=== PATIENT | male | born 1945 | race Caucasian/White ===

== ENCOUNTER 2016-09-07 13:11 | Emergency (ER) | payer MEDICARE, BC ==
--- NOTE | 2016-09-07 14:37 | ED ---
Ervin Mendoza Matthew, scribed for Jacklyn Fortune MD on 09/07/16 at 1425 . Progress - Progress Note Progress Note: A 70 y/o male presents to the ED with constipation. He recently had back surgery on August 15, 2016 for a fracture L1 disc. The patient has been taking numerous pain medications. His PCP did a rectal exam, but was unable to remove the blockage and a fleets at home was unsuccessful. Associated symptoms include mild diffuse abdominal pain. Physical Findings: Very mild bilateral lower quadrant abdominal tenderness labs kub ordered Course/Dx - Diagnoses Provider Diagnoses: Constipation The documentation as recorded by the rickibErvin gurrola Matthew accurately reflects the service I personally performed and the decisions made by , Jacklyn Fortune MD.
[2016-09-07 14:46] LABS: Urine Bilirubin Negative (Negative); Urine Glucose Negative (Negative); Urine Nitrite Negative (Negative)
--- NOTE | 2016-09-07 14:58 | RAD ---
HISTORY: Constipation COMPARISONS: None VIEWS: Frontal views of the abdomen. FINDINGS: BOWEL: There is a nonobstructive bowel gas pattern. There is a large amount of stool within the proximal and transverse colon, and rectum. CALCULI: There are no abnormal calculi. BONES AND SOFT TISSUES: The patient is status post spinal fusion OTHER FINDINGS: The lung bases are clear. There is no subphrenic gas. IMPRESSION: NONOBSTRUCTIVE BOWEL GAS PATTERN. LARGE AMOUNT OF STOOL IN THE COLON
[2016-09-07 16:04] VITALS: BP 131/57
[2016-09-07 16:40] LABS: Hematocrit 37 % (42-52); Hemoglobin 12.5 g/dl (14.0-18.0); Mean Corpuscular HGB Conc 33 g/dl (31-36); Mean Corpuscular Hemoglobin 30 pg (27-31); Mean Corpuscular Volume 89 fL (80-94); Mean Platelet Volume 8 um3 (7.4-10.4); Red Blood Count 4.18 10^6/ul (4.0-5.4); Red Cell Distribution Width 14 % (10.5-15); White Blood Count 6.5 10^3/ul (3.5-10.8)
[2016-09-07 16:56] LABS: ALT 18 U/L (7-52); AST 20 U/L (13-39); Albumin 3.7 g/dL (3.2-5.2); Alkaline Phosphatase 177 U/L (34-104); Anion Gap 9 mmol/L (2-11); BUN/Creatinine Ratio 28.6 (8-20); Blood Urea Nitrogen 20 mg/dL (6-24); C Reactive Protein 65.46 mg/L (< 5.00); CO2 Carbon Dioxide 27 mmol/L (22-32); Calcium 9.2 mg/dL (8.6-10.3); Chloride 95 mmol/L (101-111); EGFR African American 143.8 (>60); EGFR Non-African American 111.8 (>60); Globulin 2.8 g/dL (2-4); Glucose 120 mg/dL (70-100); Lipase < 10 U/L (11.0-82.0); Sodium 131 mmol/L (133-145); Total Protein 6.5 g/dL (6.4-8.9)
[2016-09-07] MEDS: NS 0.9% 1000 ML* 2,000 ML IV ONE ×2 (19:00→20:37)
--- NOTE | 2016-09-07 19:42 | RAD ---
INDICATION: Constipation, recent L2 surgery. COMPARISON: There are no prior studies available for comparison. TECHNIQUE: A CT scan of the abdomen and pelvis was performed without intravenous or oral contrast. Contiguous axial sections were obtained from the lung bases through the symphysis pubis. Images were reconstructed in the coronal and sagittal planes. FINDINGS: The lung bases are clear. No pleural effusion is present. The liver is mildly enlarged. No significant focal abnormality is seen on this noncontrast study. The gallbladder appears distended. The spleen is within normal limits in size. There is diffuse fatty infiltration present throughout the pancreas. The adrenal glands and kidneys are normal in size. No renal calculi or hydronephrosis is seen. The aorta is normal in caliber with mild calcific plaque present. No significant enlarged retroperitoneal lymph nodes are seen. The patient appears to be status post partial gastrectomy with removal of the antrum and a portion of the body of the stomach. The small bowel and colon appear nondistended. The appendix is not visualized. There is no evidence for diverticulitis or colitis. The rectum is distended with retained stool. There is a periumbilical hernia containing fat and a portion of the transverse colon. . No free intraperitoneal air or fluid is seen. There is a moderate compression fracture of the L1 vertebral body. There is stabilization of the fracture with a posterior spinal fusion extending from the T11 through the L3 levels with pedicle screws. IMPRESSION: 1. NO EVIDENCE FOR ACUTE INTRA-ABDOMINAL ABNORMALITY. 2. DISTENTION OF THE RECTUM WITH RETAINED STOOL CONSISTENT WITH THE PATIENT'S HISTORY OF CONSTIPATION. 3. PERIUMBILICAL HERNIA CONTAINING FAT AND NONDISTENDED TRANSVERSE COLON. 4. L1 COMPRESSION FRACTURE STATUS POST POSTERIOR SPINAL FUSION FROM T11 THROUGH L3.
--- NOTE | 2016-09-07 19:55 | RAD ---
INDICATION: Constipation and recent L2 surgery. COMPARISON: There are no prior studies available for comparison. TECHNIQUE: Contiguous axial sections were obtained beginning above the T12 vertebra and continuing through the L5-S1 disc space. Images were reconstructed in the sagittal and coronal planes. FINDINGS: The vertebra appear osteopenic. There is a burst fracture of the L1 vertebral body with loss of height of approximately 50%. There is retropulsion of fracture fragments into the anterior spinal canal approximately 5 mm. The fracture appears to involve the right L1 pedicle. There is a pedicle screw present on the left side. The patient is status post posterior spinal fusion from T11 through L3 with pedicle screws. The fracture is likely posttraumatic although a pathologic fracture cannot be excluded by this study. Evaluation of the spinal canal is limited due to metallic artifact from the surgical hardware. At the L1 level the spinal canal is mild to moderately narrowed secondary to retropulsion of fracture fragments from the burst fracture. At the L1-L2 level there is no evidence for spinal canal narrowing. Neural foramen appear patent on both sides. At the L2-L3 level there is a mild broad-based disc bulge and mild hypertrophic changes within the facet joints which causes mild spinal canal narrowing. Neural foramen appear patent on both sides. At the L3-L4 level there is a mild broad-based disc bulge and mild hypertrophic changes within the facet joints. No significant spinal canal or neural foraminal narrowing is seen. At the L4-L5 level there is a minimal broad-based disc bulge and mild hypertrophic changes within the facet joints. No significant spinal canal or neural foraminal narrowing is present. At the L5-S1 level there is a minimal broad-based disc bulge the spinal canal and neural foramen appear patent. IMPRESSION: BURST FRACTURE OF THE L1 VERTEBRAL BODY WITH EXTENSION INTO THE RIGHT PEDICLE STABILIZED WITH A POSTERIOR SPINAL FUSION. THERE IS RETROPULSION OF FRACTURE FRAGMENTS INTO THE ANTERIOR SPINAL CANAL CAUSING MILD TO MODERATE SPINAL CANAL NARROWING.
--- NOTE | 2016-09-07 21:10 | ED ---
Hina Mendoza Michael, scribed for Ibrahima Matos MD on 09/07/16 at 1742 . GI/ HPI - HPI Summary HPI Summary: 70 y/o male comes to the ED presenting with constipation that started 7 days ago. The pt previously had a back surgery on 08/15/16 to repair a L1 compression fracture that occurred on 08/05/16. Since the back surgery the pt has not had nml BM. His BM's have been small and black. The pt had a rectal exam performed by his PCP, but he was unable to remove the blockage. He also c/o three months of bilat paresthesia, diffuse abd pain, and has a wound on his left third toe. The pt denies bilat LE weakness and urination symptoms. - History of Current Complaint Chief Complaint: EDGeneral Time Seen by Provider: 09/07/16 17:37 Stated Complaint: constipation Hx Obtained From: Patient, Medical Records Onset/Duration: Started Days Ago - 7 days, Still Present Timing: Constant Severity: Moderate Current Severity: Moderate Pain Intensity: 6 Location of Pain: Diffuse Associated Signs and Symptoms: Positive: Constipation, Abdominal Pain, Other: - bilat LE paresthesia. wound on left 3rd toe.. Negative: Weakness - Allergy/Home Medications Allergies/Adverse Reactions: Allergies Allergy/AdvReac Type Severity Reaction Status Date / Time No Known Allergies Allergy Verified 10/27/15 15:50 PMH/Surg Hx/FS Hx/Imm Hx Previously Healthy: Yes - pt denies significant PMHx Infectious Disease History: No Infectious Disease History: Denies: Traveled Outside the [place] in Last 30 Days - Family History Known Family History: Positive: None Family History: pt denies a significant PMHx - Social History Occupation: Retired Lives: Alone Review of Systems Negative: Fever Positive: Abdominal Pain, Other - constipation Positive: Other - wound on left 3rd toe Positive: Paresthesia. Negative: Weakness All Other Systems Reviewed And Are Negative: Yes Physical Exam Triage Information Reviewed: Yes Vital Signs On Initial Exam: Initial Vitals Temp Pulse Resp BP Pulse Ox 99.2 F 68 18 124/58 99 09/07/16 13:27 09/07/16 13:27 09/07/16 13:27 09/07/16 13:27 09/07/16 13:27 Vital Signs Reviewed: Yes Appearance: Positive: Well-Appearing, No Pain Distress Skin: Positive: Warm, Skin Color Reflects Adequate Perfusion, Dry Head/Face: Positive: Normal Head/Face Inspection Eyes: Positive: EOMI, [place] ENT: Positive: Other - dry oral mucosa Neck: Positive: Supple, Nontender Respiratory/Lung Sounds: Positive: Clear to Auscultation, Breath Sounds Present Cardiovascular: Positive: RRR Abdomen Description: Positive: Nontender - diffuse tenderness, Soft Bowel Sounds: Positive: Hypoactive Male Genital Exam: Positive: other - RECTAL WITH GOOD RECTAL TONE, NO PERINEAL NUMBNESS. STOOL BLACK. STOOL INVAULT. Musculoskeletal: Positive: Normal, Strength/ROM Intact Neurological: Positive: Normal, Sensory/Motor Intact, Alert, Oriented to Person Place, Time Psychiatric: Positive: Affect/Mood Appropriate Diagnostics - Vital Signs Vital Signs Temp Pulse Resp BP Pulse Ox 09/07/16 16:03 98.7 F 75 16 131/57 100 09/07/16 14:46 97.4 F 70 16 115/53 100 09/07/16 13:27 99.2 F 68 18 124/58 99 - Laboratory Lab Results: Lab Results 09/07/16 09/07/16 09/07/16 Range/Units 14:20 16:16 16:16 WBC 6.5 (3.5-10.8) 10^3/ul RBC 4.18 (4.0-5.4) 10^6/ul Hgb 12.5 L (14.0-18.0) g/dl Hct 37 L (42-52) % MCV 89 (80-94) fL MCH 30 (27-31) pg MCHC 33 (31-36) g/dl RDW 14 (10.5-15) % Plt Count 229 (150-450) 10^3/ul MPV 8 (7.4-10.4) um3 Neut % (Auto) 73.5 (38-83) % Lymph % (Auto) 16.1 L (25-47) % [place] % (Auto) 8.4 (1-9) % Eos % (Auto) 1.3 (0-6) % Baso % (Auto) 0.7 (0-2) % Absolute Neuts (auto) 4.8 (1.5-7.7) 10^3/ul Absolute Lymphs (auto) 1.0 (1.0-4.8) 10^3/ul Absolute Monos (auto) 0.5 (0-0.8) 10^3/ul Absolute Eos (auto) 0.1 (0-0.6) 10^3/ul Absolute Basos (auto) 0 (0-0.2) 10^3/ul Absolute Nucleated RBC 0 10^3/ul Nucleated RBC % 0 Sodium 131 L (133-145) mmol/L Potassium 4.0 (3.5-5.0) mmol/L Chloride 95 L (101-111) mmol/L Carbon Dioxide 27 (22-32) mmol/L Anion Gap 9 (2-11) mmol/L BUN 20 (6-24) mg/dL Creatinine 0.70 (0.67-1.17) mg/dL Est GFR ( Amer) 143.8 (>60) Est GFR (Non-Af Amer) 111.8 (>60) BUN/Creatinine Ratio 28.6 H (8-20) Glucose 120 H (70-100) mg/dL Calcium 9.2 (8.6-10.3) mg/dL Total Bilirubin 0.50 (0.2-1.0) mg/dL AST 20 (13-39) U/L ALT 18 (7-52) U/L Alkaline Phosphatase 177 H (34-104) U/L C-Reactive Protein 65.46 H (< 5.00) mg/L Total Protein 6.5 (6.4-8.9) g/dL Albumin 3.7 (3.2-5.2) g/dL Globulin 2.8 (2-4) g/dL Albumin/Globulin Ratio 1.3 (1-3) Lipase < 10 L (11.0-82.0) U/L Urine Color [place] Urine Appearance Clear Urine pH 5.0 (5-9) Ur Specific [place] 1.036 H (1.010-1.030) Urine Protein Negative (Negative) Urine Ketones Trace H (Negative) Urine Blood Negative (Negative) Urine Nitrate Negative (Negative) Urine Bilirubin Negative (Negative) Urine Urobilinogen Negative (Negative) Ur Leukocyte Esterase Negative (Negative) Urine Glucose Negative (Negative) Result Diagrams: 09/07/16 16:16 09/07/16 16:16 Lab Statement: Any lab studies that have been ordered have been reviewed, and results considered in the medical decision making process. - Radiology ABD XR Xray Interpretation: Positive (See Comments) - NONOBSTRUCTIVE BOWEL GAS PATTERN. LARGE AMOUNT OF STOOL IN THE COLON Radiology Interpretation Completed By: Radiologist KATHLEEN Course/Dx - Course Assessment/Plan: RECTAL WITH GOOD TONE, NO NUMBNESS. LARGE AMOUNT OF STOOL AFTER SOAP SUDS ENEMA. DISCHARGE HOME STABLE. - Diagnoses Provider Diagnoses: Constipation Discharge - Discharge Plan Condition: Stable Disposition: HOME Patient Education Materials: Constipation (ED) Additional Instructions: FOLLOW UP WITH YOUR DOCTOR. RETURN TO THE EMERGENCY DEPARTMENT FOR ANY WORSENING OF YOUR CONDITION; PAIN, FEVER, WEAKNESS, NUMBNESS, YOU FEEL ILL OR QUESTIONS OR CONCERNS. The documentation as recorded by the Hina hernandez Michael accurately reflects the service I personally performed and the decisions made by me, Ibrahima Matos MD.
== END 2016-09-07 21:43 | disposition home or self-care (01) ==
LOC: ED 13:11
DX: K59.00 Constipation, unspecified (principal); R10.9 Unspecified abdominal pain; R20.9 Unspecified disturbances of skin sensation; S90.935A Unspecified superficial injury of left lesser toe(s), initial encounter
CPT/HCPCS: 36415; 72131; 74000; 74176; 80053; 81003; 82272; 83690; 85025; 86140; 96360; 99282

== ENCOUNTER 2016-09-10 16:25 | Emergency (ER) | payer MEDICARE, BC ==
[2016-09-10 18:04] VITALS: BP 140/80
[2016-09-10 19:44] LABS: Hematocrit 33 % (42-52); Hemoglobin 10.9 g/dl (14.0-18.0); Mean Corpuscular HGB Conc 33 g/dl (31-36); Mean Corpuscular Hemoglobin 30 pg (27-31); Mean Corpuscular Volume 90 fL (80-94); Mean Platelet Volume 8 um3 (7.4-10.4); Red Blood Count 3.69 10^6/ul (4.0-5.4); Red Cell Distribution Width 15 % (10.5-15); White Blood Count 4.9 10^3/ul (3.5-10.8)
[2016-09-10 20:01] LABS: Albumin 2.9 g/dL (3.2-5.2); BUN/Creatinine Ratio 26.5 (8-20); Calcium 8.2 mg/dL (8.6-10.3); EGFR Non-African American 168.8 (>60); Globulin 2.4 g/dL (2-4); Potassium 3.5 mmol/L (3.5-5.0); Total Bilirubin 0.4 mg/dL (0.2-1.0); Total Protein 5.3 g/dL (6.4-8.9)
--- NOTE | 2016-09-10 20:03 | RAD ---
INDICATION: Abdominal pain. COMPARISON: Comparison is made with a prior CT of the abdomen and pelvis from September 07, 2016. TECHNIQUE: Frontal supine films of the abdomen were obtained. FINDINGS: The small bowel and colon appear nondistended. There are several surgical clips which project in the right and left upper quadrants. The patient is status post posterior spinal fusion with pedicle screws extending from T11-L3. IMPRESSION: POSTSURGICAL CHANGES, NO EVIDENCE FOR OBSTRUCTION.
--- NOTE | 2016-09-10 21:05 | ED ---
Vianney Mendoza Erika, scribed for aJcklyn Fortune MD on 09/10/16 at 1845 . Abdominal Pain/Male - HPI Summary HPI Summary: Patient is a 70-year-old male presenting to the ED with a CC of diffuse abdominal pain starting at 15:00 today. He reports that he was resting today, when he woke up around 15:00 with what felt like gas pains in the bilateral lower abdomen. He took some Mylanta, which did not alleviate the symptoms. He then describes sudden-onset of what felt like "a big gas bubble that filled me up." He took more Mylanta at that time. Pt states that pain does not radiate into his chest, jaw, or arm. Pain has since resolved. Patient had spinal surgery in early August 2016, and has been taking pain medication. He states he has become constipated, so was seen here 3 days ago, where he had an Abd XR, CT A/P, and an enema - he felt improved after. PSHx ulcer surgery. Hx A Fib. Pt reports he lives alone, and does not smoke, drink, or use any drugs. - History of Current Complaint Chief Complaint: EDAbdPain Stated Complaint: ABD PAIN Time Seen by Provider: 09/10/16 18:40 Hx Obtained From: Patient, Family/Family Practice Nurse Practitioner - Onset/Duration: Gradual Onset, Lasting Hours, Resolved Timing: Intermittent Severity Initially: Moderate Pain Intensity: 3 Pain Scale Used: 0-10 Numeric Location: Diffuse Radiates: No Alleviating Factor(s): Other: - Mylanta - Allergies/Home Medications Allergies/Adverse Reactions: Allergies Allergy/AdvReac Type Severity Reaction Status Date / Time No Known Allergies Allergy Verified 10/27/15 15:50 PMH/Surg Hx/FS Hx/Imm Hx Cardiovascular History: Reports: Hx Atrial Fibrillation - Surgical History Surgery Procedure, Year, and Place: L2 SURGERY, ulcer Infectious Disease History: Denies: Traveled Outside the [place] in Last 30 Days - Family History Known Family History: Negative: Cardiac Disease, Hypertension, Diabetes - Social History Lives: Alone Alcohol Use: None Hx Substance Use: No Substance Use Type: Reports: None Hx Tobacco Use: No Smoking Status (MU): Never Smoked Tobacco Review of Systems Negative: Chest Pain Positive: Abdominal Pain Negative: Arthralgia, Myalgia All Other Systems Reviewed And Are Negative: Yes Physical Exam Triage Information Reviewed: Yes Vital Signs On Initial Exam: Initial Vitals Temp Pulse Resp BP Pulse Ox 97.5 F 82 10 140/80 97 09/10/16 17:54 09/10/16 17:54 09/10/16 17:54 09/10/16 17:54 09/10/16 17:54 Vital Signs Reviewed: Yes Appearance: Positive: Well-Appearing, No Pain Distress Skin: Positive: Warm, Skin Color Reflects Adequate Perfusion, Dry, Other - Wounds in the lumbar/thoracic area and clean, dry, and intact, with no erythema Eyes: Positive: EOMI, [place] Neck: Positive: Supple, Nontender Respiratory/Lung Sounds: Positive: Clear to Auscultation, Breath Sounds Present. Negative: Rales, Rhonchi, Wheezes Cardiovascular: Positive: RRR, Other - No gallops. Negative: Murmur, Rub Abdomen Description: Positive: Nontender, Soft, Other: - No rebound. Negative: Distended, Guarding Bowel Sounds: Positive: Present Musculoskeletal: Positive: Other - CASSANDRA, no edema Neurological: Positive: Sensory/Motor Intact, Alert, Oriented to Person Place, Time, Other - CN II-XII intact Psychiatric: Positive: Affect/Mood Appropriate Diagnostics - Vital Signs Vital Signs Temp Pulse Resp BP Pulse Ox 09/10/16 17:54 97.5 F 82 10 140/80 97 - Laboratory Lab Results: Lab Results 09/10/16 09/10/16 Range/Units 19:30 19:30 WBC 4.9 (3.5-10.8) 10^3/ul RBC 3.69 L (4.0-5.4) 10^6/ul Hgb 10.9 L (14.0-18.0) g/dl Hct 33 L (42-52) % MCV 90 (80-94) fL MCH 30 (27-31) pg MCHC 33 (31-36) g/dl RDW 15 (10.5-15) % Plt Count 221 (150-450) 10^3/ul MPV 8 (7.4-10.4) um3 Neut % (Auto) 70.1 (38-83) % Lymph % (Auto) 18.5 L (25-47) % [place] % (Auto) 8.2 (1-9) % Eos % (Auto) 2.2 (0-6) % Baso % (Auto) 1.0 (0-2) % Absolute Neuts (auto) 3.4 (1.5-7.7) 10^3/ul Absolute Lymphs (auto) 0.9 L (1.0-4.8) 10^3/ul Absolute Monos (auto) 0.4 (0-0.8) 10^3/ul Absolute Eos (auto) 0.1 (0-0.6) 10^3/ul Absolute Basos (auto) 0 (0-0.2) 10^3/ul Absolute Nucleated RBC 0 10^3/ul Nucleated RBC % 0 Sodium 140 (133-145) mmol/L Potassium 3.5 (3.5-5.0) mmol/L Chloride 107 (101-111) mmol/L Carbon Dioxide 25 (22-32) mmol/L Anion Gap 8 (2-11) mmol/L BUN 13 (6-24) mg/dL Creatinine 0.49 L (0.67-1.17) mg/dL Est GFR ( Amer) 217.0 (>60) Est GFR (Non-Af Amer) 168.8 (>60) BUN/Creatinine Ratio 26.5 H (8-20) Glucose 110 H (70-100) mg/dL Calcium 8.2 L (8.6-10.3) mg/dL Total Bilirubin 0.40 (0.2-1.0) mg/dL AST 49 H (13-39) U/L ALT 25 (7-52) U/L Alkaline Phosphatase 332 H (34-104) U/L Total Protein 5.3 L (6.4-8.9) g/dL Albumin 2.9 L (3.2-5.2) g/dL Globulin 2.4 (2-4) g/dL Albumin/Globulin Ratio 1.2 (1-3) Result Diagrams: 09/10/16 19:30 09/10/16 19:30 Lab Statement: Any lab studies that have been ordered have been reviewed, and results considered in the medical decision making process. - Radiology Abd XR Radiology Interpretation Completed By: Radiologist - IMPRESSION: POSTSURGICAL CHANGES, NO EVIDENCE FOR OBSTRUCTION. - EKG 18:55 Cardiac Rate: NL - 61 bpm EKG Rhythm: Sinus Rhythm EKG Interpretation: No ST elevation. No Q waves EKG Comparison: Other - No comparison available Abdominal Pain Fem Course/Dx - Course Course Of Treatment: pt without abdominal pain here - Diagnoses Provider Diagnoses: Abdominal pain Discharge - Discharge Plan Condition: Stable Disposition: HOME Patient Education Materials: Abdominal Pain (ED) Referrals: [facility] [place]Outside] Additional Instructions: Please follow up with your PCP. The documentation as recorded by the Vianney hernandez Erika accurately reflects the service I personally performed and the decisions made by me, Jacklyn Fortune MD.
== END 2016-09-10 21:50 | disposition home or self-care (01) ==
LOC: ED 16:25
DX: R10.9 Unspecified abdominal pain (principal)
CPT/HCPCS: 36415; 74000; 80053; 85025; 93005; 99282

== ENCOUNTER 2016-09-15 09:41 | Emergency (ER) | payer MEDICARE, BC ==
[2016-09-15] MEDS ORDERED: Ketorolac INJ* 30 MG/ML 1 ML VIAL IV ONE (12:15)
[2016-09-15 13:56] LABS: Hematocrit 32 % (42-52); Hemoglobin 10.6 g/dl (14.0-18.0); Mean Corpuscular HGB Conc 33 g/dl (31-36); Mean Corpuscular Hemoglobin 30 pg (27-31); Mean Corpuscular Volume 90 fL (80-94); Mean Platelet Volume 8 um3 (7.4-10.4); Red Blood Count 3.55 10^6/ul (4.0-5.4); Red Cell Distribution Width 15 % (10.5-15); White Blood Count 3.7 10^3/ul (3.5-10.8)
[2016-09-15 14:12] LABS: Troponin I 0.01 ng/mL (<0.04)
[2016-09-15 14:14] LABS: Albumin 2.6 g/dL (3.2-5.2); BUN/Creatinine Ratio 25.5 (8-20); Calcium 7.8 mg/dL (8.6-10.3); EGFR African American 227.7 (>60); EGFR Non-African American 177.1 (>60); Globulin 2.2 g/dL (2-4); Magnesium 1.6 mg/dL (1.9-2.7); Potassium 3.6 mmol/L (3.5-5.0); Total Bilirubin 0.3 mg/dL (0.2-1.0); Total Protein 4.8 g/dL (6.4-8.9)
[2016-09-15 14:53] LABS: TSH (Thyroid Stimulating Horm) 1.4 mcIU/mL (0.34-5.60)
[2016-09-15 15:06] VITALS: BP 107/50
--- NOTE | 2016-09-15 15:14 | ED ---
Ervin Mendoza Matthew, scribed for Oj Conner MD on 09/15/16 at 1215 . Palpitations / Dysrhythmia - HPI Summary HPI Summary: A 70 y/o male presents to the ED with AFib at 02:00 this morning, which lasted for approximately 4-5 hours. The patient took half of a sotalol upon awaking then went back to sleep. He then woke-up and took his normal medications. Soon after, his AFib resolved on its own. He denies lightheadedness, SOB, nausea, and diaphoresis during this episode of AFib. The patient's also c/o of multiple wounds to the left foot. - History of Current Complaint Chief Complaint: EDDysrhythmPalp Time Seen by Provider: 09/15/16 11:25 Hx Obtained From: Patient Onset/Duration: Sudden Onset, Lasting Hours, Resolved Timing: Constant Severity Initially: Moderate Severity Currently: None Character: Irregular Aggravating: Nothing Alleviating: Medication Associated Signs & Symptoms: Negative - Allergy/Home Medications Allergies/Adverse Reactions: Allergies Allergy/AdvReac Type Severity Reaction Status Date / Time No Known Allergies Allergy Verified 10/27/15 15:50 Home Medications: Home Medications Calcium [Oyster-Jamison 500] 500 mg PO DAILY 09/15/16 [History Confirmed 09/15/16] DOXYcycline CAP(*) [DOXYcycline 100MG CAP(*)] 100 mg PO BID 09/15/16 [History Confirmed 09/15/16] Magnesium Oxide TAB* [MagOx 400 TAB*] 400 mg PO DAILY 09/15/16 [History Confirmed 09/15/16] Multivitamins/Minerals TAB* [Theragran/minerals TAB*] 1 tab PO DAILY 09/15/16 [ History Confirmed 09/15/16] Omeprazole CAP* [Prilosec CAP* 20 MG] 20 mg PO DAILY 09/15/16 [History Confirmed 09/15/16] PMH/Surg Hx/FS Hx/Imm Hx Cardiovascular History: Reports: Hx Atrial Fibrillation - Surgical History Surgery Procedure, Year, and Place: L2 SURGERY, ulcer Infectious Disease History: No Infectious Disease History: Denies: Traveled Outside the [place] in Last 30 Days - Family History Known Family History: Negative: Cardiac Disease, Hypertension, Diabetes Family History: pt denies a significant PMHx - Social History Alcohol Use: None Hx Substance Use: No Substance Use Type: Reports: None Hx Tobacco Use: No Smoking Status (MU): Never Smoked Tobacco Review of Systems Constitutional: Negative Negative: Skin Diaphoresis Eyes: Negative ENT: Negative Cardiovascular: Other - AFib - since resolved Respiratory: Negative Negative: Shortness Of Breath Gastrointestinal: Negative Negative: Nausea Genitourinary: Negative Musculoskeletal: Negative Skin: Negative Neurological: Negative Psychological: Normal All Other Systems Reviewed And Are Negative: Yes Physical Exam Triage Information Reviewed: Yes Vital Signs On Initial Exam: Initial Vitals Temp Pulse Resp BP Pulse Ox 98.4 F 65 16 143/77 99 09/15/16 10:00 09/15/16 10:00 09/15/16 10:00 09/15/16 10:00 09/15/16 10:00 Vital Signs Reviewed: Yes Appearance: Positive: Well-Appearing, No Pain Distress Skin: Positive: Other - The patient's 2nd toe on the left foot is raw at the tip with open areas between the 2/3 and 3/4 toes. The 3ed toe looks necrotic on the lateral distal boarder. Head/Face: Positive: Normal Head/Face Inspection Eyes: Positive: Normal ENT: Positive: Normal ENT inspection Neck: Positive: Supple, Nontender Respiratory/Lung Sounds: Positive: Clear to Auscultation, Breath Sounds Present Cardiovascular: Positive: RRR Abdomen Description: Positive: Nontender, Soft Bowel Sounds: Positive: Present Musculoskeletal: Positive: Normal, Strength/ROM Intact Neurological: Positive: Normal, Sensory/Motor Intact, Alert, Oriented to Person Place, Time Psychiatric: Positive: Normal, Affect/Mood Appropriate Diagnostics - Vital Signs Vital Signs Temp Pulse Resp BP Pulse Ox 09/15/16 10:30 64 10 135/57 98 09/15/16 10:07 65 99 09/15/16 10:05 143/77 09/15/16 10:00 98.4 F 65 16 143/77 99 - Laboratory Lab Results: Lab Results 09/15/16 09/15/16 09/15/16 Range/Units 13:48 13:48 13:48 WBC 3.7 (3.5-10.8) 10^3/ul RBC 3.55 L (4.0-5.4) 10^6/ul Hgb 10.6 L (14.0-18.0) g/dl Hct 32 L (42-52) % MCV 90 (80-94) fL MCH 30 (27-31) pg MCHC 33 (31-36) g/dl RDW 15 (10.5-15) % Plt Count 201 (150-450) 10^3/ul MPV 8 (7.4-10.4) um3 Neut % (Auto) 65.1 (38-83) % Lymph % (Auto) 22.6 L (25-47) % [place] % (Auto) 8.3 (1-9) % Eos % (Auto) 2.6 (0-6) % Baso % (Auto) 1.4 (0-2) % Absolute Neuts (auto) 2.4 (1.5-7.7) 10^3/ul Absolute Lymphs (auto) 0.8 L (1.0-4.8) 10^3/ul Absolute Monos (auto) 0.3 (0-0.8) 10^3/ul Absolute Eos (auto) 0.1 (0-0.6) 10^3/ul Absolute Basos (auto) 0.1 (0-0.2) 10^3/ul Absolute Nucleated RBC 0 10^3/ul Nucleated RBC % 0.1 Sodium 138 (133-145) mmol/L Potassium 3.6 (3.5-5.0) mmol/L Chloride 105 (101-111) mmol/L Carbon Dioxide 27 (22-32) mmol/L Anion Gap 6 (2-11) mmol/L BUN 12 (6-24) mg/dL Creatinine 0.47 L (0.67-1.17) mg/dL Est GFR ( Amer) 227.7 (>60) Est GFR (Non-Af Amer) 177.1 (>60) BUN/Creatinine Ratio 25.5 H (8-20) Glucose 97 (70-100) mg/dL Lactic Acid 0.7 (0.5-2.0) mmol/L Calcium 7.8 L (8.6-10.3) mg/dL Magnesium 1.6 L (1.9-2.7) mg/dL Total Bilirubin 0.30 (0.2-1.0) mg/dL AST 14 (13-39) U/L ALT 8 (7-52) U/L Alkaline Phosphatase 152 H (34-104) U/L Troponin I 0.01 (<0.04) ng/mL Total Protein 4.8 L (6.4-8.9) g/dL Albumin 2.6 L (3.2-5.2) g/dL Globulin 2.2 (2-4) g/dL Albumin/Globulin Ratio 1.2 (1-3) TSH 1.40 (0.34-5.60) mcIU/mL Result Diagrams: 09/15/16 13:48 09/15/16 13:48 Lab Statement: Any lab studies that have been ordered have been reviewed, and results considered in the medical decision making process. - EKG 09:41 Cardiac Rate: NL - 69 bpm EKG Rhythm: Sinus Rhythm Course/Dx - Course Course Of Treatment: Mr. Walden presetned saying that he had a 4-5 hour episdoe of A-Fib that has now resolved.. He took an extra Sotolol. His W/U and monitoring here were normal and he will be D/C'd to F/U with his PMD. He has open sores on his left 2nd and 3rd toes and these may need further W/U. - Diagnoses Provider Diagnoses: Heart palpitations Discharge - Discharge Plan Condition: Stable Disposition: HOME Patient Education Materials: Palpitations (ED) Referrals: [facility] – [place] [facility] REFERRAL [Outside] Additional Instructions: Please follow-up with your primary care physician in 2 days. The documentation as recorded by the Ervin hernandez Matthew accurately reflects the service I personally performed and the decisions made by me, Oj Conner MD.
== END 2016-09-15 15:19 | disposition home or self-care (01) ==
LOC: ED 09:41
DX: R00.2 Palpitations (principal); I48.91 Unspecified atrial fibrillation; S91.302A Unspecified open wound, left foot, initial encounter; X58.XXXA Exposure to other specified factors, initial encounter; Y92.9 Unspecified place or not applicable
CPT/HCPCS: 36415; 80053; 83605; 83735; 84443; 84484; 85025; 93005; 96374; 99283; J1885

== ENCOUNTER 2016-10-04 07:13 | Emergency (ER) | payer MEDICARE, BC ==
[2016-10-04] MEDS ORDERED: Diltiazem DRIP* 100 MG/100 ML ADDV.BAG IVPB ONE (07:37)
[2016-10-04] MEDS ORDERED: Diltiazem IV* 5 MG/ML 5 ML VIAL (for loading dose/IV Push) (25 MG) IV PUSH ONE (07:37)
[2016-10-04] MEDS ORDERED: NS 0.9% 1000 ML* 1,000 ML IV ONE (07:37)
[2016-10-04 07:50] LABS: Hematocrit 37 % (42-52); Hemoglobin 12.2 g/dl (14.0-18.0); Mean Corpuscular HGB Conc 33 g/dl (31-36); Mean Corpuscular Hemoglobin 29 pg (27-31); Mean Corpuscular Volume 88 fL (80-94); Mean Platelet Volume 8 um3 (7.4-10.4); Red Blood Count 4.22 10^6/ul (4.0-5.4); Red Cell Distribution Width 15 % (10.5-15); White Blood Count 8.6 10^3/ul (3.5-10.8)
--- NOTE | 2016-10-04 08:02 | RAD ---
INDICATION: Pneumonia. CHF. COMPARISON: None TECHNIQUE: An AP portable view obtained at 0745 hours is submitted. FINDINGS: Bones/Soft Tissues: There are no acute bony findings. Cardiomediastinal: The cardiomediastinal silhouette is normal. Lungs: Mild right base infiltrate or atelectasis. Pleura: There are no significant pleural effusions. Other: None IMPRESSION: MILD RIGHT BASILAR INFILTRATE OR ATELECTASIS
[2016-10-04 08:04] LABS: Troponin I 0.01 ng/mL (<0.04)
[2016-10-04 08:29] LABS: TSH (Thyroid Stimulating Horm) 1.08 mcIU/mL (0.34-5.60)
[2016-10-04 08:38] LABS: Albumin 3.6 g/dL (3.2-5.2); BUN/Creatinine Ratio 14.8 (8-20); EGFR African American 168.6 (>60); EGFR Non-African American 131.1 (>60); Globulin 3.1 g/dL (2-4); Magnesium 1.7 mg/dL (1.9-2.7); Potassium 3.7 mmol/L (3.5-5.0); Total Bilirubin 0.4 mg/dL (0.2-1.0); Total Protein 6.7 g/dL (6.4-8.9)
[2016-10-04 08:42] LABS: Urine Bilirubin Negative (Negative); Urine Glucose Negative (Negative); Urine Nitrite Negative (Negative)
[2016-10-04 09:04] VITALS: BP 146/49
--- NOTE | 2016-10-04 09:37 | ED ---
Justen Mendoza SooYoung, scribed for Guillermo Mayes MD on 10/04/16 at 0723 . Palpitations / Dysrhythmia - HPI Summary HPI Summary: A 70 y/o M presents to ED with c/o afib onset middle of night, woke him from sleep. Pert PMHx: Afib, has been admitted for it. Denies CP, SOB, dizziness. Pt unable to describe sensation.His doctor recommends on such occasions that he take 1/2 a Sotalol and 2 Tylenol and try to go back to sleep, which is what pt did. Seemed to mildly help, but did not resolve entirely. He notes having had several operations over the past few months, including inguinal stent for blocked artery in L foot two days ago. Pt started Plavix three days ago. He is schedule to see his roof bolter helper in [place] in two days. - History of Current Complaint Time Seen by Provider: 10/04/16 07:17 Hx Obtained From: Patient Onset/Duration: Sudden Onset, Lasting Hours, Still Present Timing: Constant Severity Initially: Moderate Severity Currently: Mild Alleviating: Medication Associated Signs & Symptoms: Negative - Allergy/Home Medications Allergies/Adverse Reactions: Allergies Allergy/AdvReac Type Severity Reaction Status Date / Time No Known Allergies Allergy Verified 10/02/16 09:01 PMH/Surg Hx/FS Hx/Imm Hx Previously Healthy: No Endocrine/Hematology History: Denies: Hx Diabetes Cardiovascular History: Reports: Hx Atrial Fibrillation - Surgical History Surgery Procedure, Year, and Place: L1 SURGERY, INTESTINAL SURGERY, R Wrist - Family History Known Family History: Positive: None Negative: Cardiac Disease, Hypertension, Diabetes Family History: pt denies a significant PMHx - Social History Occupation: Retired Lives: Alone Alcohol Use: None Hx Substance Use: No Substance Use Type: Reports: None Hx Tobacco Use: No Smoking Status (MU): Never Smoked Tobacco Review of Systems Positive: Palpitations - afib. Negative: Chest Pain Negative: Shortness Of Breath Neurological: Other - neg: dizziness All Other Systems Reviewed And Are Negative: Yes Physical Exam - Summary Physical Exam Summary: The patient is well-nourished in no acute distress and in no acute pain. The skin is warm and dry. PALE. HEENT: The head is normocephalic and atraumatic. The pupils are equal and reactive. The conjunctivae are clear and without drainage. Nares are patent and without drainage, NO RHINORRHEA. MILDLY DRY ORAL mucous membranes and the throat is without erythema and exudate. The external ears are intact. The ear canals are patent and without drainage. The tympanic membranes are intact. Neck is supple with full range of motion and non-tender. There are no carotid bruits. There is no neck vein distension. Respiratory: Chest is non-tender. Lungs are clear to auscultation and breath sounds are symmetrical and equal. Cardiovascular: TACHYCARDIC, IRREGULAR. There is no murmur or rub auscultated. There is no peripheral edema and FEMORAL PULSES ARE GOOD, DORSAL PEDIS PULSES GOOD IN BOTH FEET. Abdomen: The abdomen is soft and non-tender. There are normal bowel sounds heard in all four quadrants and there is no organomegaly palpated. Musculoskeletal: There is no back pain noted. Extremities are non-tender with full range of motion. There is good capillary refill. There is no peripheral edema or calf tenderness elicited. Neurological: Patient is alert and oriented to person, place and time. The patient has symmetrical motor strength in all four extremities. Cranial nerves are grossly intact. Deep tendon reflexes are symmetrical and equal in all four extremities. Psychiatric: The patient has an appropriate affect and does not exhibit any anxiety or depression. Triage Information Reviewed: Yes Vital Signs On Initial Exam: Initial Vitals Temp Pulse Resp BP Pulse Ox 97.8 F 112 16 152/88 100 10/04/16 07:16 10/04/16 07:16 10/04/16 07:16 10/04/16 07:16 10/04/16 07:16 Vital Signs Reviewed: Yes Diagnostics - Vital Signs Vital Signs Temp Pulse Resp BP Pulse Ox 10/04/16 09:25 97.9 F 63 20 146/49 10/04/16 09:00 62 20 146/49 98 10/04/16 08:30 127/52 10/04/16 08:25 122/50 10/04/16 08:20 73 16 133/49 98 10/04/16 08:15 87 21 131/63 98 10/04/16 08:10 128/76 10/04/16 08:05 88 11 135/63 98 10/04/16 08:00 93 17 118/57 99 10/04/16 07:55 89 12 123/55 100 10/04/16 07:33 118 24 99 10/04/16 07:32 136/75 10/04/16 07:16 97.8 F 112 16 152/88 100 - Laboratory Lab Results: Lab Results 10/04/16 10/04/16 10/04/16 Range/Units 07:26 07:26 07:26 WBC 8.6 (3.5-10.8) 10^3/ul RBC 4.22 (4.0-5.4) 10^6/ul Hgb 12.2 L (14.0-18.0) g/dl Hct 37 L (42-52) % MCV 88 (80-94) fL MCH 29 (27-31) pg MCHC 33 (31-36) g/dl RDW 15 (10.5-15) % Plt Count 278 (150-450) 10^3/ul MPV 8 (7.4-10.4) um3 Neut % (Auto) 69.8 (38-83) % Lymph % (Auto) 21.1 L (25-47) % [place] % (Auto) 6.0 (1-9) % Eos % (Auto) 1.7 (0-6) % Baso % (Auto) 1.4 (0-2) % Absolute Neuts (auto) 6.0 (1.5-7.7) 10^3/ul Absolute Lymphs (auto) 1.8 (1.0-4.8) 10^3/ul Absolute Monos (auto) 0.5 (0-0.8) 10^3/ul Absolute Eos (auto) 0.1 (0-0.6) 10^3/ul Absolute Basos (auto) 0.1 (0-0.2) 10^3/ul Absolute Nucleated RBC 0 10^3/ul Nucleated RBC % 0 INR (Anticoag Therapy) (0.89-1.11) APTT (26.0-36.3) seconds Sodium 138 (133-145) mmol/L Potassium 3.7 (3.5-5.0) mmol/L Chloride 101 (101-111) mmol/L Carbon Dioxide 27 (22-32) mmol/L Anion Gap 10 (2-11) mmol/L BUN 9 (6-24) mg/dL Creatinine 0.61 L (0.67-1.17) mg/dL Est GFR ( Amer) 168.6 (>60) Est GFR (Non-Af Amer) 131.1 (>60) BUN/Creatinine Ratio 14.8 (8-20) Glucose 147 H (70-100) mg/dL Lactic Acid 1.6 (0.5-2.0) mmol/L Calcium 9.0 (8.6-10.3) mg/dL Magnesium 1.7 L (1.9-2.7) mg/dL Total Bilirubin 0.40 (0.2-1.0) mg/dL AST 13 (13-39) U/L ALT 10 (7-52) U/L Alkaline Phosphatase 141 H (34-104) U/L Troponin I 0.01 (<0.04) ng/mL B-Natriuretic Peptide ( - 100) pg/mL Total Protein 6.7 (6.4-8.9) g/dL Albumin 3.6 (3.2-5.2) g/dL Globulin 3.1 (2-4) g/dL Albumin/Globulin Ratio 1.2 (1-3) TSH 1.08 (0.34-5.60) mcIU/mL Urine Color Urine Appearance Urine pH (5-9) Ur Specific [place] (1.010-1.030) Urine Protein (Negative) Urine Ketones (Negative) Urine Blood (Negative) Urine Nitrate (Negative) Urine Bilirubin (Negative) Urine Urobilinogen (Negative) Ur Leukocyte Esterase (Negative) Urine Glucose (Negative) 10/04/16 10/04/16 10/04/16 Range/Units 07:26 07:26 08:30 WBC (3.5-10.8) 10^3/ul RBC (4.0-5.4) 10^6/ul Hgb (14.0-18.0) g/dl Hct (42-52) % MCV (80-94) fL MCH (27-31) pg MCHC (31-36) g/dl RDW (10.5-15) % Plt Count (150-450) 10^3/ul MPV (7.4-10.4) um3 Neut % (Auto) (38-83) % Lymph % (Auto) (25-47) % [place] % (Auto) (1-9) % Eos % (Auto) (0-6) % Baso % (Auto) (0-2) % Absolute Neuts (auto) (1.5-7.7) 10^3/ul Absolute Lymphs (auto) (1.0-4.8) 10^3/ul Absolute Monos (auto) (0-0.8) 10^3/ul Absolute Eos (auto) (0-0.6) 10^3/ul Absolute Basos (auto) (0-0.2) 10^3/ul Absolute Nucleated RBC 10^3/ul Nucleated RBC % INR (Anticoag Therapy) 0.91 (0.89-1.11) APTT 33.4 (26.0-36.3) seconds Sodium (133-145) mmol/L Potassium (3.5-5.0) mmol/L Chloride (101-111) mmol/L Carbon Dioxide (22-32) mmol/L Anion Gap (2-11) mmol/L BUN (6-24) mg/dL Creatinine (0.67-1.17) mg/dL Est GFR ( Amer) (>60) Est GFR (Non-Af Amer) (>60) BUN/Creatinine Ratio (8-20) Glucose (70-100) mg/dL Lactic Acid (0.5-2.0) mmol/L Calcium (8.6-10.3) mg/dL Magnesium (1.9-2.7) mg/dL Total Bilirubin (0.2-1.0) mg/dL AST (13-39) U/L ALT (7-52) U/L Alkaline Phosphatase (34-104) U/L Troponin I (<0.04) ng/mL B-Natriuretic Peptide 200 H ( - 100) pg/mL Total Protein (6.4-8.9) g/dL Albumin (3.2-5.2) g/dL Globulin (2-4) g/dL Albumin/Globulin Ratio (1-3) TSH (0.34-5.60) mcIU/mL Urine Color Straw Urine Appearance Clear Urine pH 5.0 (5-9) Ur Specific [place] 1.006 L (1.010-1.030) Urine Protein Negative (Negative) Urine Ketones Negative (Negative) Urine Blood Negative (Negative) Urine Nitrate Negative (Negative) Urine Bilirubin Negative (Negative) Urine Urobilinogen Negative (Negative) Ur Leukocyte Esterase Negative (Negative) Urine Glucose Negative (Negative) Result Diagrams: 10/04/16 07:26 10/04/16 07:26 Lab Statement: Any lab studies that have been ordered have been reviewed, and results considered in the medical decision making process. - Radiology CXR Xray Interpretation: Positive (See Comments) - INPRESSION: Mild R basilar infiltrate or a telectasis. Radiology Interpretation Completed By: Radiologist - EKG 1 EKG Rhythm: Atrial Fibrillation - RVR ST Segment: Non-Specific 2 Cardiac Rate: NL EKG Rhythm: Sinus Rhythm EKG Interpretation: LAD, old daniele RI Re-Evaluation - Re-Evaluation 1 Re-Evaluation Time: 09:11 Change: Improved Comment: Discussing lab and CXR results with pt. Pt states feeling better. HR is in 60s, still afib. Ordered repeat EKG. Discussed increasing Sotalol with pt until he sees roof bolter helper in two days. Pt voiced understanding. Course/Dx - Course Course Of Treatment: MDM: A 70 y/o M with PMHx: afeb presents with c/o of Afib onset 0300. Denies CP, SOB, dizziness. Recent surgery (inguinal stent) two days ago. Pt is not on blood thinners. EKG shows Afib with RVR and nonspecific ST changes. CXR shows mild right basilar infiltrate or a telectasis. Negative troponin. UA is negative with specific gravity of 1.006. Repeat EKG shows NSR, LAD, old daniele RI. Patient will be D/C home and increase his Sotalol to 120 mg q2d. F/u with cardiology in two days as sched. Pt is agreeable with this plan , voiced understanding. - Diagnoses Differential Diagnosis/HQI/PQRI: Positive: Hypokalemia, Other - atrial fibrillation, Provider Diagnoses: atrial fibrillation with RVR resolved Discharge - Discharge Plan Condition: Stable Disposition: HOME Patient Education Materials: Sotalol (By mouth), Atrial Fibrillation (ED) Referrals: Carolin Mendez ASSISTANT MEDIA PLANNER [Primary Care Provider] - Additional Instructions: As we discussed: Increase your Sotalol to 120 mg, take 2x a day. See your roof bolter helper on Wednesday as scheduled, bring your EKGs and discuss medication dosage The documentation as recorded by the Justen hernandez SooYoung accurately reflects the service I personally performed and the decisions made by me, Guillermo Mayes MD.
== END 2016-10-04 09:25 | disposition home or self-care (01) ==
LOC: ED 07:13
DX: I48.91 Unspecified atrial fibrillation (principal); I25.2 Old myocardial infarction
CPT/HCPCS: 36415; 71010; 80053; 81003; 83605; 83735; 83880; 84443; 84484; 85025; 85610; 85730; 93005; 96360; 96374; 99283

== ENCOUNTER 2016-11-20 05:41 | Emergency (ER) | payer MEDICARE, BC ==
[2016-11-20 06:19] LABS: Hematocrit 45 % (42-52); Hemoglobin 14.7 g/dl (14.0-18.0); Mean Corpuscular HGB Conc 33 g/dl (31-36); Mean Corpuscular Hemoglobin 29 pg (27-31); Mean Corpuscular Volume 88 fL (80-94); Mean Platelet Volume 8 um3 (7.4-10.4); Red Blood Count 5.08 10^6/ul (4.0-5.4); Red Cell Distribution Width 17 % (10.5-15); White Blood Count 6.2 10^3/ul (3.5-10.8)
[2016-11-20 06:31] LABS: Albumin 4.1 g/dL (3.2-5.2); BUN/Creatinine Ratio 19.3 (8-20); Calcium 9.4 mg/dL (8.6-10.3); EGFR African American 181.7 (>60); EGFR Non-African American 141.3 (>60); Globulin 2.6 g/dL (2-4); Magnesium 1.7 mg/dL (1.9-2.7); Potassium 4.3 mmol/L (3.5-5.0); Total Bilirubin 0.7 mg/dL (0.2-1.0); Total Protein 6.7 g/dL (6.4-8.9)
--- NOTE | 2016-11-20 06:50 | ED ---
jenny Mendoza Timothy, scribed for Deshawn Obrien MD on 11/20/16 at 0559 . HPI Cardiac - HPI Summary HPI Summary: Daryn Walden is a 71 yo male presenting to [facility] with "pounding and punching" in his gut, which he states are the same Sx he had when he was in Afib. He states he now has an empty feeling in his stomach. He states he went into Afib yesterday at 1600. He is on warfarin and sotalol, as well as aspirin. His MHx includes CHF, Afib, HLD, aortic valve "slushy". - History of Current Complaint Stated Complaint: POSS AFIB Time Seen by Provider: 11/20/16 05:59 Hx Obtained From: Patient Onset/Duration: Started Hours Ago, Still Present Time of Onset: 16:00 - 11/09/16 Timing: Constant Initial Severity: Moderate Current Severity: Moderate Pain Intensity: 0 Pain Scale Used: 0-10 Numeric Character: Pounding - "punching" Associated Signs and Symptoms: Positive: Palpitations - "pounding" - Allergy/Home Medications Allergies/Adverse Reactions: Allergies Allergy/AdvReac Type Severity Reaction Status Date / Time No Known Allergies Allergy Verified 10/02/16 09:01 PMH/Surg Hx/FS Hx/Imm Hx Endocrine/Hematology History: Denies: Hx Diabetes Cardiovascular History: Reports: Hx Atrial Fibrillation, Hx Congestive Heart Failure - Surgical History Surgery Procedure, Year, and Place: L1 SURGERY, INTESTINAL SURGERY, R Wrist Infectious Disease History: No Infectious Disease History: Denies: Traveled Outside the [place] in Last 30 Days - Family History Known Family History: Positive: None Negative: Cardiac Disease, Hypertension, Diabetes Family History: pt denies a significant PMHx - Social History Alcohol Use: None Hx Substance Use: No Substance Use Type: Reports: None Hx Tobacco Use: No Smoking Status (MU): Never Smoked Tobacco Review of Systems Constitutional: Negative Eyes: Negative ENT: Negative Cardiovascular: Negative Respiratory: Negative Gastrointestinal: Other - pounding/punching with empty feeling in gut Genitourinary: Negative Musculoskeletal: Negative Skin: Negative Neurological: Negative Psychological: Normal All Other Systems Reviewed And Are Negative: Yes Physical Exam Triage Information Reviewed: Yes Vital Signs On Initial Exam: Initial Vitals Temp Pulse Resp BP Pulse Ox 98.1 F 69 18 154/70 100 11/20/16 05:47 11/20/16 05:47 11/20/16 05:47 11/20/16 05:47 11/20/16 05:47 Vital Signs Reviewed: Yes Appearance: Positive: Well-Appearing, No Pain Distress Skin: Positive: Warm Head/Face: Positive: Normal Head/Face Inspection Eyes: Positive: [place] ENT: Positive: Hearing grossly normal Neck: Positive: Supple Respiratory/Lung Sounds: Positive: Clear to Auscultation, Breath Sounds Present Cardiovascular: Positive: IRR, Tachycardia Abdomen Description: Positive: Nontender, Soft Bowel Sounds: Positive: Present Musculoskeletal: Positive: Strength/ROM Intact Neurological: Positive: Sensory/Motor Intact, Normal Gait Diagnostics - Vital Signs Vital Signs Temp Pulse Resp BP Pulse Ox 11/20/16 05:47 98.1 F 69 18 154/70 100 - Laboratory Lab Results: Lab Results 11/20/16 11/20/16 11/20/16 Range/Units 05:55 05:55 05:55 WBC 6.2 (3.5-10.8) 10^3/ul RBC 5.08 (4.0-5.4) 10^6/ul Hgb 14.7 (14.0-18.0) g/dl Hct 45 (42-52) % MCV 88 (80-94) fL MCH 29 (27-31) pg MCHC 33 (31-36) g/dl RDW 17 H (10.5-15) % Plt Count 178 (150-450) 10^3/ul MPV 8 (7.4-10.4) um3 Neut % (Auto) 60.3 (38-83) % Lymph % (Auto) 30.2 (25-47) % [place] % (Auto) 7.3 (1-9) % Eos % (Auto) 0.8 (0-6) % Baso % (Auto) 1.4 (0-2) % Absolute Neuts (auto) 3.8 (1.5-7.7) 10^3/ul Absolute Lymphs (auto) 1.9 (1.0-4.8) 10^3/ul Absolute Monos (auto) 0.5 (0-0.8) 10^3/ul Absolute Eos (auto) 0 (0-0.6) 10^3/ul Absolute Basos (auto) 0.1 (0-0.2) 10^3/ul Absolute Nucleated RBC 0.01 10^3/ul Nucleated RBC % 0.1 Sodium 136 (133-145) mmol/L Potassium 4.3 (3.5-5.0) mmol/L Chloride 100 L (101-111) mmol/L Carbon Dioxide 26 (22-32) mmol/L Anion Gap 10 (2-11) mmol/L BUN 11 (6-24) mg/dL Creatinine 0.57 L (0.67-1.17) mg/dL Est GFR ( Amer) 181.7 (>60) Est GFR (Non-Af Amer) 141.3 (>60) BUN/Creatinine Ratio 19.3 (8-20) Glucose 121 H (70-100) mg/dL Lactic Acid 1.3 (0.5-2.0) mmol/L Calcium 9.4 (8.6-10.3) mg/dL Magnesium 1.7 L (1.9-2.7) mg/dL Total Bilirubin 0.70 (0.2-1.0) mg/dL AST 24 (13-39) U/L ALT 28 (7-52) U/L Alkaline Phosphatase 97 (34-104) U/L Troponin I 0.00 (<0.04) ng/mL Total Protein 6.7 (6.4-8.9) g/dL Albumin 4.1 (3.2-5.2) g/dL Globulin 2.6 (2-4) g/dL Albumin/Globulin Ratio 1.6 (1-3) TSH Pending Result Diagrams: 11/20/16 05:55 11/20/16 05:55 Lab Statement: Any lab studies that have been ordered have been reviewed, and results considered in the medical decision making process. - Radiology CXR Xray Interpretation: No Acute Changes - No acute cardiopulmonary disease Radiology Interpretation Completed By: ED Physician - EKG 0549 Cardiac Rate: NL - 67 BPM EKG Interpretation: Afib @ 67 BPM 0608 Cardiac Rate: NL - 63 BPM EKG Interpretation: NSR @ 63 BPM, normal EKG. Re-Evaluation - Re-Evaluation First Eval Re-Evaluation Time: 06:00 - pt converted spontaneously to nsr Change: Improved Disposition - Course Assessment/Plan: Daryn Walden is a 71 yo male presenting to [facility] with pounding in his gut, similar to Sx he had when he was in Afib. His first EKG revealed AFib. His second EKG was WNL. His CXR suggested no acute cardiopulmonary disease. After clinical examination and review of his EKG's and lab work, he will be signed out to Dr. Harley pending further evaluation and work up. - Differential Dx - Cardiopulmonary Differential Diagnoses - Cardiopulmonary: Atrial Fibrillation - Diagnoses Provider Diagnoses: Paroxysmal a-fib Discharge - Discharge Plan Condition: Improved Disposition: HOME Discharge Disposition Comment: signed out to Dr. Harley pending further evaluation Patient Education Materials: A-fib (Atrial Fibrillation) (ED) Referrals: Anurag SLAUGHTER,Jordan Nuñez [Medical Doctor] - 4 Days Carolin Mendez NP [Primary Care Provider] - 4 Days Additional Instructions: Please follow-up with your primary care physician and Dr. Mccarthy next week. The documentation as recorded by the jenny hernandez Timothy accurately reflects the service I personally performed and the decisions made by me, Deshawn Obrien MD.
[2016-11-20 07:08] LABS: TSH (Thyroid Stimulating Horm) 2.24 mcIU/mL (0.34-5.60)
--- NOTE | 2016-11-20 07:48 | RAD ---
HISTORY: Palpitation COMPARISONS: October 04, 2016 VIEWS: 2: Frontal dual-energy and lateral views of the chest. FINDINGS: CARDIOMEDIASTINAL SILHOUETTE: The cardiomediastinal silhouette is normal. MIGUE: The migue are normal. PLEURA: The costophrenic angles are sharp. No pleural abnormalities are noted. LUNG PARENCHYMA: There is hyperinflation with flattening of the diaphragm and expansion of the AP diameter of the chest. ABDOMEN: The upper abdomen is clear. There is no subphrenic gas. BONES AND SOFT TISSUES: The patient is status post spinal fusion. OTHER: None. IMPRESSION: HYPERINFLATION, CONSISTENT WITH COPD. NO ACTIVE CARDIOPULMONARY DISEASE.
[2016-11-20] MEDS ORDERED: Warfarin TAB(*) 5 MG PO ONE (08:44)
[2016-11-20] MEDS ORDERED: Magnesium Oxide TAB* 400 MG PO ONE (08:46)
[2016-11-20 09:38] VITALS: BP 110/52
--- NOTE | 2016-11-20 11:04 | ED ---
Ervin Mendoza Matthew, scribed for Irwin Harley MD on 11/20/16 at 0845 . Progress - Progress Note Progress Note: The patient is a sign out from Dr. Obrien. He is a 71 y/o male who presents to the ED for palpitations and SOB since 16:00 yesterday afternoon. Currently, the patient states that he is feeling better. VITAL SIGNS: Reviewed. GENERAL: Patient is a well developed and nourished elderly male who is lying comfortable in the stretcher. Patient is not in any acute respiratory distress. HEAD AND FACE: No signs of trauma. No ecchymosis, hematomas or skull depressions. No sinus tenderness. EYES: PERRLA, EOMI x 2, No injected conjunctiva, no nystagmus. EARS: Hearing grossly intact. Ear canals and tympanic membranes are within normal limits. MOUTH: Oropharynx within normal limits. NECK: Supple, trachea is midline, no adenopathy, no JVD, no carotid bruit, no c- spine tenderness, neck with full ROM. CHEST: Symmetric, no tenderness at palpation LUNGS: Clear to auscultation bilaterally. No wheezing or crackles. CVS: Irregular rate and rhythm, S1 and S2 present, no murmurs or gallops appreciated. ABDOMEN: Soft, non-tender. No signs of distention. No rebound no guarding, and no masses palpated. Bowel sounds are normal. EXTREMITIES: FROM in all major joints, no edema, no cyanosis or clubbing. NEURO: Alert and oriented x 3. No acute neurological deficits. Speech is normal and follows commands. SKIN: Dry and warm - Results/Orders Results/Orders: CXR IMPRESSION: HYPERINFLATION, CONSISTENT WITH COPD. NO ACTIVE CARDIOPULMONARY DISEASE. Re-Evaluation - Re-Evaluation First Eval Re-Evaluation Time: 06:00 - pt converted spontaneously to nsr Change: Improved Course/Dx - Course Course Of Treatment: Blood work WNL, INR is 1.53 taking Coumadin therefore the patient was given an additional dose of Coumadin. Chloride 100, creatinine of 0.57, glucose 121, magnesium 1.7.The patient was given magnesium PO. Initially shows AFib rate controlled. Second EKG shows sinus rhythm without ST elevations. The patient is on sotalol for rate control, Plavix and Coumadin. The patient at this time is asymptomatic and doesnt have any complaints. I discussed the case with Dr. Jordan Land a java j[employer] technical lead in [place] and he recommends no further intervention. The patient will be discharged home and Dr. Mccarthy will arrange for an office visit next week. At this point, the patient is A&Ox3 and hemodynamically stable. I did not repeat a second troponin, because he has no chest pain and never complained of chest pain. I discussed all the findings and test results with the patient. Patient was instructed to return to the emergency room immediately if any of the symptoms return or worsens. Plan of care was discussed with the patient and understands and agrees. All questions were answered at patient satisfaction. There were no further complaints or concerns. Lung exam before discharge: CTA B/L. Good air exchange. No wheezing or crackles heard. CVS: S1 and S2 present. No murmurs appreciated. Patient is alert and oriented x 3. Patient is hemodynamically stable. Patient will be discharged home with follow up PCP in the next 2-3 days - Diagnoses Provider Diagnoses: Paroxysmal a-fib - Provider Notifications Discussed Care Of Patient With: Dr. Mccarthy (Cardologist) at 08:32 -- Notified of patient's history and recommends no further intervention and to have the patient follow-up at his office next week. The documentation as recorded by the Ervin hernandez Matthew accurately reflects the service I personally performed and the decisions made by me, Irwin Harley MD.
== END 2016-11-20 09:38 | disposition home or self-care (01) ==
LOC: ED 05:41
DX: I48.0 Paroxysmal atrial fibrillation (principal)
CPT/HCPCS: 36415; 71020; 80053; 83605; 83735; 84443; 84484; 85025; 85610; 93005; 99284

== ENCOUNTER 2016-12-02 12:52 | Emergency (ER) | payer MEDICARE, BC ==
[2016-12-02 14:59] VITALS: BP 134/70
--- NOTE | 2016-12-02 15:06 | UC ---
Throat Pain/Nasal Zaheer HPI - HPI Summary HPI Summary: notice last night when he rolled over in bed that he was getting a spinning sensation, today the spinning sensation continues with head movement - History of Current Complaint Chief Complaint: UCGeneralIllness Stated Complaint: SINUS/EAR COMPLAINT Time Seen by Provider: 12/02/16 14:54 Hx Obtained From: Patient Onset/Duration: Sudden Onset, Lasting Days - 1, Still Present Severity: Mild Pain Intensity: 0 Pain Scale Used: 0-10 Numeric Cough: None Associated Signs & Symptoms: Positive: Negative - Allergies/Home Medications Allergies/Adverse Reactions: Allergies Allergy/AdvReac Type Severity Reaction Status Date / Time No Known Allergies Allergy Verified 10/02/16 09:01 Home Medications: Home Medications Pantoprazole TAB (NF) [Protonix TAB (NF)] 20 mg PO 12/02/16 [History] Warfarin TAB(*) [Coumadin TAB(*)] 5 mg PO DAILY 12/02/16 [History Confirmed ] PMH/Surg Hx/FS Hx/Imm Hx Previously Healthy: No Endocrine History Of: Denies: Diabetes Cardiovascular History Of: Reports: Cardiac Disorders - A.fib., Congestive Heart Failure, Atrial Fibrillation GI/ History Of: Reports: Ulcer - L foot, duodenal ulcer - Surgical History Surgical History: Yes Surgery Procedure, Year, and Place: L1 SURGERY 2017, INTESTINAL SURGERY, R Wrist - Family History Known Family History: Positive: None Negative: Cardiac Disease, Hypertension, Diabetes Family History: pt denies a significant PMHx - Social History Occupation: Disabled Lives: With Family Alcohol Use: None Substance Use Type: None Smoking Status (MU): Never Smoked Tobacco - Immunization History Most Recent Influenza Vaccination: 2016 Most Recent Pneumonia Vaccination: Pt states 8-9 years ago. Review of Systems Constitutional: Negative Skin: Negative Eyes: Negative ENT: Negative Respiratory: Negative Cardiovascular: Negative Gastrointestinal: Negative Genitourinary: Negative Motor: Negative Neurovascular: Negative Musculoskeletal: Negative Neurological: Negative Psychological: Negative All Other Systems Reviewed And Are Negative: Yes Physical Exam Triage Information Reviewed: Yes Appearance: Ill-Appearing - older than stated age, Pain Distress, Thin Vital Signs: Initial Vital Signs Temp 98.7 F 12/02/16 14:46 Pulse 60 12/02/16 14:46 Resp 18 12/02/16 14:46 BP 134/70 12/02/16 14:46 Pulse Ox 98 12/02/16 14:46 Vital Signs Reviewed: Yes Eye Exam: Normal Eyes: Positive: Conjunctiva Clear, Other: - perrla, eomi equal and intact, chronic irregular left pupil s/p eye surgery ENT Exam: Normal ENT: Positive: Normal ENT inspection, Hearing grossly normal, Pharynx normal, Nasal congestion, TMs normal. Negative: Nasal drainage, Tonsillar swelling, Tonsillar exudate, Trismus, Muffled/hoarse voice Dental Exam: Other - no teeth Neck exam: Normal Neck: Positive: Supple, Nontender, No Lymphadenopathy Respiratory Exam: Normal Respiratory: Positive: Chest non-tender, Lungs clear, Normal breath sounds, No respiratory distress, No accessory muscle use Cardiovascular Exam: Normal Cardiovascular: Positive: RRR, No Murmur, Pulses Normal, Brisk Capillary Refill Musculoskeletal Exam: Normal Musculoskeletal: Positive: Strength Intact, ROM Intact, No Edema Neurological Exam: Normal Neurological: Positive: Alert, Muscle Tone Normal Psychological Exam: Normal Psychological: Positive: Normal Response To Family, Age Appropriate Behavior Skin Exam: Normal Throat Pain/Nasal Course/Dx - Course Assessment/Plan: flonase, increase fluids, antivert folow with pcp 3 days - Differential Dx/Diagnosis Differential Diagnosis/HQI/PQRI: Pharyngitis, Sinusitis, URI, Other - BPV, Allergic Rhinnitis Provider Diagnoses: BPV, Allergic Rhinitis Discharge - Discharge Plan Condition: Stable Disposition: HOME Prescriptions: Fluticasone NASAL SPRAY 50MCG* [Flonase NASAL SPRAY 50MCG*] 2 spray BOTH NARES DAILY #1 btl Meclizine TAB* [Antivert 12.5 TAB*] 1 - 2 tab PO TID PRN #30 tab PRN Reason: Vertigo Patient Education Materials: Meclizine (By mouth), Fluticasone (Into the nose) , Benign Paroxysmal Positional Vertigo (ED) Referrals: Carolin Mendez WEED CUTTER [Primary Care Provider] - 3 Days
[2016-12-02] MEDS ORDERED: Meclizine TAB* 12.5 MG PO ONE (15:15)
== END 2016-12-02 15:35 | disposition home or self-care (01) ==
LOC: UCEAST 12:52
DX: H81.10 Benign paroxysmal vertigo, unspecified ear (principal); J30.9 Allergic rhinitis, unspecified; I48.91 Unspecified atrial fibrillation; Z79.01 Long term (current) use of anticoagulants; I50.9 Heart failure, unspecified
CPT/HCPCS: 99212; A9270-GY; G0463

== ENCOUNTER → 2017-01-06 13:54 | Emergency (ER) | payer MEDICARE, BC ==
[~2017-01-06 13:54] MED LIST: Morphine INJ* 4 MG/ML 1 ML SYRINGE IV ONE; Morphine INJ* 4 MG/ML 1 ML SYRINGE ONE; NS 0.9% 1000 ML* 1,000 ML IV SCH; Ondansetron INJ* 2 MG/ML VIAL IV ONE; Ondansetron INJ* 2 MG/ML VIAL ONE
[2017-01-06 18:15] LABS: Hematocrit 36 % (42-52); Mean Corpuscular HGB Conc 33 g/dl (31-36); Mean Corpuscular Hemoglobin 29 pg (27-31); Mean Corpuscular Volume 88 fL (80-94); Mean Platelet Volume 8 um3 (7.4-10.4); Red Blood Count 4.12 10^6/ul (4.0-5.4); Red Cell Distribution Width 16 % (10.5-15); White Blood Count 6.3 10^3/ul (3.5-10.8)
[2017-01-06 18:36] LABS: ALT 14 U/L (7-52); Albumin 3.8 g/dL (3.2-5.2); Alkaline Phosphatase 121 U/L (34-104); Blood Urea Nitrogen 13 mg/dL (6-24); C Reactive Protein 51.09 mg/L (< 5.00); CO2 Carbon Dioxide 31 mmol/L (22-32); Calcium 9.4 mg/dL (8.6-10.3); Chloride 96 mmol/L (101-111); EGFR African American 164.9 (>60); EGFR Non-African American 128.3 (>60); Glucose 99 mg/dL (70-100); Sodium 135 mmol/L (133-145); Total Protein 6.8 g/dL (6.4-8.9)
--- NOTE | 2017-01-06 18:47 | RAD ---
INDICATION: Left foot pain COMPARISON: None TECHNIQUE: AP, lateral, and oblique views were obtained. FINDINGS: The bony structures are very osteopenic. There are no acute bony findings. The articular relationships are maintained. There are vascular calcifications. IMPRESSION: NO ACUTE BONY CHANGE.
--- NOTE | 2017-01-06 20:07 | ED ---
jenny Mendoza Timothy, scribed for Deshawn Obrien MD on 01/06/17 at 1954 . Lower Extremity - HPI Summary HPI Summary: Daryn Walden is a 71 yo male presenting to [facility] with wound on the right foot which per triage is malodorous. Pt is a Pt of the wound clinic, is complaining of 6/10 pain, and is on oxycodone. Pt states pain increases with movement of the foot. Pt states there was odor in the foot as of yesterday, and was referred to [facility] by the pain clinic today. Pt has had recent surgery by Dr. Brown to revascularize the left foot. Pt also claims intermittent shooting pain at left toes. He has scheduled a consult 01/13/[address] Borrego to determine which left toes will be removed. His MHx includes Afib, HLD, CHF, "slushy" aortic valve, left foot ulcer, duodenal ulcer surgery , shingles. - History of Current Complaint Chief Complaint: EDExtremityLower Stated Complaint: WOUND CHECK POSSIBLE INFECTION Time Seen by Provider: 01/06/17 19:50 Hx Obtained From: Patient Mechanism Of Injury: Unknown Onset/Duration: Days Severity Initially: Moderate Severity Currently: Moderate Pain Intensity: 6 Pain Scale Used: 0-10 Numeric Timing: Constant Location: Is Discrete @ - RLE Associated Signs And Symptoms: Positive: Other - malodorous Aggravating Factor(s): Standing, Ambulation, Movement, Weight Bearing - Allergies/Home Medications Allergies/Adverse Reactions: Allergies Allergy/AdvReac Type Severity Reaction Status Date / Time No Known Allergies Allergy Verified 10/02/16 09:01 Home Medications: Home Medications Acetaminophen [Acetaminophen Extra Stren] 500 mg PO Q6HR PRN 01/06/17 [History Confirmed 01/06/17] Aspirin EC Low Dose* [Ecotrin EC Low Dose 81 MG*] 81 mg PO QAM 01/06/17 [ History Confirmed 01/06/17] Sotalol TAB* [Betapace 80 MG TAB*] 120 mg PO BID 01/06/17 [History Confirmed ] oxyCODONE TAB* [Roxycodone TAB 5 mg*] 5 mg PO Q8H PRN 01/06/17 [History Confirmed 01/06/17] PMH/Surg Hx/FS Hx/Imm Hx Endocrine/Hematology History: Denies: Hx Diabetes Cardiovascular History: Reports: Hx Atrial Fibrillation, Hx Congestive Heart Failure Denies: Other Cardiovascular Problems/Disorders GI History: Reports: Hx Ulcer - L foot, duodenal ulcer - Surgical History Surgery Procedure, Year, and Place: L1 SURGERY 2017, INTESTINAL SURGERY, R Wrist Infectious Disease History: No Infectious Disease History: Reports: Hx Shingles Denies: Hx of Known/Suspected MRSA, Traveled Outside the [place] in Last 30 Days - Family History Known Family History: Positive: None Negative: Cardiac Disease, Hypertension, Diabetes Family History: pt denies a significant PMHx - Social History Alcohol Use: None Hx Substance Use: No Substance Use Type: Reports: None Hx Tobacco Use: No Smoking Status (MU): Never Smoked Tobacco Review of Systems Constitutional: Negative Eyes: Negative ENT: Negative Cardiovascular: Negative Respiratory: Negative Gastrointestinal: Negative Genitourinary: Negative Musculoskeletal: Negative Positive: Other - malodorous wound right foot Neurological: Negative Psychological: Normal All Other Systems Reviewed And Are Negative: Yes Physical Exam Triage Information Reviewed: Yes Vital Signs On Initial Exam: Initial Vitals Temp Pulse Resp BP Pulse Ox 98.3 F 59 18 113/69 99 01/06/17 14:00 01/06/17 14:00 01/06/17 14:00 01/06/17 14:00 01/06/17 14:00 Vital Signs Reviewed: Yes Appearance: Positive: Well-Appearing, No Pain Distress Skin: Positive: Warm, Other - area of ulceration with distal necrotic area, non draining, non malodorous Head/Face: Positive: Normal Head/Face Inspection ENT: Positive: Hearing grossly normal Neck: Positive: Supple Respiratory/Lung Sounds: Positive: Breath Sounds Present Cardiovascular: Positive: RRR Abdomen Description: Positive: Nontender, Soft Musculoskeletal: Positive: Other - ulceration distal lt foot toes with necrotic black tips Psychiatric: Positive: Affect/Mood Appropriate - Олег Coma Scale Coma Scale Total: 15 Diagnostics - Vital Signs Vital Signs Temp Pulse Resp BP Pulse Ox 01/06/17 18:27 16 01/06/17 17:20 97.9 F 64 15 137/69 100 01/06/17 15:20 60 18 113/50 100 01/06/17 14:00 98.3 F 59 18 113/69 99 - Laboratory Lab Results: Lab Results 01/06/17 01/06/17 01/06/17 Range/Units 18:00 18:00 18:00 WBC 6.3 (3.5-10.8) 10^3/ul RBC 4.12 (4.0-5.4) 10^6/ul Hgb 12.0 L (14.0-18.0) g/dl Hct 36 L (42-52) % MCV 88 (80-94) fL MCH 29 (27-31) pg MCHC 33 (31-36) g/dl RDW 16 H (10.5-15) % Plt Count 280 (150-450) 10^3/ul MPV 8 (7.4-10.4) um3 Neut % (Auto) 62.6 (38-83) % Lymph % (Auto) 27.9 (25-47) % Ashley % (Auto) 7.5 (1-9) % Eos % (Auto) 0.8 (0-6) % Baso % (Auto) 1.2 (0-2) % Absolute Neuts (auto) 4.0 (1.5-7.7) 10^3/ul Absolute Lymphs (auto) 1.8 (1.0-4.8) 10^3/ul Absolute Monos (auto) 0.5 (0-0.8) 10^3/ul Absolute Eos (auto) 0 (0-0.6) 10^3/ul Absolute Basos (auto) 0.1 (0-0.2) 10^3/ul Absolute Nucleated RBC 0 10^3/ul Nucleated RBC % 0.1 INR (Anticoag Therapy) 1.96 H (0.89-1.11) APTT 40.5 H (26.0-36.3) seconds Sodium 135 (133-145) mmol/L Potassium TNP Chloride 96 L (101-111) mmol/L Carbon Dioxide 31 (22-32) mmol/L Anion Gap TNP BUN 13 (6-24) mg/dL Creatinine 0.62 L (0.67-1.17) mg/dL Est GFR ( Amer) 164.9 (>60) Est GFR (Non-Af Amer) 128.3 (>60) BUN/Creatinine Ratio 21.0 H (8-20) Glucose 99 (70-100) mg/dL Lactic Acid (0.5-2.0) mmol/L Calcium 9.4 (8.6-10.3) mg/dL Total Bilirubin 0.40 (0.2-1.0) mg/dL AST TNP ALT 14 (7-52) U/L Alkaline Phosphatase 121 H (34-104) U/L C-Reactive Protein 51.09 H (< 5.00) mg/L Total Protein 6.8 (6.4-8.9) g/dL Albumin 3.8 (3.2-5.2) g/dL Globulin 3.0 (2-4) g/dL Albumin/Globulin Ratio 1.3 (1-3) / Range/Units 18:00 WBC (3.5-10.8) 10^3/ul RBC (4.0-5.4) 10^6/ul Hgb (14.0-18.0) g/dl Hct (42-52) % MCV (80-94) fL MCH (27-31) pg MCHC (31-36) g/dl RDW (10.5-15) % Plt Count (150-450) 10^3/ul MPV (7.4-10.4) um3 Neut % (Auto) (38-83) % Lymph % (Auto) (25-47) % Ashley % (Auto) (1-9) % Eos % (Auto) (0-6) % Baso % (Auto) (0-2) % Absolute Neuts (auto) (1.5-7.7) 10^3/ul Absolute Lymphs (auto) (1.0-4.8) 10^3/ul Absolute Monos (auto) (0-0.8) 10^3/ul Absolute Eos (auto) (0-0.6) 10^3/ul Absolute Basos (auto) (0-0.2) 10^3/ul Absolute Nucleated RBC 10^3/ul Nucleated RBC % INR (Anticoag Therapy) (0.89-1.11) APTT (26.0-36.3) seconds Sodium (133-145) mmol/L Potassium Chloride (101-111) mmol/L Carbon Dioxide (22-32) mmol/L Anion Gap BUN (6-24) mg/dL Creatinine (0.67-1.17) mg/dL Est GFR ( Amer) (>60) Est GFR (Non-Af Amer) (>60) BUN/Creatinine Ratio (8-20) Glucose (70-100) mg/dL Lactic Acid 0.9 (0.5-2.0) mmol/L Calcium (8.6-10.3) mg/dL Total Bilirubin (0.2-1.0) mg/dL AST ALT (7-52) U/L Alkaline Phosphatase (34-104) U/L C-Reactive Protein (< 5.00) mg/L Total Protein (6.4-8.9) g/dL Albumin (3.2-5.2) g/dL Globulin (2-4) g/dL Albumin/Globulin Ratio (1-3) Result Diagrams: 01/06/17 18:00 01/06/17 18:00 Lab Statement: Any lab studies that have been ordered have been reviewed, and results considered in the medical decision making process. - Radiology L foot Xray Interpretation: No Acute Changes - IMPRESSION: NO ACUTE BONY CHANGE. Radiology Interpretation Completed By: Radiologist Re-Evaluation - Re-Evaluation First Eval Re-Evaluation Time: 20:02 Change: Unchanged Comment: Discussed lab and imaging studies with Pt, he is agreeable to be discharged home. Will follow with md tomorrow Lower Extremity Course/Dx - Course Assessment/Plan: Daryn Walden is a 71 yo male presenting to [facility] with a malodorous wound on his right foot as of yesterday, referred to [facility] by the wound clinic today. In the ED course he received zofran for nausea control, morphine for pain management, and IV fluids. His L foot XR suggests no acute bony change. After clinical examination and review of his lab and imaging studies he will be discharged home with left foot ulcer with appropriate instructions. - Diagnoses Provider Diagnoses: Foot ulcer, left Discharge - Discharge Plan Condition: Stable Disposition: HOME Patient Education Materials: Diabetic Foot Ulcers (ED) Referrals: Rick Ngo MD [Primary Care Provider] - 2 Days [facility] [Outside] - 2 Days Additional Instructions: Please follow up with your primary care physician and the wound clinic regarding your visit to the emergency department today. Return to the emergency department with any new or recurring symptoms. The documentation as recorded by the scribe, van Tio,Marco A accurately reflects the service I personally performed and the decisions made by me, Deshawn Obrien MD.
[2017-01-06 20:25] VITALS: BP 126/47
== END | disposition home or self-care (01) ==
LOC: ED 13:54
DX: L97.529 Non-pressure chronic ulcer of other part of left foot with unspecified severity (principal); Z79.82 Long term (current) use of aspirin; I48.91 Unspecified atrial fibrillation; I50.9 Heart failure, unspecified; E78.5 Hyperlipidemia, unspecified
CPT/HCPCS: 36415; 80053; 83605; 85025; 85610; 85730; 86140; 87040; 96374; 96375; 99283; J2270; J2405

== ENCOUNTER → 2017-01-29 13:30 | Day surgery (SDC) | payer MEDICARE, BC ==
--- NOTE | 2017-01-20 16:23 | HP ---
CC: Dr. Jordan Land MD, at [facility] * PREOPERATIVE HISTORY AND PHYSICAL: DATE OF ADMISSION: 01/19/17 This patient is scheduled for same-day surgery admission by Dr. Pineda on Wednesday , 01/29/17. ATTENDING SURGEON: Mariah Pineda MD (dictated by Vania Russell NP). CHIEF COMPLAINT: Osteomyelitis, second and third toes, left foot. HISTORY OF PRESENT ILLNESS: The patient is a 71-year-old male well known to Dr. Pineda from the [facility] where he has been treated for chronic ulcers of both feet. Currently, he has multiple nonhealing ulcers of the left foot with an MRI revealing osteomyelitis in the second and third toes. The patient has rest pain, left foot, and is also experiencing increasing pain in the right foot. He has undergone multiple interventional radiologic revascularizations by Dr. Piña with the last one on 12/31/16. Dr. Pineda has recommended amputation of the second and third toes of the left foot and has described rationale for the procedure, the typical same-day surgery, the relevant risks and benefits, and he will be followed postoperatively in the wound clinic. The patient has had a chance to ask questions and stated that he understands the information and is satisfied with the answers given to his questions. He will sign surgical consent on the day of surgery. PAST MEDICAL HISTORY: Significant for atherosclerosis of both lower extremities with chronic ulcers of both feet; paroxysmal atrial fibrillation; pernicious anemia; GERD. PAST SURGICAL HISTORY: Multiple procedures by Dr. Piña for revascularization of the left lower extremity with the most recent being 12/31/16; back surgery for fracture of L1 by Dr. Lim 08/13/16 and the patient states that he has two rods and six screws; the patient sustained the fracture when he fell; right wrist surgery 2010 and abdominal surgery for peptic ulcer 1990. MEDICATIONS: 1. Cyanocobalamin 1000 mcg/mL, 1 mL intramuscular every 4 weeks. 2. Aspirin 81 mg p.o. daily and the patient will continue this in the preoperative period. 3. Docusate 100 mg 2 capsules at bedtime. 4. Gabapentin 200 mg b.i.d. 7:30 a.m. and 7:30 p.m. 5. Famotidine 20 mg p.o. b.i.d. 6. Oxycodone 5 mg p.o. every 8 hours p.r.n. 7. Plavix 75 mg daily and he will take the last dose preoperatively on and Dr. Piña would like to have the patient resume the Plavix as soon as possible postoperatively. 8. Magnesium oxide 400 mg daily. 9. Multivitamin daily. 10. Sotalol 120 mg p.o. b.i.d. 11. Iron 325 mg p.o. b.i.d. 12. Atorvastatin 20 mg p.o. daily at bedtime. 13. Protonix 20 mg p.o. daily. 14. Coumadin 5 mg p.o. daily or take as directed by results of INR; the patient will take the last dose preoperatively on 01/23/17. 15. Bactrim DS 800/160 mg p.o. b.i.d. and the patient will continue this up until the time of surgery. 16. Tylenol 325 mg 2 tablets every 4 hours p.r.n. pain. 17. Flonase nasal spray one spray each nostril b.i.d. p.r.n. 18. Calcium plus vitamin D3 p.o. daily. 18. MiraLAX 17 g daily. ALLERGIES: No known drug allergies. FAMILY HISTORY: Mother at age 86 with type 2 diabetes and heart disease. No known anesthesia reactions, bleeding tendencies or clotting disorders. SOCIAL HISTORY: He is , but his accompanied him to the visit today and is supportive and assisting him with current care. He has never been a smoker. He denies the use of alcohol or other substances. REVIEW OF SYSTEMS: He is followed for primary care by Dr. Ngo; Dr. Land from [facility] is his product specialist; he is followed by Dr. Piña from interventional radiology and is followed at the [facility]. Constitutional: No recent change in his weight. No recent viral illnesses. HEENT: Denies any complaints. Cardiovascular: He has history of paroxysmal atrial fibrillation and is currently on Coumadin; he denies any current chest pain, pressure, or palpitations. He denies any history of deep vein thrombosis or pulmonary embolism. Respiratory: Denies any shortness of breath, denies any chronic cough, denies any previous anesthesia complications. Gastrointestinal: Denies any nausea, vomiting, or diarrhea. He takes stool softeners and laxatives for prevention of constipation while he is on opioids. Genitourinary: Denies any dysuria. He denies any current bleeding tendencies, but does bruise easily while he is on Coumadin, Plavix, and baby aspirin. He states that he received a blood transfusion at the time of his peptic ulcer surgery. LABORATORY DATA: Recent labs values reveal hemoglobin 12.5, and platelets 269, 000. INR 2.93 on 01/11/17. Electrolytes within normal limits on 01/11/17. He has been in the emergency room in November 2016 and an EKG was done at that time that was consistent with atrial fibrillation. He denies any history of myocardial infarction. PHYSICAL EXAMINATION GENERAL SURVEY: The patient is a 71-year-old male in no acute distress; he is frail appearing. VITAL SIGNS: Height 69 inches, weight 120 pounds. Body mass index 17.7. Blood pressure 120/58, pulse 72 and regular, respiratory rate 16, temperature 98.5 tympanic. SKIN: Warm, dry, intact other than open ulcers on both feet; he just had his dressings changed this morning at the wound clinic, so the dressings were not taken down in our office. HEENT: Benign. He wears bilateral hearing aids. NECK: Supple. No cervical lymphadenopathy. BACK: Well healed surgical scar. Nontender. No CVA tenderness. LUNGS: Breath sounds bilaterally clear and equal. HEART: Regular rate and rhythm. No murmurs or rubs appreciated. ABDOMEN: Active bowel sounds. Soft and nondistended. Nontender throughout. GENITALIA: Deferred. RECTAL: Deferred. EXTREMITIES: Moves all four extremities. Feet are dressed per the wound clinic today. NEUROLOGIC: Alert and oriented x3. The patient transfers with one assist from wheelchair to exam table, but gait is not steady. IMPRESSION: 1. Osteomyelitis, left second and third toes. 2. Atherosclerosis of the left lower extremity. 3. Paroxysmal atrial fibrillation. PLAN: Same-day surgery admission to Dr. Pineda's service on 01/29/17, for amputation of second and third toes left foot; the patient will take his last dose of Plavix and Coumadin on 01/23/17 in preparation for surgery and he will continue his baby aspirin in the perioperative period. VANIA RUSSELL, COUPON AND BOND COLLECTION CLERK [id number]/[facility] #: [id number] [facility]ITAL[facility]i
[~2017-01-29 13:30] MED LIST changes: +Buffered Lidocaine 0.9% SYRIN* 5 ML/SYR SYRINGE INTRADERM ONE; +Famotidine IV* 10 MG/ML 2 ML (20 mg) IV ONE; +Famotidine IV* 10 MG/ML 2 ML (20 mg) ONE; +KETAMINE HCL* 50 MG/ML 10 ML VIAL ONE; +Lidocaine 2% EPI 1:200000 MPF* 20 ML VIAL ONE; +Lidocaine 2% PF * 5 ML VIAL ONE; +Metoprolol Tartrate IV* 1 MG/ML 5 ML VIAL ONE; +Midazolam* 1 MG/ML 5 ML VIAL (5 MG) ONE; +Morphine INJ* 2 MG/ML 1 ML SYRINGE IV PRN; -Morphine INJ* 4 MG/ML 1 ML SYRINGE IV ONE; -Morphine INJ* 4 MG/ML 1 ML SYRINGE ONE; -NS 0.9% 1000 ML* 1,000 ML IV SCH; -Ondansetron INJ* 2 MG/ML VIAL IV ONE; -Ondansetron INJ* 2 MG/ML VIAL ONE; +PROCHLORPERAZINE INJ 5 MG/ML 2 ML VIAL IV PRN; +Propofol* 10 MG/ML 20 ML BTL IV PUSH ONE; +ROPIVACAINE 5 MG/ML 30 ML BTL (0.5%) ONE; +ceFAZolin 2 GM PREMIX(*) 2 GM/50 ML BAG IVPB ONE; +fentaNYL* 50 MCG/ML 2 ML VIAL (100 MCG VIAL) IV PRN; +fentaNYL* 50 MCG/ML 2 ML VIAL (100 MCG VIAL) ONE; +oxyCODONE/Acetamin 5/325 MG* TAB ONE
--- NOTE | 2017-01-29 16:16 | SURGPN ---
Brief Operative Note - Surgery Procedures: 01/29/17 Op Note Pre-op dx: osteomyelitis of left 2nd and 3rd toes Post-op dx: same Procedure: left 2nd and 3rd toe amputation Surgeon: Edwin Asst: none Anesth: regional EBL: 20 cc Complications: none SCD to right leg Pt. tolerated procedure well and was transferred to in a stable condition.
[2017-01-29] MEDS: oxyCODONE/Acetamin 5/325 MG* TAB PO PRN ×2 (16:38→16:39)
[2017-01-29 16:43] VITALS: BP 156/69
--- NOTE | 2017-01-30 13:51 | OP ---
CC: Dr. Rick Ngo; Caleb Piña MD * DATE OF OPERATION: 01/29/17 - [facility] DATE OF : 47 SURGEON: Mariah Pineda MD DIRECTOR TELEVISION NEWS: There was no teacher's assistant for this case. ANESTHESIOLOGIST: Deshawn Luna MD PRE-OP DIAGNOSIS: Osteomyelitis of the left second and third toes. POST-OP DIAGNOSIS: Osteomyelitis of the left second and third toes. OPERATIVE PROCEDURE: Amputation of the left second and third toes. INDICATIONS: Mr. Walden is a 71-year-old male with peripheral vascular disease and infected toes of the left leg, such that the second and third toes in addition to open wounds have osteomyelitis. This has prompted plan for surgical intervention for amputation. DESCRIPTION OF PROCEDURE: He was prepared for the surgery and was brought to the operating room. He was given IV sedation and regional anesthesia, and the left foot was prepped and draped in the usual sterile fashion. After ascertaining that anesthesia was adequate, a racquet handle incision was made around the two affected toes and subcutaneous tissues was divided with electrocautery down to the level of the shaft of the metatarsal head. This was then cleared using electrocautery, both for the second and the third metatarsal head and then the bone cutter was used to amputate just proximal to the metatarsal head. Electrocautery was used to release the last attachments of the toes to the bone and the specimen was handed off. A piece of the distal metatarsal head was sent for culture and the rongeur was used to take some cuttings from the proximal metatarsal bone of the second and third toes, all of these were sent for a culture. Hemostasis was assured with electrocautery and then closure was accomplished. This was done with 2-0 Polysorb in the subcutaneous layer and the skin was closed with interrupted mattress and simple stitches. Xeroform and then a dry sterile dressing was applied. All sponge and instrument counts were correct. The patient tolerated the procedure well and was transferred to Recovery in the stable condition. [id number]/[facility] #: [id number] [facility]
== END | disposition home or self-care (01) ==
LOC: OR 13:30
PROVIDERS: ATTEND Surgery
DX: M86.8X7 Other osteomyelitis, ankle and foot (principal); L97.529 Non-pressure chronic ulcer of other part of left foot with unspecified severity; I99.8 Other disorder of circulatory system; I48.0 Paroxysmal atrial fibrillation; I70.202 Unspecified atherosclerosis of native arteries of extremities, left leg; D51.0 Vitamin B12 deficiency anemia due to intrinsic factor deficiency; K21.9 Gastro-esophageal reflux disease without esophagitis; Z79.82 Long term (current) use of aspirin; Z79.01 Long term (current) use of anticoagulants; Z87.891 Personal history of nicotine dependence; I25.10 Atherosclerotic heart disease of native coronary artery without angina pectoris; J44.9 Chronic obstructive pulmonary disease, unspecified
CPT/HCPCS: 36415; 85610; 87070; 87073; 87077; 87186; 87205; 87640; 87641; 88305; 88311; A9270-GY; J0690; J2250; J2704; J2795; J3010

== ENCOUNTER 2017-03-11 10:31 | Observation (INO) | payer MEDICARE, BC ==
[2017-03-11] MEDS ORDERED: LORazepam TAB(*) 1 MG ONE (11:41)
[2017-03-11] MEDS ORDERED: Iohexol 350 (CONTRAST) 200 ML MDV IV ONE (12:35)
[2017-03-11] MEDS ORDERED: Heparin 2 UNITS/ML IVPREMIX* 2,000 ML IV ONE (12:35)
[2017-03-11] MEDS ORDERED: Lidocaine 1% INJ* 10 MG/ML 30 ML SDV ONE (12:35)
[2017-03-11] MEDS ORDERED: Flumazenil* 0.1 MG/ML 5 ML MDV ONE (13:09)
[2017-03-11] MEDS ORDERED: Midazolam* 1 MG/ML 5 ML VIAL (5 MG) ONE (13:09)
[2017-03-11] MEDS ORDERED: Naloxone* 0.4 MG/ML 1 ML VIAL ONE (13:09)
[2017-03-11] MEDS ORDERED: fentaNYL* 50 MCG/ML 2 ML VIAL (100 MCG VIAL) ONE ×3 (13:09→16:21)
[2017-03-11] MEDS ORDERED: nitroGLYCERIN DRIP* 250 ML ONE (13:10)
[2017-03-11] MEDS ORDERED: Heparin(*) 1000 UNIT/ML 10 ML VIAL CATH LAB IV ONE (14:05)
[2017-03-11] MEDS ORDERED: Ondansetron INJ* 2 MG/ML VIAL ONE (17:17)
[2017-03-11] MEDS: NS 0.9% 1000 ML* 1,000 ML IV SCH (18:00)
[2017-03-11] MEDS ORDERED: Ondansetron INJ* 2 MG/ML VIAL IV PRN (18:47)
[2017-03-11] MEDS ORDERED: Acetaminophen TAB* 325 MG PO PRN (18:47)
[2017-03-11] MEDS ORDERED: oxyCODONE TAB* 5 MG TAB PO PRN (18:50)
[2017-03-11] MEDS ORDERED: PROCHLORPERAZINE INJ 5 MG/ML 2 ML VIAL IV ONE (19:00)
[2017-03-11 19:33] LABS: Hematocrit 30 % (42-52); Hemoglobin 9.8 g/dl (14.0-18.0)
--- NOTE | 2017-03-11 20:40 | PN ---
Progress Note - Progress Note Date of Service: 03/11/17 SOAP: Subjective: Patient seen & examined at the bedside. Sleepy, but arousable. Pain at right groin and back. Denies right leg or foot pain. Nausea resolved. Objective: Selected Entries 03/11/17 03/11/17 19:30 19:36 Temperature 97.1 F Temperature Temporal Artery Source Scan Pulse Rate 70 Respiratory 13 Rate Blood Pressure 94/50 (mmHg) Blood Pressure 64 Mean O2 Sat by Pulse 100 Oximetry Patient on Room No Air Mild distress- mostly restless and does not want to lay on his back. AAO x 3 Right groin with foam tape pressure dressing Soft groin, but tender to palpation 1+ pulse at right popliteal artery Faint, but palpable right DPA pulse Right foot is warm to touch Sensation intact to light touch Right foot motor function grossly intact Assessment: 71 YOM s/p right common femoral arteriotomy, RLE arteriogram with revascularization and balloon angioplasty of the right peroneal, ZACH, DPA and superior portion of the right "pedal loop". Plan: 1. Percutaneous closure device was unsuccessful, therefore strict bedrest with right leg straight until 2300 hours. 2. Groin, pulse and vitals checks as ordered. 3. Hold Coumadin and Plavix tonight. Resume 03/12/17.
[2017-03-11] MEDS: Sotalol TAB* 80 MG PO SCH (20:50)
[2017-03-11] MEDS: Gabapentin CAP(*) 100 MG PO SCH (20:52)
[2017-03-11] MEDS: Sulfamethox/Trimethoprim DS 800/160* TAB PO SCH (20:52)
[2017-03-11] MEDS: Famotidine TAB* 20 MG PO SCH (20:52)
[2017-03-11] MEDS: Ferrous Sulfate TAB* 325 MG PO SCH (20:52)
[2017-03-11] MEDS ORDERED: Atorvastatin* 20 MG TAB PO SCH (21:00)
[2017-03-11] MEDS ORDERED: Calcium Carbonate CHEW TAB* 500 MG (TUMS) PO PRN (21:55)
--- NOTE | 2017-03-12 02:01 | HP ---
ATTENDING PHYSICIAN ADDENDUM NOW INCLUDED ON THIS REPORT CC: Dr. Ngo; Dr. Piña * HISTORY AND PHYSICAL: DATE OF ADMISSION: 03/11/17 PRIMARY CARE PROVIDER: Dr. Ngo. ATTENDING PHYSICIAN WHILE IN THE HOSPITAL: Anabell Harris MD * (report dictated by Ross Sierra NP) CHIEF COMPLAINT: Right foot pain. HISTORY OF PRESENT ILLNESS: I refer you to Dr. Piña's preop H and P for further details. In short, Mr. Walden is a 71-year-old male patient with extensive peripheral vascular disease coming into our interventional radiology services today for an angioplasty of the right lower extremity. He underwent the procedure under the care of Dr. Piña today, and I was asked by the hospitalist service to admit overnight to monitor for bleeding as there was an unsuccessful attempt to the closure device used. I refer you to Dr. Piña's op report for details, but essentially the patient was evaluated in the postoperative setting on the short stay unit. He says he is feeling well. He has no pain. He denies having any chest or any shortness of breath, denies feeling lightheaded or dizzy. Says he is not having any abdominal or back pain. He only complains of feeling nauseous. He says he is almost ready to eat. He denies having any vomiting and he says that he does not have any palpitations as well. He does carry a history of AFib, peripheral vascular disease, osteomyelitis and GERD. Because of his medical complexity, we were asked to evaluate for admission. PAST MEDICAL HISTORY: Significant for: 1. GERD. 2. AFib. 3. Peripheral vascular disease. 4. Osteomyelitis. PAST SURGICAL HISTORY: 1. He has had a left lower extremity angioplasty x2 with Dr. Piña. 2. He has had a right lower extremity angioplasty done today. 3. He has had a second, third, left toe amputation. 4. He has had lumbar spine surgery. 5. He has had an abdominal surgery for peptic ulcer. HOME MEDICATIONS: Include: 1. Oxycodone 5 mg every 8 hours as needed. 2. Coumadin 5 mg daily. 3. Protonix 20 mg p.o. daily. 4. Sotalol 120 mg p.o. b.i.d. 5. Senokot 1 tablet p.o. daily. 6. Multivitamin 1 tablet daily. 7. Mag ox daily. 8. Gabapentin 200 mg p.o. b.i.d. 9. Flonase 50 mcg nasally b.i.d. as needed. 10. Ferrous sulphate 325 mg p.o. b.i.d. 11. Plavix 75 mg p.o. daily. 12. Calcium carbonate 1 tablet p.o. q. a.m. 13. Lipitor 20 mg p.o. at bedtime. 14. Aspirin 81 mg daily. 15. Tylenol 650 mg every 4 hours as needed. 16. B12 injection 1000 mcg IM monthly. 17. MiraLAX 17 g p.o. daily. 18. Colace 200 mg p.o. q. p.m. 19. There is a question if he is on Bactrim. We were trying to clarify this with the patient. ALLERGIES TO MEDICATIONS: Include no known drug allergies. FAMILY HISTORY: His mother had a history of CVA. Father's history, it was attempted, but is unknown by the patient. SOCIAL HISTORY: He does not smoke. He does not drink. His surrogate decision maker is his daughter. REVIEW OF SYSTEMS: There is no documented fever. He denied having any significant weight change. He denies any having double vision. There was no ear discharge. He denies having any rhinorrhea. No sore throat. No thyroid enlargement. He denies having any chest pain. There was no orthopnea. No nocturnal dyspnea. There was again no abdominal pain. There was nausea, but no vomiting here. No dysuria. No frequency. No loss of consciousness. No pruritus. No skin ulceration. Review of 14 systems was completed, all others negative. PHYSICAL EXAMINATION GENERAL: At this time, Mr. Walden is a 71-year-old male patient. He is sitting in the postoperative bed. He does not appear to be in any acute distress. He is awake and he is alert. He is oriented x3. VITAL SIGNS: Blood pressure 93/57, pulse 74, respirations 18, O2 sat 100%, temperature 97.9. HEENT: Head is atraumatic. Eyes: Sclerae are anicteric and not pale. Throat : Oral mucosa appears to be moist. No oropharyngeal erythema. NECK: Supple. LUNGS: Clear to auscultation bilaterally. No wheezes, rales or rhonchi. HEART: Sounds S1 and S2. He appears to have a regular rate and rhythm. No murmurs, rubs or gallops. ABDOMEN: Soft, flat, nontender. Bowel sounds are present. EXTREMITIES: Pulses were 2+. He is not moving the lower extremities generally due to the postop instructions. He has 5/5 strength in upper extremities dorsally and plantar flexor 5/5 strength. NEUROLOGIC: He is awake. He is alert. He is oriented x3. Tongue is midline. Skin Peeling Machine Operator were equal. He had no gross focal obvious deficits. SKIN: His skin was grossly intact. LABORATORY DATA/DIAGNOSTIC STUDIES: Revealed a WBC of 5.1, RBC of 3.58, hemoglobin 10.8, hematocrit 32, platelet count of 155. The coags revealed an INR of 2.96. Sodium was 129, potassium 4.7, chloride 94, BUN 16, creatinine of 0.55. AST 18, ALT 12. Old medical records reviewed. ASSESSMENT AND PLAN: Mr. Walden is an 71-year-old male patient coming into our interventional services today for right lower extremity angioplasty. We were asked to evaluate for admission. He will be admitted under observation status for: 1. Status post right lower extremity angioplasty. I will defer the management of this to Dr. Piña. 2. History of gastroesophageal reflux disease, continue PPI therapy. 3. Atrial fibrillation, we will continue his sotalol. I am holding his warfarin tonight. We will repeat his INR in the morning. 4. History of peripheral vascular disease. I did touch base with Dr. Piña. At this time, we will go ahead and hold his Plavix and his statins and aspirin for now. We can always give this tomorrow morning prior to discharge. We were holding it for tonight because his ACT was elevated during the case. In addition to this because of no closure device, we would like to hold it for tonight and we will continue with statin. 5. His osteomyelitis, he is still on Bactrim. We will continue this. 6. DVT prophylaxis. His INR was 2.96 and he is on Coumadin so I am going to hold off on any anticoagulation at this point. I will order SCDs for the time being. 7. Activities. At this point is going to per post angioplasty protocol. 8. Fluids, electrolytes, nutrition. He can have a heart healthy diet. TIME SPENT: Time spent on the admission was 60 minutes, greater than half the time was spent [id number] with the patient obtaining my history and physical, the other time was spent going over the plan of care with the patient and implementing my plan of care I did discuss the plan of care with my attending, Dr. Harris, she is in agreement. ROSS SIERRA NP ADDENDUM: Mr. Walden is a 71-year-old male with history of severe peripheral vascular disease, who is status post angioplasty on the right leg today by Dr. Piña. He is on Coumadin and Plavix at home. Unfortunately, Dr. Piña was not able to be safely placed a closure device and recommended for the patient to stay for overnight observation and neurovascular check on the extremity involved. For further details of the patient's presentation and plan, please see history and physical dictated by Donell Sierra on 03/10/17 with which I agree. ANABELL HARRIS MD [id number]/CPS #: [id number]/CPS #: [id number] DARNELL
--- NOTE | 2017-03-12 02:01 | HP ---
HISTORY AND PHYSICAL: * DATE OF ADMISSION: ADDENDUM: Mr. Walden is a 71-year-old male with history of severe peripheral vascular disease, who is status post angioplasty on the right leg today by Dr. Piña. He is on Coumadin and Plavix at home. Unfortunately, Dr. Piña was not able to be safely placed a closure device and recommended for the patient to stay for overnight observation and neurovascular check on the extremity involved. For further details of the patient's presentation and plan, please see history and physical dictated by Donell Sierra on 03/10/17 with which I agree. [id number]/[facility] #: [id number] MTDD
[2017-03-12 05:44] LABS: Hematocrit 25 % (42-52); Hemoglobin 8.3 g/dl (14.0-18.0); Mean Corpuscular HGB Conc 33 g/dl (31-36); Mean Corpuscular Hemoglobin 31 pg (27-31); Mean Corpuscular Volume 94 fL (80-94); Mean Platelet Volume 8 um3 (7.4-10.4); Red Blood Count 2.71 10^6/ul (4.0-5.4); Red Cell Distribution Width 15 % (10.5-15); White Blood Count 11.9 10^3/ul (3.5-10.8)
[2017-03-12 05:57] LABS: BUN/Creatinine Ratio 25.3 (8-20); EGFR African American 117.8 (>60); EGFR Non-African American 91.6 (>60); Potassium 4.5 mmol/L (3.5-5.0)
[2017-03-12] MEDS: Ferrous Sulfate TAB* 325 MG PO SCH (07:46)
[2017-03-12] MEDS: Famotidine TAB* 20 MG PO SCH (07:46)
[2017-03-12] MEDS: Sotalol TAB* 80 MG PO SCH (07:46)
[2017-03-12] MEDS: Gabapentin CAP(*) 100 MG PO SCH (07:49)
[2017-03-12] MEDS: NS 0.9% 1000 ML* 1,000 ML IV SCH (07:50)
--- NOTE | 2017-03-12 08:29 | PN ---
Progress Note - Progress Note Date of Service: 03/12/17 SOAP: Subjective: No right foot pain, but persistent left foot pain. No nausea or emesis since last night. Wants to go home. Objective: [] Selected Entries 03/12/17 03/12/17 07:17 07:49 Temperature 98.2 F Temperature Oral Source Pulse Rate 74 Respiratory 16 Rate Blood Pressure 98/43 (mmHg) Blood Pressure 56 Mean O2 Sat by Pulse 100 Oximetry Patient on Room Yes Air NAD, AAO x 3 Abdomen soft, nontender Right groin with ecchymosis, but soft and minimally tender "Pressure dressing" from previous day taken down: no active bleeding. 2+ pulses right SUPERVISOR PILE DRIVING, 1+ pop, 1+ DPA, cannot palpate PARTITION NOTCHER Foot is warm to touch Sensation intact Motor function grossly intact Assessment: 71 YOM POD #1 s/p RLE arteriogram, revascularization and balloon angioplasty of the right peroneal artery, ZACH, DPA and superior portion of the "pedal loop". Plan: 1. Please restart Aspirin and Plavix as before. 2. INR 4.0 today: Will hold over weekend and recheck Wednesday to titrate back down to goal INR of 2.5-3.0 3. Referral submitted to Dr. Merida regarding potential bypass options at left leg. 4. Continue high quality wound care with Dr. Pineda.
[2017-03-12] MEDS ORDERED: Aspirin Low Dose CHEW TAB* 81 MG PO SCH (09:00)
[2017-03-12] MEDS ORDERED: Docusate CAP* 100 MG PO SCH (09:00)
[2017-03-12] MEDS ORDERED: Senna/Docusate (NF) TAB PO SCH (09:00)
[2017-03-12] MEDS ORDERED: Senna TAB PO SCH (09:00)
[2017-03-12] MEDS ORDERED: Multivitamins/Minerals TAB PO SCH (09:00)
[2017-03-12] MEDS ORDERED: Clopidogrel TAB* 75 MG PO SCH ×2 (09:00)
[2017-03-12] MEDS ORDERED: Pantoprazole TAB (NF) 20 MG TAB PO SCH (09:00)
[2017-03-12] MEDS ORDERED: Polyethylene Glycol 3350* 17 GM PACKET PO SCH (09:00)
[2017-03-12] MEDS ORDERED: Magnesium Oxide TAB* 400 MG PO SCH (09:00)
[2017-03-12] MEDS ORDERED: Aspirin EC Low Dose* 81 MG TAB.EC PO SCH (09:00)
[2017-03-12] MEDS: Sulfamethox/Trimethoprim DS 800/160* TAB PO SCH (10:13)
[2017-03-12 11:30] VITALS: BP 88/33
--- NOTE | 2017-03-12 21:05 | DS ---
CC: Dr. Ngo; Dr. Pineda; Dr. Russell DISCHARGE SUMMARY: DATE OF ADMISSION: 03/11/17 DATE OF DISCHARGE: 03/12/17 HISTORY: This 71-year-old man came in for elective right angioplasty. Dr. Piña performed the pro cedure as an outpatient. The arterial culture was not successful and the patient was admitted for s trict bed rest with his leg straight till 11:[address] Piña checked him again the next morning, he felt that he was safe to go home. He will restart his aspirin and Plavix. His INR was quite elevated and micha overnight. According to the , the patient has intermittent c ourses of sulfamethoxazole and trimethoprim. I do not think there was any advance adjustment of his warfarin dose. I told her not to give him any warfarin until his INR was checked on Wednesday, , by the visiting nurse who comes and does the fingerstick INR. I also gave instructions in the f uture if he is put on trimethoprim and sulfamethoxazole, to take only half this warfarin dose instea d of a whole dose. The whole dose would normally be 5 mg and that while he is taking trimethoprim a nd sulfamethoxazole, to have his INR checked twice a week. If trimethoprim and sulfamethoxazole is considered an essential medication for him, then switching h im from warfarin to a newer anticoagulant which would not interact with antibiotics is a considerati on. DISCHARGE MEDICATIONS: 1. Atorvastatin 20 mg h.s. 2. Magnesium oxide 400 mg daily. 3. Multivitamin with minerals daily. 4. Calcium carbonate with vitamin D 1 tablet daily. 5. Gabapentin 200 mg b.i.d. 6. Famotidine 20 mg b.i.d. 7. Docusate 200 mg h.s. 8. Oxycodone 5 mg t.i.d. 9. Aspirin 81 mg daily. 10. Ferrous sulfate 325 mg b.i.d. 11. Sotalol 120 mg b.i.d. 12. Fluticasone nasal spray 50 mcg b.i.d. p.r.n. 13. Polyethylene glycol 17 g daily. 14. Sennoside and docusate 1 daily. 15. Clopidogrel 75 mg daily. 16. Vitamin B12 1000 mcg IM monthly. 17. Acetaminophen 650 mg every 4 hours p.r.n. 18. Sulfamethoxazole and trimethoprim 1 tablet twice daily. [id number]/[facility] #: [id number]
--- NOTE | 2017-03-12 21:05 | DS ---
DISCHARGE SUMMARY:* ADDENDUM: MEDICATIONS: Pantoprazole 20 mg daily. [id number]/[facility] #: [id number] MTDD
--- NOTE | 2017-03-15 13:43 | RAD ---
CPT II Codes: 6045F Procedure(s) performed: 1. Diagnostic right lower extremity arteriogram. 2. Revascularization of occluded right peroneal artery, right anterior tibial artery, right dorsalis pedis artery and the superior portion of the right "pedal loop". 3. Balloon angioplasty of the above listed arteries. Date of service: March 11, 2017 Indication for procedure: Ischemic right foot pain and poorly healing right toe wounds in a patient with known peripheral vasculopathy. Comparison: KORY dated October 29, 2016 Contrast: 90 mL Omnipaque 300 Fluoroscopy Time: 35.5 minutes Vessels Accessed: Percutaneous access was obtained with ultrasound guidance in the right common femoral artery in the antegrade direction (i.e. towards the right foot). Catheter arteriography was performed with the tip of the catheter in the right common femoral artery, right superficial femoral artery, right popliteal artery, right peroneal artery and right anterior tibial artery. Anesthesia: Conscious sedation with IV Fentanyl and Versed as well as local 1% lidocaine injected locally at the arteriotomy site. Conscious sedation time: Timeout: 1330 hours Case end: 1705 hours Total conscious sedation time: 3 hours and 35 minutes Additional medications: * 650 mcg IA nitroglycerin injected intermittently throughout the course of the procedure to alleviate arterial spasm. * IV heparin 5000 Units to achieve a goal ACT of 250-300. * The patient received 1 mg of p.o. Ativan prior to the onset of the procedure. PROCEDURE NOTE AND INTRAPROCEDURAL IMAGING FINDINGS: Immediately prior to the procedure the patient signed consent after thoroughly discussing all risks, benefits and alternative therapies. The patient was positioned on the fluoroscopy table in the supine position and the bilateral groins and right ankle were shaved, prepped and the patient was draped in standard sterile fashion. Using fluoroscopic imaging the location of the right common femoral head was marked externally with a skin marker on the patient's groin. Utilizing sonographic guidance and palpation, the right common femoral artery was cannulated overlying the femoral head with an 18-gauge needle. An ultrasound image was saved. A 0.035" wire was slowly and smoothly advanced into the common femoral artery under fluoroscopic imaging. No buckling of the wire was visualized to indicate dissection. With the wire securing percutaneous arterial access, the needle was removed and a 5-Bhutanese SideArm access sheath was advanced under fluoroscopic control into the common femoral artery antegrade into the proximal superficial femoral artery securing access. To further characterize and exactly locate the extent of atherosclerotic disease involving the right lower extremity diagnostic catheter arteriography was necessary. Catheter arteriography with the tip of the sheath in the proximal right superficial femoral artery demonstrates the superior portion of the right superficial femoral artery to be adequately patent. Over the wire a 5-Bhutanese curved tip catheter was advanced to the mid-level right superficial femoral artery and a second arteriogram showed the remainder of the right SFA and popliteal arteries to be adequately patent. The 5-Bhutanese tip catheter was advanced further to the distal most portion of the popliteal artery and contrast arteriography showed the tibioperoneal trunk to be adequately patent. The anterior tibial artery exhibits long segment narrowing at the origin and increasingly more frequent high-grade stenoses at the mid-level and distal portion. The peroneal artery exhibits multiple stenoses at its proximal most portion before becoming completely occluded at the mid-level right leg. The posterior tibial artery either becomes highly stenotic or is totally occluded with a collateral at the vicinity of the BEAM DEPARTMENT SUPERVISOR. Arteriography from the distal right popliteal artery was performed of the right lower leg and foot which again further showed multiple high-grade stenoses in the right anterior tibial artery leading up to a focal occlusion of the right anterior tibial artery measuring approximately 2 cm in length. Distal to this the dorsalis pedis artery is diminutive overall exhibiting multiple stenoses leading into a very narrow "pedal loop". There is very little filling of the plantar arteries. The peroneal artery is extremely diminutive and essentially occludes approximately 4 cm above the ankle joint. The artery that appeared to be the posterior tibial artery is revealed to more likely be a hypertrophied "vasa vasorum" of the BEAM DEPARTMENT SUPERVISOR. Essentially no in-line flow is documented into either plantar artery and the arteries supplying the right heel and beyond the right midfoot are extremely diminutive and "cobweb-like". Over the wire the short 5-Bhutanese SideArm access sheath was exchanged for a 6-Bhutanese, 55 cm length SideArm access sheath which was advanced to the distal popliteal artery under fluoroscopic control. Utilizing a microwire and catheter combination the right peroneal artery was accessed as far as the ankle joint. The distal most portion of the wire was likely in a collateral. With the wire securing access across the stenotic peroneal artery a 2.0-1.5mm x 210 mm Nanocross balloon was advanced into the peroneal artery and balloon angioplasty was performed. During each inflation the balloon remained inflated for a minimum of 2 minutes in anticipation of vasospasm. Care was taken to only balloon to where the peroneal artery terminated a proximally 4 cm above the ankle as do not disrupt collaterals supplying the foot. An arteriogram was performed through the microcatheter with the tip in the peroneal artery indicating improved patency. Next the right anterior tibial artery was selected with the microcatheter and wire combination and utilizing this combination the wire was advanced as far as the pedal loop. Balloon angioplasty was performed along the length of the right anterior tibial artery utilizing the 2.0-1.5mm x 210 mm Nanocross balloon. The balloon was advanced further into the dorsalis pedis artery crossing the previously identified 2 cm occlusion of the distal right ZACH and balloon angioplasty was performed again. The balloon was replaced with a 2.5-2.0 x 210 mm Nanocross balloon and balloon angioplasty was performed from the dorsalis pedis artery along the length of the anterior tibial artery. During each inflation the balloon remained inflated for no less than 3 minutes. This balloon was removed and replaced with a 4.0-3.5mm x 210mm Nanocross balloon which was utilized to balloon angioplasty only as far as the ZACH-DPA junction. Again, inflation was held for 3 minutes or more during each inflation to control angioplasty. The more proximal angioplasty of the right ZACH spanned the ostium extending into the distal most portion of the popliteal artery. Subsequent arteriogram showed improved brisk patent flow from the popliteal artery as far as the pedal loop. A small dissection was noted at the midline proximal metatarsal portion of the pedal loop. At this point the procedure the dissection at the plantar surface of the foot was identified and located utilizing an external marker and multiple projections and direct manual pressure was applied to the site of dissection for the remainder of the procedure totaling at least 30 minutes. Over the wire the access sheath was exchanged for a new 7-Bhutanese, 11 cm length access sheath intended specifically for percutaneous arterial closure. Through the side arm of the access sheath arteriography of the right common femoral artery demonstrated an appropriate puncture of the common femoral artery above the bifurcation and below the inferior epigastric artery. After an appropriate resterilization of the arteriotomy and exchange for new sterile gloves, a Minx closure device was attempted but percutaneous access with the sheath was lost. Because it was determined a closure device could not be safely deployed, the balloon was deflated and the entire system removed. Direct manual pressure was held at the right common femoral arteriotomy for approximately 1 hour and 10 minutes. After this lengthy period of direct manual pressure, there were no signs of active bleeding at the percutaneous arterial access site and the site was dressed with a with a sterile gauze "pressure dressing". The patient tolerated the procedure well and was transferred to angiography holding bay for standard post procedural observation. SUMMARY OF PROCEDURE, IMAGING FINDINGS AND INTERVENTIONS PERFORMED: 1. Diagnostic studies performed: * Arterial access was obtained at the right common femoral artery in the antegrade direction (i.e. towards the foot) with ultrasound guidance. A sonographic image was recorded. * Diagnostic catheter angiography (necessary to perform the appropriate interventions) was performed with the catheter tip in the right superficial femoral artery, right popliteal artery, right peroneal artery and right anterior tibial artery. * Catheter arteriography was performed of the entire right lower extremity arterial vasculature from the distal right external iliac artery to the extremely diminutive digital branches of the right foot. * At the conclusion of the procedure arteriography was performed through the side arm of the access sheath to image the distal right external iliac artery, right common femoral artery and proximal superficial femoral artery and femoral profundus. 2. Interpretation of diagnostic studies performed: * Adequate patency from the right external iliac artery extending to the distal popliteal artery and tibioperoneal trunk. * Long segment narrowing at the proximal right anterior tibial artery followed by increasingly more frequent high-grade stenoses at the mid-level and distal ZACH including an approximately 2 cm occlusion of the distal right anterior tibial artery. The right dorsalis pedis artery fills by collateralized flow and is diminutive also exhibiting multiple stenoses. Only the superior half of the "pedal loop" filled with contrast and there was essentially no collateral flow documented into the right plantar arteries. * Multiple stenoses in the right peroneal artery leading up to complete occlusion at approximately the mid-level right lower leg. * What was thought to be an extremely diminutive right posterior tibial artery appeared on subsequent arteriograms to be a hypertrophied vasa vasorum, not amenable to balloon angioplasty. * Arteriography performed for the purpose of deploying a percutaneous arterial closure device demonstrates adequately patent right external iliac artery, common femoral artery and proximal superficial femoral artery and femoral profundus. 3. Surgical interventions performed: * Revascularization and balloon angioplasty of the right peroneal artery utilizing a 2.0-1.5 mm x 210 mm Nanocross balloon. * Revascularization and balloon angioplasty of the right anterior tibial artery, dorsalis pedis artery and pedal loop utilizing a 2.0-1.5 mm x 210 mm Nanocross balloon. * The right distal most popliteal artery, anterior tibial artery and proximal most portion of the right dorsalis pedis artery were balloon angioplastied with a 4.0-3.5mm x 210mm Nanocross balloon. * Closure of the right common femoral artery was unsuccessful with a Minx closure device and direct manual pressure was held for approximately 1 hour and 10 minutes. 4. Interpretation of interventions performed: * Final arteriography demonstrated adequate in-line arterial flow from the popliteal artery through the right peroneal artery, right anterior tibial artery into the dorsalis pedis artery and the superior portion of the pedal loop. * A small arterial dissection was identified at the plantar surface of the right foot. Direct manual pressure was held for approximately 30 minutes on the plantar surface of the foot. Subsequent arteriogram did not show any extravasation or enlargement.. Plan: 1. Aspirin 81 mg p.o. daily for life. 2. Plavix 75 mg p.o. daily x 6 months. 3. Clinical and imaging follow-up according to standard Interventional Radiology protocol.
== END 2017-03-12 13:15 | disposition home or self-care (01) ==
LOC: CHICATH 10:31 → SSU 18:45
PROVIDERS: ADMIT Internal Medicine; ATTEND Radiology Diagnostic Radiology
DX: I70.261 Atherosclerosis of native arteries of extremities with gangrene, right leg (principal); Z79.01 Long term (current) use of anticoagulants; Z79.82 Long term (current) use of aspirin; I48.91 Unspecified atrial fibrillation; K21.9 Gastro-esophageal reflux disease without esophagitis
CPT/HCPCS: 36415; 76937; 80048; 85014; 85018; 85025; 85610; 87641; 99156; 99157; A9270-GY; C1725; C1760; C1887; C1894; G0278; G0378; J0780; J1644; J2001; J2250; J2310; J2405; J3010

== ENCOUNTER 2017-05-04 07:08 | Inpatient (IN) | payer MEDICARE, BC ==
[2017-05-04] MEDS ORDERED: Bisacodyl SUPP* 10 MG SUPP PR PRN (13:14)
[2017-05-04] MEDS ORDERED: Acetaminophen TAB* 325 MG PO PRN (13:14)
[2017-05-04] MEDS ORDERED: ALPRAZolam TAB* 0.25 MG PO PRN (13:33)
[2017-05-04] MEDS: Gabapentin CAP(*) 100 MG PO SCH ×2 (16:05→19:55)
[2017-05-04] MEDS: Warfarin TAB(*) 5 MG PO SCH (17:49)
[2017-05-04] MEDS: Atorvastatin* 20 MG TAB PO SCH (17:50)
[2017-05-04] MEDS: Diltiazem TAB* 30 MG PO SCH (17:50)
[2017-05-04] MEDS: Metoprolol Tartrate TAB* 50 mg PO SCH (19:53)
[2017-05-04] MEDS: oxyCODONE TAB* 5 MG TAB PO PRN (19:54)
[2017-05-04] MEDS: Magnesium Oxide TAB* 400 MG PO SCH (19:55)
[2017-05-04] MEDS: Famotidine TAB* 20 MG PO SCH (19:55)
[2017-05-04] MEDS: Docusate CAP* 100 MG PO SCH (20:05)
[2017-05-04] MEDS: Senna TAB PO SCH (20:05)
--- NOTE | 2017-05-04 20:56 | HP ---
ADMISSION HISTORY AND PHYSICAL: DATE OF ADMISSION: 05/04/17 REASON FOR ADMISSION: Left below the knee amputation. HISTORY OF PRESENT ILLNESS: Daryn Walden is a 71-year-old man. He has a medical history significant for peripheral vascular disease. He also has a history of over the winter having fallen and broken his back. He had lot of difficulty over the winter with pain in his low back. He has had peripheral vascular disease of both lower extremities. He has been treated in the wound clinic and followed by Dr. Pineda as well as Dr. Borrego in the wound clinic. The patient apparently had procedures, which were unsuccessful in restoring circulation to his left leg. He had an angiogram that demonstrated no bypass options. He was sent to see Dr. Merida. He was admitted to [facility], 04/15/17. He was taken to the operating room for a left below the knee amputation. He tolerated the procedure well and was brought to the PACU in stable condition. Unfortunately, his postoperative course was complicated. He required reintubation and vasopressor support for hypotension and respiratory distress. He had a GI bleed on 04/19/17. He had melenic stools and supratherapeutic INR. He had an upper endoscopy and was found to have 3 gastric ulcerations. He was extubated on 04/20/17, but then required reintubation for fluid overload and was finally extubated, 04/24/17. He went into atrial fibrillation with rapid ventricular response. He was put on a diltiazem drip. His sotalol was discontinued and he was put on metoprolol as well as diltiazem. He was restarted on Coumadin for stroke prevention. The patient was seen by the medicine service because of fluid overload and required aggressive diuresis with eventual good results. He was seen by Physical Therapy , Occupational Therapy, and Speech Therapy. He was found to have needs in all 3 disciplines. He was put on a mechanical ground diet with thin liquids. He is now being admitted for inpatient rehab so that he might return to independent living. PAST MEDICAL HISTORY: Significant for atrial fibrillation; gastroesophageal reflux disease; peripheral vascular disease; he also has a history of a broken back over the winter of 2016; as mentioned he has had ulcers on his left leg, which have been followed in the wound clinic. CURRENT MEDICATIONS: Include: 1. Lipitor. 2. Xanax . 3. Lexapro. 4. Cardizem. 5. Pepcid. 6. Flonase. 7. Neurontin. 8. Lopressor. 9. Oxycodone. 10. Protonix. 11. Coumadin. ALLERGIES: He has no known drug allergies. SOCIAL HISTORY: He is a nonsmoker, nondrinker. Lives at the independent apartments at [place]. He is living with his significant other. REVIEW OF SYSTEMS: The patient reports no current shortness of breath or chest pain. PHYSICAL EXAMINATION VITAL SIGNS: The patient's temperature is 99.5, blood pressure is 117/58, pulse 101, respirations 18. HEENT: His extraocular movements are intact. Tongue is midline. NECK: Supple. LUNGS: Sound clear to auscultation bilaterally. HEART: Sounds are regular. S1 and S2 audible. ABDOMEN: Soft and nontender. EXTREMITIES: His left stump appeared to be clean and dry. NEUROLOGIC: The patient is awake, alert, and oriented. Muscle strength was about 4+/5 throughout. FUNCTIONAL EXAM: He transfers with min assistance. ASSESSMENT: Left below the knee amputation with a complicated postoperative course. PLAN: Our plan is to integrate him into comprehensive and therapeutic rehab program with the following goals: 1. Physical Therapy will see the patient. They are going to work on functional transfer training, pre-prosthetic training, and ambulation training with a walker. 2. Occupational Therapy will see the patient and work on his activities of daily living including pre-prosthetic training. 3. Speech Therapy will see the patient and work on any swallowing difficulties. 4. Coumadin for atrial fibrillation and DVT prophylaxis. 5. Continue his Coumadin for AFib as well as his beta marcelo. 6. Adequate analgesia. 7. His bowels will be regulated. 8. For GI prophylaxis, we will continue both Pepcid and Protonix. 9. Xanax for anxiety as needed. 10. hosted services analyst will be closely involved to make sure that any services and equipment the patient requires are in place prior to discharge. 11. Advance directives: He is a full code. His daughter is his surrogate decision maker. ESTIMATED LENGTH OF STAY: 14 days. [id number]/[facility] #: [id number] DARNELL
[2017-05-05] MEDS: Diltiazem TAB* 30 MG PO SCH ×4 (00:21→17:27)
[2017-05-05] MEDS: Metoprolol Tartrate TAB* 50 mg PO SCH ×2 (08:43→19:46)
[2017-05-05] MEDS: Citalopram TAB* 20 MG PO SCH (08:43)
[2017-05-05] MEDS: Gabapentin CAP(*) 100 MG PO SCH ×3 (08:44→19:50)
[2017-05-05] MEDS: Magnesium Oxide TAB* 400 MG PO SCH ×2 (08:44→19:49)
[2017-05-05] MEDS: Famotidine TAB* 20 MG PO SCH ×2 (08:45→19:50)
[2017-05-05] MEDS: Fluticasone NASAL SPRAY 50MCG* 16 gm SPRAY BTL BOTH NARES SCH (08:46)
[2017-05-05] MEDS ORDERED: Influenza VAC *QUAD* 2017-18* 0.5 ML SYRINGE IM ONE (09:00)
[2017-05-05] MEDS: Docusate CAP* 100 MG PO SCH ×2 (09:04→19:50)
[2017-05-05] MEDS: oxyCODONE TAB* 5 MG TAB PO PRN ×2 (09:12→19:50)
[2017-05-05 09:41] LABS: Hematocrit 35 % (42-52); Hemoglobin 11.4 g/dl (14.0-18.0); Mean Corpuscular HGB Conc 32 g/dl (31-36); Mean Corpuscular Hemoglobin 28 pg (27-31); Mean Corpuscular Volume 87 fL (80-94); Mean Platelet Volume 8 um3 (7.4-10.4); Red Blood Count 4.04 10^6/ul (4.0-5.4); Red Cell Distribution Width 17 % (10.5-15); White Blood Count 3.2 10^3/ul (3.5-10.8)
[2017-05-05 09:45] LABS: Add Diff/Slide Review? Slide Review Added; Comments Flag Yes
[2017-05-05 09:54] LABS: Calcium 8.6 mg/dL (8.6-10.3); EGFR African American 227.1 (>60); EGFR Non-African American 176.6 (>60); Potassium 3.5 mmol/L (3.5-5.0); Total Bilirubin 0.6 mg/dL (0.2-1.0)
[2017-05-05] MEDS: Pantoprazole TAB (NF) 20 MG TAB PO SCH (13:49)
[2017-05-05] MEDS: Warfarin TAB(*) 5 MG PO SCH (17:26)
[2017-05-05] MEDS: Atorvastatin* 20 MG TAB PO SCH (17:27)
[2017-05-05] MEDS: Senna TAB PO SCH (19:50)
[2017-05-06] MEDS: Diltiazem TAB* 30 MG PO SCH ×4 (00:29→17:30)
[2017-05-06] MEDS: Famotidine TAB* 20 MG PO SCH ×2 (08:54→19:57)
[2017-05-06] MEDS: Citalopram TAB* 20 MG PO SCH (08:54)
[2017-05-06] MEDS: Gabapentin CAP(*) 100 MG PO SCH ×3 (08:54→19:56)
[2017-05-06] MEDS: Metoprolol Tartrate TAB* 50 mg PO SCH ×2 (08:55→19:54)
[2017-05-06] MEDS: Fluticasone NASAL SPRAY 50MCG* 16 gm SPRAY BTL BOTH NARES SCH (08:55)
[2017-05-06] MEDS: Magnesium Oxide TAB* 400 MG PO SCH ×2 (08:55→19:55)
[2017-05-06] MEDS: Docusate CAP* 100 MG PO SCH ×2 (09:11→19:56)
[2017-05-06] MEDS: oxyCODONE TAB* 5 MG TAB PO PRN ×2 (09:40→19:56)
[2017-05-06] MEDS: Pantoprazole TAB (NF) 20 MG TAB PO SCH (10:45)
[2017-05-06] MEDS: Atorvastatin* 20 MG TAB PO SCH (17:30)
[2017-05-06] MEDS: Warfarin TAB(*) 3 MG PO SCH (17:30)
[2017-05-06] MEDS: Senna TAB PO SCH (19:55)
[2017-05-07] MEDS: Diltiazem TAB* 30 MG PO SCH ×4 (00:45→17:44)
[2017-05-07] MEDS: Omeprazole CAP* 20 MG PO SCH (06:14)
[2017-05-07] MEDS: Metoprolol Tartrate TAB* 50 mg PO SCH ×2 (08:31→20:24)
[2017-05-07] MEDS: Famotidine TAB* 20 MG PO SCH ×2 (08:32→20:21)
[2017-05-07] MEDS: Docusate CAP* 100 MG PO SCH ×2 (08:32→20:22)
[2017-05-07] MEDS: Gabapentin CAP(*) 100 MG PO SCH ×3 (08:32→20:19)
[2017-05-07] MEDS: Magnesium Oxide TAB* 400 MG PO SCH ×2 (08:33→20:21)
[2017-05-07] MEDS: oxyCODONE TAB* 5 MG TAB PO PRN ×3 (08:33→20:18)
[2017-05-07] MEDS: Fluticasone NASAL SPRAY 50MCG* 16 gm SPRAY BTL BOTH NARES SCH (08:35)
[2017-05-07] MEDS: Citalopram TAB* 20 MG PO SCH (08:38)
--- NOTE | 2017-05-07 14:14 | PMRUTEAM ---
PMRU: Goals Current Status: Nursing: Current Status Skin Deviations [left stump] Incision Skin Deviations [Midline Abrasion,Bruise Coccyx] Skin Deviations [Left Abrasion Posterior Knee] Skin Deviations [Right Heel] Other Skin Deviation Description [ Sutures CDI left stump] Skin Deviation Description [ #3 cream applied Midline Coccyx] Skin Deviation Description [ xeroform, telfa and kerlex applied Left Posterior Knee] Skin Deviation Description [ redness noted, #3 cream applied, spenko boot in Right Heel] place when in bed Bladder Current Status continent, wears adult brief Bowel Current Status continent, lat BM 05/07/17, taking bowel meds Nutrition Current Status adequate Medication Current Status supervision, reducation Physical Therapy: Current Status Bed Mobility Assistance Supervision Transfer Moblility Assistance Mod Assist,2 or More Person Assist Transfer/Bed Mobility None,Rolling Walker,Kalia Lift Recommended Devices Ambulation Assistance Independent Ambulation Assistive Devices Rolling Walker Wheelchair Distance (ft) 150 Occupational Therapy: Current Status Upper Body Dressing Min Assist Lower Body Dressing Mod Assist Bathing Mod Assist Toileting Min Assist,Mod Assist Toilet Transfer Mod Assist,2 Person Assist Eating Independent Social Work: Current Status Discharge Plan return home with home care svs and family support Potential for Family Training pt's ex- is involved and supportive Anticipated Discharge Home Destination Discharge With home care svs and family support Speech: Current Status Assessment Patient demonstrated an increase in accuracy for sequencing tasks this date, as he accurately sequenced 4 pictures of a functional task with 100 % accuracy. He had slight difficulty with functional time/money-management tasks. The patient will continue to benefit from skilled speech-language pathology services to address cognitive-linguistic deficits and to be sure the patient is exhibiting optimal swallowing function safety. Goals: Physical Therapy: Initial Goals Bed Mobility Assistance Independent Transfer Mobility Assistance Independent Transfer/Bed Mobility Rolling Walker Recommended Devices Ambulation Independent Ambulation Recommended Devices Rolling Walker Ambulation Distance 50 Wheelchair Propulsion Ability Independent Wheelchair Distance (ft) 150 Stairs Assistance Independent Number of Stairs 1 Physical Therapy: Updated Goals Transfer/Bed Mobility Rolling Walker,Kalia Lift Recommended Devices Occupational Therapy: Initial Goals Goals to be Completed in (Days 14 ) Upper Body Bathing Routine Supervision/Set Up Lower Body Bathing Routine Supervision/Set Up Upper Body Dressing Routine Supervision/Set Up Lower Body Dressing Routine Supervision/Set Up Toilet Hygeine and Clothing Modified Independent with Management Routine Toilet Transfer Routine Modified Independent with Step-In Shower Transfer Supervision/Set Up Routine Functional Transfers for ADL Modified Independent with Grooming Routine Supervision/Set Up Feeding Routine Independent Nursing: Goals Bladder Goal continent Bowel Goal continent, regular bowel movements Nutrition Goal 100% of all meals Medication Goal independent Speech: Goals Speech Goal 1 Dysphagia Goal 1 Comments LTG: The patient will demonstrate safe po of thin liquid and soft solids with no overt s/s of aspiraiton/penetration per PR[employer]ANGELIST observation/ RN report. ST. The patient will demonstrate safe po of soft solids and thin liquids with no overt s/s of aspiration/penetration over 10 trials each. Status: Patient respectively declined PO trials this date, as he had just finished lunch tray. Patient continued to demonstrate habital throat clear throughout session. Data from 05/05/17: Patient seen with lunch tray this date. He was amenable to eating pureed vegetables and drinking his thin liquids - milk and hot tea. No throat clearing, coughing, or change in vocal quality observed throughout the session related to oral intake. Patient refused his soft solid pasta shell stating, "not hungry". The patient was noted to clear his throat thoughout the session at random times. This seemed habitual and was non-productive. The patient was educated on good vocal hygiene; encouraged to not throat clear in a harsh manner. The patient reported that he tends to get, "post nasal drip and it can make me clear my throat." "I 've had post nasal drip for a long time." Will monitor; ongoing. Speech Goal 2 Cognitive-linguistic Speech Goal 2 Comments LTG: The patient will improve functional cognitive -linguistic skills for improved safety, function and independence for daily living tasks with use of strategies as needed. STGs: 1. The patient will complete immediate memory forward and backward for 3-5 digits at 80% accuracy. 2. The patient will complete various functional short term memory tasks with use of strategies at 80% accuracy. 3. The patient will complete functional sequencing tasks for 3-4 items at 80% accuracy. Status: Patient sequenced 4 pictures of functional steps with 100% accuracy. 4. The patient will state/demonstrate viable solutions to functional daily problem scenarios at 80% accuracy. Status: - Patient identified functional scenario pictures as "safe" or "unsafe" and identified problem with 90% accuracy; however he had difficulty stating solutions. - Telling time: 83% - Writing hands on clock: 92% - Counting money/coins: 90% 5. The patient will write functional sentences at 80% accuracy with min cues. Social Work: Goals Discharge Plan return home with home care svs and family support Potential for Family Training pt's ex- is involved and supportive Anticipated Discharge Home Destination Discharge With home care svs and family support Care Plan: Care Plan ADL's - Improve/Maintain Start: 05/05/17 15:52 Freq: DAILY Status: Active Target: Activity Type Activity Date Activity User E-Sign Co-Sign Detail Recorded Client Recorded Date Recorded By Document 05/06/17 14:43 [id number] [id number] 05/06/17 14:43 [id number] 05/06/17 14:43 PMRU Outcome: ADL's/ADL Transfers Orders/Interventions Occupational Therapy Evaluation & Treatment Communication Tool in Patient Room Device Yes Patient to receive OT 5x/wk for 60-120 Therex min/day Self Care Management Group Therapy UE/LE ADL's with Assist Yes: setupA ADL Transfers with Assist Yes: Sagar except supervision for shower transfer Toileting: Transfers,Clothing Management Yes: Sagar ,Hygeine w/Assist Light Kitchen/Laundry w/Assist No Progression Toward Outcome/Goals Progressing Outcome/Goals Met Pt participated well with v/c' s for attention to task. Communication-Improve/Maintain Start: 05/04/17 15:31 Freq: DAILY Status: Active Target: Activity Type Activity Date Activity User E-Sign Co-Sign Detail Recorded Client Recorded Date Recorded By Document 05/06/17 14:28 [id number] 05/06/17 14:29 [id number] 05/06/17 14:28 PMRU Outcome: Communication/Cognitive Status Other Outcomes/Goals The patient will complete various functional cognitive- lingusitic tasks at 90% accuracy Progression Toward Outcomes/Goals Progressing Outcome/Goals Met Comment - Sequencing 4 pictures of functional task : 100% - Patient identified functional scenario pictures as " safe" or " unsafe" and identified problem with 90 % accuracy; however he had difficulty stating solutions. - Telling time: 83% - Writing hands on clock: 92% - Counting money/coins: 90 % Coping/Psych-Improve/Maintain Start: 05/04/17 14:05 Freq: DAILY Status: Active Target: Activity Type Activity Date Activity User E-Sign Co-Sign Detail Recorded Client Recorded Date Recorded By Document 05/07/17 11:41 [id number] 05/07/17 11:42 [id number] 05/07/17 11:41 PMRU Outcome: Coping/Psychosocial Coping Outcome/Goals Verbalization of Acceptance of Rehab Admit Verbalization of Sense of Control Over Health Status Utilization of Appropriate Problem Solving Techniques Willingness to Participate in Treatment Plan and Basic Needs Psychosocial Outcome/Goals Cooperate/ Participate in Plan Progression Toward Outcome/Goals - Progressing Coping Progression Toward Outcome/Goals - Progressing Psychosocial DVT Prophylaxis- Improve/Maintain Start: 05/04/17 14:05 Freq: DAILY Status: Active Target: Activity Type Activity Date Activity User E-Sign Co-Sign Detail Recorded Client Recorded Date Recorded By Document 05/07/17 11:41 [facility] [place]/07/17 11:42 05/07/17 11:41 PMRU Outcome: DVT Prophylaxis Outcome/Goals Remains Free of DVT Complies with DVT Prophylaxis /Treatment Progression Toward Outcome/Goals Progressing Discharge Planning - Improve/Maintain Start: 05/04/17 14:05 Freq: DAILY Status: Active Target: Activity Type Activity Date Activity User E-Sign Co-Sign Detail Recorded Client Recorded Date Recorded By Document 05/07/17 11:41 [id number] [facility] [place] 05/07/17 11:42 [id number] 05/07/17 11:41 PMRU Outcome: Discharge Planning Identify Patient Needs yes Update Patient Family No Outcome/Goals Demonstrates Understanding of Discharge Plan Progression Toward Outcome/Goals Progressing Education-Improve/Maintain Start: 05/04/17 14:05 Freq: DAILY Status: Active Target: Activity Type Activity Date Activity User E-Sign Co-Sign Detail Recorded Client Recorded Date Recorded By Document 05/07/17 11:41 [id number] [facility] [place] 05/07/17 11:42 [id number] 05/07/17 11:41 PMRU Outcome: Education Outcome/Goals Encourage Questions Progression Toward Outcome/Goals Progressing /GI-Improve/Maintain Start: 05/04/17 14:05 Freq: DAILY Status: Active Target: Activity Type Activity Date Activity User E-Sign Co-Sign Detail Recorded Client Recorded Date Recorded By Document 05/07/17 11:41 [id number] [id number] 05/07/17 11:42 [id number] 05/07/17 11:41 PMRU Outcome: Genitourinary/ Gastrointestinal Genitourinary- Outcome/Goals Remain Free of Hospital- Acquired UTI Gastrointestinal-Outcome/Goals Prevent Constipation Laxatives as Ordered Progression Toward Outcome/Goals - Progressing Progression Toward Outcome/Goals - GI Progressing Outcome/Goals Met Comment pt used bed chong Medication Administration Start: 05/04/17 14:05 Freq: DAILY Status: Active Target: Activity Type Activity Date Activity User E-Sign Co-Sign Detail Recorded Client Recorded Date Recorded By Document 05/07/17 11:41 [id number] 05/07/17 11:42 [id number] 05/07/17 11:41 PMRU Outcome: Medication Administration Assess Patient Knowledge/Teach Med Yes Education for all Meds Outcome/Goals Family/ Caregiver Administer Medications at Home Progression Towards Outcome/Goals Progressing Is Patient Going Home on Lovenox? No Mobility- Improve/Maintain Start: 05/06/17 16:48 Freq: DAILY Status: Active Target: Activity Type Activity Date Activity User E-Sign Co-Sign Detail Recorded Client Recorded Date Recorded By Document 05/06/17 16:52 [id number] 05/06/17 16:52 [id number] 05/06/17 16:52 PMRU Outcome: Mobility Physical Therapy Evaluation and Yes Treatment Activity OOB with Assistance Yes NWB Yes: LLE BKA Device Yes Assistance Yes Patient to be seen 5x/wk for 60-120 min/ Therex day for: Mobility Training Gait Training W/C Mobility Balance Outcome/Goals Maintain/ Achieve Baseline Mobility Status Improve Mobility Status Demonstrates Proper Use of Assistive Devices Free from Complications of Immobility Progression Toward Outcome/Goals Progressing Bed Mobility Yes: independent Transfers Yes: independent with rolling walker Gait x ft Yes: independnet with rolling walker 50' W/C Mobility x ft Yes: independent 150 Up/Down Stairs Yes: independent up/ down 1 step with 2 rails. Neurological- Improve/Maintain Start: 05/04/17 14:05 Freq: DAILY Status: Active Target: Activity Type Activity Date Activity User E-Sign Co-Sign Detail Recorded Client Recorded Date Recorded By Document 05/07/17 11:41 [id number] 05/07/17 11:42 [id number] 05/07/17 11:41 PMRU Outcome: Neurological Weakness/Aphasia Weakness Weakness/Aphasia Comment generalized weakness Outcome/Goals Maintain/ Improve Strength/ROM Progression Toward Outcome/Goals Progressing Nutrition/Swallowing- Improve/Maintain Start: 05/04/17 15:31 Freq: DAILY Status: Active Target: Activity Type Activity Date Activity User E-Sign Co-Sign Detail Recorded Client Recorded Date Recorded By Document 05/07/17 11:41 [id number] 05/07/17 11:42 [id number] 05/07/17 11:41 PMRU Outcome: Nutrition/Swallowing Outcome/Goals Demonstrates Adequate Hydration/ Prevents Dehydration Other Outcome/Goals The patient will demonstrate safe po of thin liquid and soft solids with no overt s /s of aspiration/ penetration Progression Toward Outcome/Goals Progressing Outcome/Goals Met Comment Evaluation completed. Recommend thin liquid and soft solids Pain/Comfort- Improve/Maintain Start: 05/04/17 14:05 Freq: DAILY Status: Active Target: Activity Type Activity Date Activity User E-Sign Co-Sign Detail Recorded Client Recorded Date Recorded By Document 05/07/17 11:41 [facility] 05/07/17 11:42 [id number] 05/07/17 11:41 PMRU Outcome: Pain/Comfort Outcome/Goals Demonstrates Knowledge and Use of Available Comfort Measures Achieves Acceptable Comfort/Pain Level as Determined by Patient/Condit Maintain Comfort Level Allowing Patient to Fully Participate in Rehab Progression Toward Outcome/Goals Progressing Outcome/Goals Met Comment Oxycodone given for pain control Respiratory - Improve/Maintain Start: 05/04/17 14:05 Freq: DAILY Status: Active Target: Activity Type Activity Date Activity User E-Sign Co-Sign Detail Recorded Client Recorded Date Recorded By Document 05/07/17 11:41 [id number] [facility] [place] 05/07/17 11:42 [id number] 05/07/17 11:41 PMRU Outcome: Respiratory Does Patient Have a Trach No Outcome/Goals Prevent Pneumonia/ Atelectasis Progression Toward Outcome/Goals Progressing Safety- Improve/Maintain Start: 05/04/17 14:05 Freq: DAILY Status: Active Target: Activity Type Activity Date Activity User E-Sign Co-Sign Detail Recorded Client Recorded Date Recorded By Document 05/07/17 11:41 [id number] [email or web address] 05/07/17 11:42 [id number] 05/07/17 11:41 PMRU Outcome: Safety Outcome/Goals Prevent Falls/ Injury Progression Toward Outcome/Goals Progressing Outcome/Goals Met Comment PA in place Skin- Improve/Maintain Start: 05/04/17 14:05 Freq: DAILY Status: Active Target: Activity Type Activity Date Activity User E-Sign Co-Sign Detail Recorded Client Recorded Date Recorded By Document 05/07/17 11:41 [id number] 05/07/17 11:42 [id number] 05/07/17 11:41 PMRU Outcome: Skin Skin Risk Level Medium Skin Orders Dressing Change Teach Patient Turn/Position q2hr While in Bed Outcome/Goals Surgical Incisions Healing Progression Toward Outcome/Goals Progressing Medicine Note: Length of Stay: 3 weeks Anticipated Discharge Destination: Home Tentative Discharge Date: 05/28/17 Discharged to: home
[2017-05-07] MEDS: Atorvastatin* 20 MG TAB PO SCH (17:04)
[2017-05-07] MEDS: Warfarin TAB(*) 3 MG PO SCH (17:04)
[2017-05-07] MEDS: Senna TAB PO SCH (20:26)
[2017-05-08] MEDS: Diltiazem TAB* 30 MG PO SCH ×4 (02:57→18:15)
[2017-05-08] MEDS: Omeprazole CAP* 20 MG PO SCH (06:50)
[2017-05-08] MEDS: Metoprolol Tartrate TAB* 50 mg PO SCH ×2 (08:56→21:27)
[2017-05-08] MEDS: Famotidine TAB* 20 MG PO SCH ×2 (08:56→21:20)
[2017-05-08] MEDS: Citalopram TAB* 20 MG PO SCH (08:57)
[2017-05-08] MEDS: Docusate CAP* 100 MG PO SCH ×2 (08:57→21:21)
[2017-05-08] MEDS: Magnesium Oxide TAB* 400 MG PO SCH ×2 (08:57→21:21)
[2017-05-08] MEDS: Gabapentin CAP(*) 100 MG PO SCH ×3 (08:57→21:19)
[2017-05-08] MEDS: Fluticasone NASAL SPRAY 50MCG* 16 gm SPRAY BTL BOTH NARES SCH (08:59)
[2017-05-08] MEDS: oxyCODONE TAB* 5 MG TAB PO PRN ×2 (10:06→18:15)
[2017-05-08] MEDS: Warfarin TAB(*) 3 MG PO SCH (16:37)
[2017-05-08] MEDS: Atorvastatin* 20 MG TAB PO SCH (16:37)
[2017-05-08] MEDS: Senna TAB PO SCH (21:20)
[2017-05-09] MEDS: oxyCODONE TAB* 5 MG TAB PO PRN ×3 (00:14→20:37)
[2017-05-09] MEDS: Diltiazem TAB* 30 MG PO SCH ×4 (00:14→17:27)
[2017-05-09] MEDS: Omeprazole CAP* 20 MG PO SCH (06:35)
[2017-05-09] MEDS: Fluticasone NASAL SPRAY 50MCG* 16 gm SPRAY BTL BOTH NARES SCH (08:41)
[2017-05-09] MEDS: Magnesium Oxide TAB* 400 MG PO SCH ×2 (08:42→20:37)
[2017-05-09] MEDS: Docusate CAP* 100 MG PO SCH ×2 (08:42→20:38)
[2017-05-09] MEDS: Citalopram TAB* 20 MG PO SCH (08:42)
[2017-05-09] MEDS: Famotidine TAB* 20 MG PO SCH ×2 (08:42→21:03)
[2017-05-09] MEDS: Gabapentin CAP(*) 100 MG PO SCH ×3 (08:43→20:37)
[2017-05-09] MEDS: Metoprolol Tartrate TAB* 50 mg PO SCH ×2 (08:44→20:43)
[2017-05-09] MEDS: Warfarin TAB(*) 3 MG PO SCH (16:36)
[2017-05-09] MEDS: Atorvastatin* 20 MG TAB PO SCH (16:36)
[2017-05-09] MEDS: Senna TAB PO SCH (20:38)
[2017-05-10] MEDS: Diltiazem TAB* 30 MG PO SCH ×4 (00:37→17:30)
[2017-05-10] MEDS: Omeprazole CAP* 20 MG PO SCH (05:55)
[2017-05-10] MEDS: Metoprolol Tartrate TAB* 50 mg PO SCH ×2 (07:54→21:33)
[2017-05-10] MEDS: Gabapentin CAP(*) 100 MG PO SCH ×3 (07:54→21:32)
[2017-05-10] MEDS: Fluticasone NASAL SPRAY 50MCG* 16 gm SPRAY BTL BOTH NARES SCH (07:55)
[2017-05-10] MEDS: Famotidine TAB* 20 MG PO SCH ×2 (07:55→21:31)
[2017-05-10] MEDS: Docusate CAP* 100 MG PO SCH ×2 (07:55→21:32)
[2017-05-10] MEDS: Citalopram TAB* 20 MG PO SCH (07:55)
[2017-05-10] MEDS: Magnesium Oxide TAB* 400 MG PO SCH ×2 (07:55→21:31)
[2017-05-10] MEDS ORDERED: Cyanocobalamin INJ * 1,000 MCG/ML VIAL 1 ML VIAL IM SCH (09:00)
[2017-05-10] MEDS: oxyCODONE TAB* 5 MG TAB PO PRN ×3 (10:30→21:44)
[2017-05-10] MEDS: Warfarin TAB(*) 3 MG PO SCH (17:29)
[2017-05-10] MEDS: Atorvastatin* 20 MG TAB PO SCH (17:29)
[2017-05-10] MEDS: Senna TAB PO SCH (21:34)
[2017-05-11] MEDS: Diltiazem TAB* 30 MG PO SCH ×4 (00:59→17:34)
[2017-05-11] MEDS: Omeprazole CAP* 20 MG PO SCH (06:12)
[2017-05-11] MEDS: Famotidine TAB* 20 MG PO SCH ×2 (08:01→21:42)
[2017-05-11] MEDS: Gabapentin CAP(*) 100 MG PO SCH ×3 (08:01→21:43)
[2017-05-11] MEDS: Fluticasone NASAL SPRAY 50MCG* 16 gm SPRAY BTL BOTH NARES SCH (08:01)
[2017-05-11] MEDS: Magnesium Oxide TAB* 400 MG PO SCH ×2 (08:01→21:42)
[2017-05-11] MEDS: Citalopram TAB* 20 MG PO SCH (08:01)
[2017-05-11] MEDS: Docusate CAP* 100 MG PO SCH ×2 (08:02→21:43)
[2017-05-11] MEDS: Metoprolol Tartrate TAB* 50 mg PO SCH ×2 (08:02→21:43)
[2017-05-11] MEDS: oxyCODONE TAB* 5 MG TAB PO PRN ×3 (09:26→21:42)
--- NOTE | 2017-05-11 12:46 | PMRUTEAM ---
PMRU: Goals Current Status: Nursing: Current Status Skin Deviations [left stump] Incision Skin Deviations [Midline Abrasion Coccyx] Skin Deviations [Left Abrasion Posterior Knee] Skin Deviations [Right Heel] Other Skin Deviation Description [ xeroform, telfa, and kerlex applied left stump] Skin Deviation Description [ redness, skin protectant applied Midline Coccyx] Skin Deviation Description [ xeroform, telfa, and kerlex applied Left Posterior Knee] Skin Deviation Description [ redness noted, skin protectant applied, shoe not Right Heel] worn except during PT Bladder Current Status continent, wears adult brief Bowel Current Status continent, lat BM 05/07/17, taking bowel meds Nutrition Current Status adequate Medication Current Status supervision, reducation Physical Therapy: Current Status Bed Mobility Assistance Supervision Transfer Moblility Assistance Mod Assist,2 or More Person Assist Transfer/Bed Mobility None,Slide Board Recommended Devices Transfer Mobility Comment max A fm w/c to bed and min A off bed Ambulation Assistance Unable Ambulation Assistive Devices Rolling Walker Manual Wheelchair Control/ Bilateral UE's Technique Wheelchair Propulsion Ability Standby Assistance Wheelchair Distance (ft) 150' Objective Comments patient W/C traiing initiated this date. patient has good mobility skills but needs further training on W/C operation. Occupational Therapy: Current Status Upper Body Dressing Supervision Lower Body Dressing Min Assist Bathing Min Assist Toileting Min Assist Toilet Transfer Mod Assist Shower Transfer Mod Assist Eating Independent Social Work: Current Status Discharge Plan return home with home care svs and family support Potential for Family Training pt's family is involved and supportive Anticipated Discharge Home Destination Discharge With home care svs and family support Nutrition: Current Status Monitoring PO adequate: eating 75-100% of meals. Last BM 05/09 . Skin intact; low risk for breakdown per Yoni 16. No changes to recommend at this time. Speech: Current Status Assessment Patient with slow, steady progress. He will continue to benefit from skilled speech-language pathology services to address cognitive-linguistic deficits in order to achieve optimal function, safety, and independence. No further formal need for swallowing dysfunction therapy is anticipated; however, [facility] will be available to intervene if warranted. Goals: Physical Therapy: Initial Goals Bed Mobility Assistance Independent Transfer Mobility Assistance Independent Transfer/Bed Mobility Rolling Walker Recommended Devices Ambulation Independent Ambulation Recommended Devices Rolling Walker Ambulation Distance 50 Wheelchair Propulsion Ability Independent Wheelchair Distance (ft) 150 Stairs Assistance Independent Number of Stairs 1 Physical Therapy: Updated Goals Bed Mobility Assistance Independent Transfer Mobility Assistance Independent Transfer/Bed Mobility Rolling Walker,Kalia Lift Recommended Devices Ambulation Assistance Independent Ambulation Distance (ft) 50 Wheelchair Propulsion Ability Independent Wheelchair Distance (ft) 150 Stairs Assistance Independent Number of Stairs 1 Occupational Therapy: Initial Goals Goals to be Completed in (Days 14 ) Upper Body Bathing Routine Supervision/Set Up Lower Body Bathing Routine Supervision/Set Up Upper Body Dressing Routine Supervision/Set Up Lower Body Dressing Routine Supervision/Set Up Toilet Hygeine and Clothing Modified Independent with Management Routine Toilet Transfer Routine Modified Independent with Step-In Shower Transfer Supervision/Set Up Routine Functional Transfers for ADL Modified Independent with Grooming Routine Supervision/Set Up Feeding Routine Independent Nursing: Goals Bladder Goal continent Bowel Goal continent, regular bowel movements Nutrition Goal 100% of all meals Medication Goal independent Nutrition: Goals Intervention Goals 1. adequate po intake to support healing of left BKA and promote gradual wt repletion 2. pt will tolerate least-restrictive diet texture without difficulty chewing 3. regulation of bowel pattern without constipation (or diarrhea) Speech: Goals Speech Goal 1 Dysphagia Goal 1 Comments LTG: The patient will demonstrate safe po of thin liquid and soft solids with no overt s/s of aspiraiton/penetration per [facility] observation/ RN report. ST. The patient will demonstrate safe po of soft solids and thin liquids with no overt s/s of aspiration/penetration over 10 trials each. Status; as of 05/07: The patient was seen while eating from his lunch tray. No oropharyngeal difficulties observed with soft and pureed solids; no oropharyngeal difficulties observed with thin liquids via sip by cup. Patient continues with habitual throat clear, which appears unrelated to swallowing function. At this point, formal swallowing dysfunction treatment is no longer warranted; however, will continue to monitor for any clinical s/s of penetration and/or aspiration during sessions and/ or reported by the patient and PMRU staff. Speech Goal 2 Cognitive-linguistic Speech Goal 2 Comments LTG: The patient will improve functional cognitive -linguistic skills for improved safety, function and independence for daily living tasks with use of strategies as needed. STGs: 1. The patient will complete immediate memory forward and backward for 3-5 digits at 80% accuracy. Status as of 05/10/17: The patient recalled 4 digits forward immediately after verbal presentation at 70% accuracy, improving to 90% accuracy with repetition of digits. The patient recalled 3 digits presented in reversed order immediately after verbal presentation at 30% accuracy, improving to 60% accuracy given repetition. Ongoing. 2. The patient will complete various functional short term memory tasks with use of strategies at 80% accuracy. Status: The patient was unable to recall memory strategies discussed previous date. The patient was reeducated on short term memory strategies and mutiple implementations of each strategy reviewed with written handout. The patient recalled 3 items with cues from [facility] [employer] for use of memory strategies primarily association and visualization with 1 minute delay without distractions at 80% accuracy. The patient recalled 2/3 items on 1/5 trials. The patient exhibits fluent expressive language; however, he is confused to place and time on occasion, however was oriented this date during [facility] session and demonstrates a slowed auditory processing and reduced attention, which can be best seen when he attempts to complete functional written daily activities. Ongoing. 3. The patient will complete functional sequencing tasks for 3-4 items at 80% accuracy. Status: Not addressed this date. 4. The patient will state/demonstrate viable solutions to functional daily problem scenarios at 80% accuracy. Status: The patient stated viable solutions to functional daily problem scenarios at 75% accuracy. 5.The patient will write functional sentences at 80% accuracy with min cues. 6. The patient will complete functional money and time management tasks at 90% accuracy with min cues. Status: The patient completed functiona basic money management tasks at 20% accuracy improving to 100% accuracy with moderate cues and repetitions. Patient with difficulty maintaining attention to task, multi-tasking, and keeping focus with auditory and transitional distractions (ie: writing math computations / answers on a scrap piece of paper, transitioning answer / information to worksheet). Social Work: Goals Discharge Plan return home with home care svs and family support Potential for Family Training pt's family is involved and supportive Anticipated Discharge Home Destination Discharge With home care svs and family support Care Plan: Care Plan ADL's - Improve/Maintain Start: 05/05/17 15:52 Freq: DAILY Status: Active Target: Activity Type Activity Date Activity User E-Sign Co-Sign Detail Recorded Client Recorded Date Recorded By Document 05/11/17 09:32 [id number] 05/11/17 09:32 [id number] 05/11/17 09:32 PMRU Outcome: ADL's/ADL Transfers Orders/Interventions Occupational Therapy Evaluation & Treatment Communication Tool in Patient Room Device Yes Patient to receive OT 5x/wk for 60-120 Therex min/day Self Care Management Group Therapy UE/LE ADL's with Assist Yes: setupA ADL Transfers with Assist Yes: Sagar except supervision for shower transfer Toileting: Transfers,Clothing Management Yes: Sagar ,Hygeine w/Assist Light Kitchen/Laundry w/Assist No Progression Toward Outcome/Goals Progressing Outcome/Goals Met Pt. requires increased cues during ADL routine to thorougly cleanse himself . Pt. continues to demosntrate LOB during transfers and LOB in standing . Communication-Improve/Maintain Start: 05/04/17 15:31 Freq: DAILY Status: Active Target: Activity Type Activity Date Activity User E-Sign Co-Sign Detail Recorded Client Recorded Date Recorded By Document 05/11/17 12:10 [id number] 05/11/17 12:11 [id number] 05/11/17 12:10 PMRU Outcome: Communication/Cognitive Status Outcome/Goals Makes Needs Known Effectively Other Outcomes/Goals The patient will complete various functional cognitive- lingusitic tasks at 90% accuracy. Safely tolerate the least restrictive diet consistencies without clinical s/s of penetration and/or aspiration. Progression Toward Outcomes/Goals Progressing Outcome/Goals Met Comment Functional cognitive- linguistic: Basic money management 20% accuracy; no cues, improved to 100% accuarcy; moderate cues and repetition. Problem solving 75% accuracy. Recall 3 pictured items at 80% accuracy per 1 minute delay without distractions with cues for use of memory strategies. Patient with difficulty maintaining attention to task, multi- tasking, and keeping focus with auditory and transitional distractions ( ie: writing math computations / answers on a scrap piece of paper, transitioning answer / information to worksheet). Ongoing. Swallowing Function Status; as of : The patient was seen while eating from his lunch tray. No oropharyngeal difficulties observed with soft and pureed solids; no oropharyngeal difficulties observed with thin liquids via sip by cup. Patient continues with habitual throat clear, which appears unrelated to swallowing function. At this point, formal swallowing dysfunction treatment is no longer warranted; however, therapists will continue to be available to intervene if warranted. Coping/Psych-Improve/Maintain Start: 05/04/17 14:05 Freq: DAILY Status: Active Target: Activity Type Activity Date Activity User E-Sign Co-Sign Detail Recorded Client Recorded Date Recorded By Document 05/11/17 10:40 [id number] 05/11/17 10:41 [id number] 05/11/17 10:40 PMRU Outcome: Coping/Psychosocial Coping Outcome/Goals Verbalization of Acceptance of Rehab Admit Willingness to Participate in Treatment Plan and Basic Needs Utilization of Available Support Systems Psychosocial Outcome/Goals Maintain/ Improve Emotional Health Demonstrates Knowledge of Healthy Coping Mechanisms Available Cooperate/ Participate in Plan Progression Toward Outcome/Goals - Progressing Coping Progression Toward Outcome/Goals - Progressing Psychosocial DVT Prophylaxis- Improve/Maintain Start: 05/04/17 14:05 Freq: DAILY Status: Active Target: Activity Type Activity Date Activity User E-Sign Co-Sign Detail Recorded Client Recorded Date Recorded By Document 05/11/17 10:40 [id number] 05/11/17 10:41 [id number] 05/11/17 10:40 PMRU Outcome: DVT Prophylaxis Outcome/Goals Remains Free of DVT Free of complications from current DVT Complies with DVT Prophylaxis /Treatment TEDS Stockings on Every AM, Off at HS Progression Toward Outcome/Goals Progressing Discharge Planning - Improve/Maintain Start: 05/04/17 14:05 Freq: DAILY Status: Active Target: Activity Type Activity Date Activity User E-Sign Co-Sign Detail Recorded Client Recorded Date Recorded By Document 05/11/17 10:40 [id number] 05/11/17 10:41 [id number] 05/11/17 10:40 PMRU Outcome: Discharge Planning Identify Patient Needs yes Update Patient Family No Outcome/Goals Demonstrates Understanding of Discharge Plan Progression Toward Outcome/Goals Progressing Education-Improve/Maintain Start: 05/04/17 14:05 Freq: DAILY Status: Active Target: Activity Type Activity Date Activity User E-Sign Co-Sign Detail Recorded Client Recorded Date Recorded By Document 05/11/17 10:40 [id number] 05/11/17 10:41 [id number] 05/11/17 10:40 PMRU Outcome: Education Outcome/Goals Demonstrate/ Verbalize Understanding of Written Discharge Instructions Demonstrates Skills Encourage Questions Progression Toward Outcome/Goals Progressing /GI-Improve/Maintain Start: 05/04/17 14:05 Freq: DAILY Status: Active Target: Activity Type Activity Date Activity User E-Sign Co-Sign Detail Recorded Client Recorded Date Recorded By Document 05/11/17 10:40 [id number] 05/11/17 10:41 [id number] 05/11/17 10:40 PMRU Outcome: Genitourinary/ Gastrointestinal Genitourinary- Outcome/Goals Maintain/ Achieve Urinary Continence Maintain/ Achieve Adequate Urinary Output Gastrointestinal-Outcome/Goals Maintain/ Achieve Bowel Regularity in Accordance with Pt's Baseline Prevent Constipation Laxatives as Ordered Progression Toward Outcome/Goals - Progressing Progression Toward Outcome/Goals - GI Progressing Outcome/Goals Met Comment pt using urinal Medication Administration Start: 05/04/17 14:05 Freq: DAILY Status: Active Target: Activity Type Activity Date Activity User E-Sign Co-Sign Detail Recorded Client Recorded Date Recorded By Document 05/11/17 10:40 [id number] 05/11/17 10:41 [id number] 05/11/17 10:40 PMRU Outcome: Medication Administration Assess Patient Knowledge/Teach Med Yes Education for all Meds Outcome/Goals Patient Independent with Medication Administration at Home Family/ Caregiver Administer Medications at Home Progression Towards Outcome/Goals Progressing Is Patient Going Home on Lovenox? No Mobility- Improve/Maintain Start: 05/06/17 16:48 Freq: DAILY Status: Active Target: Activity Type Activity Date Activity User E-Sign Co-Sign Detail Recorded Client Recorded Date Recorded By Document 05/10/17 12:24 [id number] 05/10/17 12:24 [id number] 05/10/17 12:24 PMRU Outcome: Mobility Physical Therapy Evaluation and Yes Treatment Activity OOB with Assistance Yes NWB Yes: LLE BKA Device Yes Assistance Yes Patient to be seen 5x/wk for 60-120 min/ Therex day for: Mobility Training Gait Training W/C Mobility Balance Outcome/Goals Maintain/ Achieve Baseline Mobility Status Improve Mobility Status Demonstrates Proper Use of Assistive Devices Free from Complications of Immobility Progression Toward Outcome/Goals Progressing Bed Mobility Yes: independent Transfers Yes: independent with rolling walker Gait x ft Yes: independnet with rolling walker 50' W/C Mobility x ft Yes: independent 150 Up/Down Stairs Yes: independent up/ down 1 step with 2 rails. Neurological- Improve/Maintain Start: 05/04/17 14:05 Freq: DAILY Status: Active Target: Activity Type Activity Date Activity User E-Sign Co-Sign Detail Recorded Client Recorded Date Recorded By Document 05/11/17 10:40 [id number] 05/11/17 10:41 [id number] 05/11/17 10:40 PMRU Outcome: Neurological Weakness/Aphasia Weakness Weakness/Aphasia Comment generalized weakness Outcome/Goals Prevent Avoidable Neurological Decline Maintain/ Improve Strength/ROM Progression Toward Outcome/Goals Progressing Nutrition/Swallowing- Improve/Maintain Start: 05/04/17 15:31 Freq: DAILY Status: Active Target: Activity Type Activity Date Activity User E-Sign Co-Sign Detail Recorded Client Recorded Date Recorded By Document 05/11/17 10:40 [id number] 05/11/17 10:41 [id number] 05/11/17 10:40 PMRU Outcome: Nutrition/Swallowing Outcome/Goals Demonstrates Adequate Hydration/ Prevents Dehydration Maintain/ Improve Nutritional Status Other Outcome/Goals The patient will demonstrate safe po of thin liquid and soft solids with no overt s /s of aspiration/ penetration Progression Toward Outcome/Goals Progressing Outcome/Goals Met Comment eating good percentage of meals Pain/Comfort- Improve/Maintain Start: 05/04/17 14:05 Freq: DAILY Status: Active Target: Activity Type Activity Date Activity User E-Sign Co-Sign Detail Recorded Client Recorded Date Recorded By Document 05/11/17 10:40 [id number] 05/11/17 10:41 [id number] 05/11/17 10:40 PMRU Outcome: Pain/Comfort Outcome/Goals Demonstrates Knowledge and Use of Available Comfort Measures Achieves Acceptable Comfort/Pain Level as Determined by Patient/Condit Maintain Comfort Level Allowing Patient to Fully Participate in Rehab Progression Toward Outcome/Goals Progressing Outcome/Goals Met Comment pain meds given with good relief Respiratory - Improve/Maintain Start: 05/04/17 14:05 Freq: DAILY Status: Active Target: Activity Type Activity Date Activity User E-Sign Co-Sign Detail Recorded Client Recorded Date Recorded By Document 05/11/17 10:40 [id number] 05/11/17 10:41 [id number] 05/11/17 10:40 PMRU Outcome: Respiratory Does Patient Have a Trach No Outcome/Goals Maintain/ Improve Activity Tolerance Prevent Pneumonia/ Atelectasis Remain Aspiration Free Progression Toward Outcome/Goals Progressing Safety- Improve/Maintain Start: 05/04/17 14:05 Freq: DAILY Status: Active Target: Activity Type Activity Date Activity User E-Sign Co-Sign Detail Recorded Client Recorded Date Recorded By Document 05/11/17 10:40 [id number] 05/11/17 10:41 [id number] 05/11/17 10:40 PMRU Outcome: Safety Outcome/Goals Remain Free of Injury or Harm Cooperates with Safety Measures for Least Restrictive Environment Prevent Falls/ Injury Progression Toward Outcome/Goals Not Progressing Outcome/Goals Met Comment PA in place, ringing appropriately Skin- Improve/Maintain Start: 05/04/17 14:05 Freq: DAILY Status: Active Target: Activity Type Activity Date Activity User E-Sign Co-Sign Detail Recorded Client Recorded Date Recorded By Document 05/11/17 10:40 [id number] 05/11/17 10:41 [id number] 05/11/17 10:40 PMRU Outcome: Skin Skin Risk Level High Skin Orders Dressing Change Air Mattress Spenco Boots Heels Off Bed Turn/Position q2hr While in Bed Outcome/Goals Maintain/ Improve Skin Intergrity Free from Decubitus Surgical Incisions Healing Progression Toward Outcome/Goals Progressing Medicine Note: Length of Stay: 2 1/2 weeks Anticipated Discharge Destination: Home Tentative Discharge Date: 05/28/17 Discharged to: D
[2017-05-11] MEDS: Warfarin TAB(*) 3 MG PO SCH (17:34)
[2017-05-11] MEDS: Atorvastatin* 20 MG TAB PO SCH (17:34)
[2017-05-11] MEDS: Senna TAB PO SCH (21:43)
[2017-05-12] MEDS: Diltiazem TAB* 30 MG PO SCH ×4 (00:14→17:59)
[2017-05-12] MEDS: Omeprazole CAP* 20 MG PO SCH (06:04)
[2017-05-12 06:30] LABS: Hematocrit 31 % (42-52); Hemoglobin 10.4 g/dl (14.0-18.0); Mean Corpuscular HGB Conc 33 g/dl (31-36); Mean Corpuscular Hemoglobin 28 pg (27-31); Mean Corpuscular Volume 86 fL (80-94); Mean Platelet Volume 8 um3 (7.4-10.4); Red Blood Count 3.67 10^6/ul (4.0-5.4); Red Cell Distribution Width 18 % (10.5-15); White Blood Count 3.9 10^3/ul (3.5-10.8)
[2017-05-12 06:46] LABS: Albumin 2.6 g/dL (3.2-5.2); BUN/Creatinine Ratio 32.6 (8-20); Calcium 8.1 mg/dL (8.6-10.3); EGFR African American 251.6 (>60); EGFR Non-African American 195.6 (>60); Globulin 2.6 g/dL (2-4); Potassium 4.1 mmol/L (3.5-5.0); Total Bilirubin 0.5 mg/dL (0.2-1.0); Total Protein 5.2 g/dL (6.4-8.9)
[2017-05-12] MEDS: Famotidine TAB* 20 MG PO SCH ×2 (09:57→21:54)
[2017-05-12] MEDS: Metoprolol Tartrate TAB* 50 mg PO SCH ×2 (09:57→21:51)
[2017-05-12] MEDS: Gabapentin CAP(*) 100 MG PO SCH ×3 (09:57→21:50)
[2017-05-12] MEDS: Citalopram TAB* 20 MG PO SCH (09:57)
[2017-05-12] MEDS: Magnesium Oxide TAB* 400 MG PO SCH ×2 (09:57→21:51)
[2017-05-12] MEDS: Fluticasone NASAL SPRAY 50MCG* 16 gm SPRAY BTL BOTH NARES SCH (09:58)
[2017-05-12] MEDS: Docusate CAP* 100 MG PO SCH ×2 (10:00→21:52)
[2017-05-12] MEDS: oxyCODONE TAB* 5 MG TAB PO PRN (10:01)
--- NOTE | 2017-05-12 15:05 | PN ---
Progress Note - Progress Note Date of Service: 05/12/17 Note: Mr. Walden was visited. Nursing staff reports his urine is foul smelling. Therapy notes read and reviewed. He has been having trouble making significant progress. Will have family meeting tomorrow to discuss situation with his ex- who lives with him to see how much help she can provide. He does not have the financial resources for enhanced care. Vital Signs Temp Pulse Resp BP Pulse Ox 98.1 F 97 16 99/53 93 05/12/17 05:56 05/12/17 05:56 05/12/17 14:01 05/12/17 05:56 05/12/17 05:56 Laboratory Results - last 24 hr 05/12/17 05/12/17 05/12/17 05:45 05:46 12:35 WBC 3.9 RBC 3.67 L Hgb 10.4 L Hct 31 L MCV 86 MCH 28 MCHC 33 RDW 18 H Plt Count 184 MPV 8 Neut % (Auto) 51.3 Lymph % (Auto) 36.6 Dewitt % (Auto) 9.4 H Eos % (Auto) 1.4 Baso % (Auto) 1.3 Absolute Neuts (auto) 2.0 Absolute Lymphs (auto) 1.4 Absolute Monos (auto) 0.4 Absolute Eos (auto) 0.1 Absolute Basos (auto) 0 Absolute Nucleated RBC 0.01 Nucleated RBC % 0.3 INR (Anticoag Therapy) 1.94 H Sodium 136 Potassium 4.1 Chloride 100 L Carbon Dioxide 29 Anion Gap 7 BUN 14 Creatinine 0.43 L Est GFR ( Amer) 251.6 Est GFR (Non-Af Amer) 195.6 BUN/Creatinine Ratio 32.6 H Glucose 89 Calcium 8.1 L Total Bilirubin 0.50 AST 14 ALT 14 Alkaline Phosphatase 91 Total Protein 5.2 L Albumin 2.6 L Globulin 2.6 Albumin/Globulin Ratio 1.0 EXAM: Lungs: CTA bilaterally HEART: S1, S2 ABDOMEN: Soft EXTREMITIES: Left BKA ASSESSMENT/PLAN: 1. Left BKA: Coninue PT/OT. May need knee immobilizer for left knee as he is developing flexion contracture. 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 Foul smelling urine: Send U/A 3. Atrial Fib: continue coumadin. Increase dose 4. DVT Prophylaxis: Coumadin 5. Progress/Disposition: Family Meeting
[2017-05-12] MEDS: Atorvastatin* 20 MG TAB PO SCH (16:44)
[2017-05-12] MEDS: Warfarin TAB(*) 5 MG PO SCH (16:44)
[2017-05-12 18:38] LABS: Urine Bilirubin Negative (Negative); Urine Glucose Negative (Negative); Urine Nitrite Negative (Negative)
[2017-05-12] MEDS: Senna TAB PO SCH (21:51)
[2017-05-13] MEDS: oxyCODONE TAB* 5 MG TAB PO PRN ×3 (00:02→19:17)
[2017-05-13] MEDS: Diltiazem TAB* 30 MG PO SCH ×4 (06:30→19:12)
[2017-05-13] MEDS: Omeprazole CAP* 20 MG PO SCH (06:30)
[2017-05-13] MEDS: Magnesium Oxide TAB* 400 MG PO SCH ×2 (09:58→20:52)
[2017-05-13] MEDS: Citalopram TAB* 20 MG PO SCH (09:58)
[2017-05-13] MEDS: Metoprolol Tartrate TAB* 50 mg PO SCH ×2 (09:58→20:51)
[2017-05-13] MEDS: Gabapentin CAP(*) 100 MG PO SCH ×3 (09:58→20:50)
[2017-05-13] MEDS: Fluticasone NASAL SPRAY 50MCG* 16 gm SPRAY BTL BOTH NARES SCH (10:00)
[2017-05-13] MEDS: Docusate CAP* 100 MG PO SCH ×2 (10:01→20:53)
[2017-05-13] MEDS: Famotidine TAB* 20 MG PO SCH ×2 (10:02→20:53)
--- NOTE | 2017-05-13 17:02 | PN ---
Progress Note - Progress Note Date of Service: 05/13/17 Note: A meeting was held from [phone] with Daryn and his ex- who would be providing the care for him if he goes home. I explained that Daryn has made progress since he has been here. He still has balance difficulties and given his left BKA this can lead to falls. He has made gains but still needs moderate assist for toilet transfers, and maximum assist for toileting. He transfers with moderate assistance. Walking is not really a goal until he gets a prosthesis. His stated she was fully committed to bringing him home and she did not want to consider subacute rehab at this time. It was recommended that she start family training next week. His tentative date of May 28 may be extended slightly if we can get him home; if Azra feels, after starting family training, it is too much, may need to go to [facility] for subacute. Vital Signs Temp Pulse Resp BP Pulse Ox 98.3 F 82 18 91/52 98 05/13/17 06:21 05/13/17 06:21 05/13/17 13:50 05/13/17 12:54 05/13/17 06:21 EXAM: LUNGS: CTA HEART: S1, S2 ABDOMEN: Soft EXTREMITIES: Left BKA, some eschar along borders Current Medications Acetaminophen (Tylenol Tab*) 650 mg PO Q6H PRN PRN Reason: FEVER/PAIN Last Admin: 05/06/17 03:06 Dose: 650 mg Alprazolam (Xanax Tab*) 0.25 mg PO BID PRN PRN Reason: ANXIETY Atorvastatin Calcium (Lipitor*) 20 mg PO 1700 [facility] Last Admin: 05/12/17 16:44 Dose: 20 mg Bisacodyl (Dulcolax Supp*) 10 mg MA DAILY PRN PRN Reason: CONSTIPATION Citalopram Hydrobromide (Celexa Tab*) 20 mg PO DAILY [facility] Last Admin: 05/13/17 09:58 Dose: 20 mg Cyanocobalamin (Vitamin B12 Inj *) 1,000 mcg IM Q30D [facility] Last Admin: 05/10/17 07:57 Dose: 1,000 mcg Diltiazem HCl (Cardizem Tab*) 30 mg PO Q6HR [facility] Last Admin: 05/13/17 12:53 Dose: Not Given Docusate Sodium (Colace Cap*) 100 mg PO BID [facility] Last Admin: 05/13/17 10:01 Dose: Not Given Famotidine (Pepcid Tab*) 20 mg PO BID [facility] Last Admin: 05/13/17 10:02 Dose: 20 mg Fluticasone Propionate (Flonase Nasal [place] 50mcg*) 2 spray BOTH NARES DAILY [facility] Last Admin: 05/13/17 10:00 Dose: 2 spray Gabapentin (Neurontin Cap(*)) 200 mg PO TID [facility] Last Admin: 05/13/17 13:47 Dose: 200 mg Magnesium Oxide (Magox 400 Tab*) 400 mg PO BID [facility] Last Admin: 05/13/17 09:58 Dose: 400 mg Metoprolol Tartrate (Lopressor Tab*) 50 mg PO Q12HR [facility] Last Admin: 05/13/17 09:58 Dose: 50 mg Omeprazole (Prilosec Cap*) 20 mg PO 0600 [facility] Last Admin: 05/13/17 06:30 Dose: 20 mg Oxycodone HCl (Roxycodone Tab*) 5 mg PO Q4H PRN PRN Reason: PAIN - MODERATE TO SEVERE Last Admin: 05/13/17 09:59 Dose: 5 mg Senna (Senokot Tab*) 2 tab PO BEDTIME [facility] Last Admin: 05/12/17 21:51 Dose: 2 tab Warfarin Sodium (Coumadin Tab(*)) 5 mg PO DAILY@1700 [facility] PRN Reason: Protocol Last Admin: 05/12/17 16:44 Dose: 5 mg ASSESSMENT/PLAN: 1. Left BKA: Coninue PT/OT. May need knee immobilizer for left knee as he is developing flexion contracture. 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 Foul smelling urine: U/A negative 3. Atrial Fib: continue coumadin 5 mg. INR in am. Cardizem/Lopressor 4. DVT Prophylaxis: Coumadin 5. Progress/Disposition: As above family training to try to get him home.
[2017-05-13] MEDS: Atorvastatin* 20 MG TAB PO SCH (17:24)
[2017-05-13] MEDS: Warfarin TAB(*) 5 MG PO SCH (17:24)
[2017-05-13] MEDS: Senna TAB PO SCH (20:51)
[2017-05-14] MEDS: Diltiazem TAB* 30 MG PO SCH ×5 (00:07→23:54)
[2017-05-14] MEDS: Omeprazole CAP* 20 MG PO SCH (06:10)
[2017-05-14] MEDS: Fluticasone NASAL SPRAY 50MCG* 16 gm SPRAY BTL BOTH NARES SCH (08:41)
[2017-05-14] MEDS: Citalopram TAB* 20 MG PO SCH (08:42)
[2017-05-14] MEDS: Metoprolol Tartrate TAB* 50 mg PO SCH ×2 (08:42→20:11)
[2017-05-14] MEDS: Gabapentin CAP(*) 100 MG PO SCH ×3 (08:42→20:10)
[2017-05-14] MEDS: Famotidine TAB* 20 MG PO SCH ×2 (08:42→20:11)
[2017-05-14] MEDS: oxyCODONE TAB* 5 MG TAB PO PRN ×4 (08:42→23:54)
[2017-05-14] MEDS: Docusate CAP* 100 MG PO SCH ×3 (08:42→20:15)
[2017-05-14] MEDS: Magnesium Oxide TAB* 400 MG PO SCH ×2 (08:42→20:10)
--- NOTE | 2017-05-14 11:32 | PN ---
Progress Note - Progress Note Date of Service: 05/14/17 Note: Patient is tolerating yolk spray drier better today but he has not allowed the nurses to put it on all the way. It is not painful like it was the last few days. He has at times refused to wear the knee immobilizer. No new concerns. He denies chest pain, shortness of breath or abdominal pain. Therapy and nursing notes have been reviewed. Acetaminophen (Tylenol Tab*) 650 mg PO Q6H PRN PRN Reason: FEVER/PAIN Last Admin: 05/06/17 03:06 Dose: 650 mg Alprazolam (Xanax Tab*) 0.25 mg PO BID PRN PRN Reason: ANXIETY Atorvastatin Calcium (Lipitor*) 20 mg PO 1700 REPLACED BY [facility] Last Admin: 05/13/17 17:24 Dose: 20 mg Bisacodyl (Dulcolax Supp*) 10 mg [place] DAILY PRN PRN Reason: CONSTIPATION Citalopram Hydrobromide (Celexa Tab*) 20 mg PO DAILY REPLACED BY [facility] Last Admin: 05/14/17 08:42 Dose: 20 mg Cyanocobalamin (Vitamin B12 Inj *) 1,000 mcg IM Q30D REPLACED BY [facility] Last Admin: 05/10/17 07:57 Dose: 1,000 mcg Diltiazem HCl (Cardizem Tab*) 30 mg PO Q6HR REPLACED BY [facility] Last Admin: 05/14/17 06:10 Dose: 30 mg Docusate Sodium (Colace Cap*) 100 mg PO BID REPLACED BY [facility] Last Admin: 05/14/17 08:42 Dose: 100 mg Famotidine (Pepcid Tab*) 20 mg PO BID REPLACED BY [facility] Last Admin: 05/14/17 08:42 Dose: 20 mg Fluticasone Propionate (Flonase Nasal [place] 50mcg*) 2 spray BOTH NARES DAILY REPLACED BY [facility] Last Admin: 05/14/17 08:41 Dose: 2 spray Gabapentin (Neurontin Cap(*)) 200 mg PO TID REPLACED BY [facility] Last Admin: 05/14/17 08:42 Dose: 200 mg Magnesium Oxide (Magox 400 Tab*) 400 mg PO BID REPLACED BY [facility] Last Admin: 05/14/17 08:42 Dose: 400 mg Metoprolol Tartrate (Lopressor Tab*) 50 mg PO Q12HR REPLACED BY [facility] Last Admin: 05/14/17 08:42 Dose: 50 mg Omeprazole (Prilosec Cap*) 20 mg PO 0600 REPLACED BY [facility] Last Admin: 05/14/17 06:10 Dose: 20 mg Oxycodone HCl (Roxycodone Tab*) 5 mg PO Q4H PRN PRN Reason: PAIN - MODERATE TO SEVERE Last Admin: 05/14/17 08:42 Dose: 5 mg Senna (Senokot Tab*) 2 tab PO BEDTIME REPLACED BY [facility] Last Admin: 05/13/17 20:51 Dose: 2 tab Warfarin Sodium (Coumadin Tab(*)) 5 mg PO DAILY@1700 REPLACED BY [facility] PRN Reason: Protocol Last Admin: 05/13/17 17:24 Dose: 5 mg Temp Pulse Resp BP Pulse Ox 99.2 F 76 18 108/55 96 05/14/17 06:09 05/14/17 06:09 05/14/17 10:42 05/14/17 06:09 05/14/17 10:58 PE: General - no acute distress. Alert and appropriate. Lungs - clear bilaterally. Heart: irregularly irregular Abdomen: positive bowel sounds, soft, non-tender and non-distended Ext: Left stump yolk spray drier on 3[address] Knee immobilizer off. Knee with slight flexion. Right leg without edema and skin intact. Labs: INR pending today. ASSESSMENT/PLAN: 71yo man with peripheral vascular disease s/p left BKA complicated by respiratory failure, gastric ulcerations and atrial fibrillation. 1. Left BKA: Coninue PT/OT. Knee immobilizer for left knee flexion contracture. Keep knee in extension at rest. Stretch in PT. Increase tolerance for stump yolk spray drier 2. Foul smelling urine: U/A negative in past. 3. Atrial Fib: continue coumadin 5 mg. INR pending today. Cardizem/Lopressor 4. DVT Prophylaxis: Coumadin 5. Advanced Directives: Full code. Daughter is HCP if needed. 6. Disposition: Family training with next week to try to get him home.
[2017-05-14] MEDS: Atorvastatin* 20 MG TAB PO SCH (16:05)
[2017-05-14] MEDS ORDERED: Warfarin TAB(*) 3 MG PO SCH (17:00)
[2017-05-14] MEDS: Senna TAB PO SCH (20:10)
[2017-05-15] MEDS: Omeprazole CAP* 20 MG PO SCH (05:46)
[2017-05-15] MEDS: Diltiazem TAB* 30 MG PO SCH ×3 (05:46→16:55)
[2017-05-15] MEDS: Metoprolol Tartrate TAB* 50 mg PO SCH ×2 (08:51→21:48)
[2017-05-15] MEDS: Citalopram TAB* 20 MG PO SCH (08:51)
[2017-05-15] MEDS: Magnesium Oxide TAB* 400 MG PO SCH ×2 (08:51→21:48)
[2017-05-15] MEDS: Docusate CAP* 100 MG PO SCH ×2 (08:51→22:38)
[2017-05-15] MEDS: Fluticasone NASAL SPRAY 50MCG* 16 gm SPRAY BTL BOTH NARES SCH (08:51)
[2017-05-15] MEDS: Gabapentin CAP(*) 100 MG PO SCH ×3 (08:51→21:48)
[2017-05-15] MEDS: Famotidine TAB* 20 MG PO SCH ×2 (08:52→21:48)
[2017-05-15] MEDS: oxyCODONE TAB* 5 MG TAB PO PRN ×2 (10:24→16:59)
--- NOTE | 2017-05-15 10:49 | PN ---
Progress Note - Progress Note Date of Service: 05/15/17 Note: Patient visited. Nursing and therapy notes reviewed. Took off director of math around midnight last night when it felt too tight. Was freddy wrapped after that. Has not worn knee immobilizer yet, but is willing to try today. No chest pain, shortness of breath or abdominal pain. Temp Pulse Resp BP Pulse Ox 99.2 F 84 18 113/64 96 05/15/17 05:44 05/15/17 05:48 05/15/17 10:24 05/15/17 05:44 05/15/17 05:44 PE: General - no acute distress. Alert and appropriate. Lungs - clear bilaterally. Heart: irregularly irregular Abdomen: positive bowel sounds, soft, non-tender and non-distended Ext: Left BKA. Dressing removed with nursing. Note healing abrasions posteriorly and healing anterior incision with sutures. There is some darkened corona areas mid-incision which may be pre-necrotic. No erythema or significant drainage. It otherwise looks quite good. Redressed and director of math applied, then knee immobilizer. Once everything was in place he thought it felt surprisingly ok. Knee with slight flexion again noted before knee immobilizer put on and he was educated on purpose of knee immobilizer. Right leg without edema and skin intact. Labs: INR on 05/14/17 was 1.87 and coumadin was increased. INR pending today ( initial sample was hemolyzed and it needs to be redrawn). ASSESSMENT/PLAN: 71yo man with peripheral vascular disease s/p left BKA complicated by respiratory failure, gastric ulcerations and atrial fibrillation. 1. Left BKA: Continue PT/OT. Knee immobilizer for left knee flexion contracture. Keep knee in extension at rest. Stretch in PT. Increase tolerance for stump director of math 2. Foul smelling urine: U/A negative in past. 3. Atrial Fib: continue coumadin 6 mg. INR pending today. Cardizem/Lopressor 4. DVT Prophylaxis: Coumadin 5. Advanced Directives: Full code. Daughter is HCP if needed. 6. Disposition: Family training with next week to try to get him home.
[2017-05-15] MEDS: Atorvastatin* 20 MG TAB PO SCH (16:56)
[2017-05-15] MEDS: Senna TAB PO SCH (22:38)
[2017-05-16] MEDS: Diltiazem TAB* 30 MG PO SCH ×4 (00:10→17:11)
[2017-05-16] MEDS: Omeprazole CAP* 20 MG PO SCH (05:39)
[2017-05-16] MEDS: oxyCODONE TAB* 5 MG TAB PO PRN ×3 (06:55→20:53)
[2017-05-16] MEDS: Citalopram TAB* 20 MG PO SCH (08:43)
[2017-05-16] MEDS: Gabapentin CAP(*) 100 MG PO SCH ×3 (08:43→20:53)
[2017-05-16] MEDS: Fluticasone NASAL SPRAY 50MCG* 16 gm SPRAY BTL BOTH NARES SCH (08:43)
[2017-05-16] MEDS: Magnesium Oxide TAB* 400 MG PO SCH ×2 (08:43→20:54)
[2017-05-16] MEDS: Metoprolol Tartrate TAB* 50 mg PO SCH ×2 (08:44→20:54)
[2017-05-16] MEDS: Docusate CAP* 100 MG PO SCH ×2 (08:44→20:53)
[2017-05-16] MEDS: Famotidine TAB* 20 MG PO SCH ×2 (08:44→20:54)
[2017-05-16] MEDS ORDERED: Senna TAB PO PRN (09:50)
--- NOTE | 2017-05-16 11:09 | PN ---
Progress Note - Progress Note Date of Service: 05/16/17 Note: Patient visited. Nursing and therapy notes reviewed. He had to take the cupboard builder off around 5pm yesterday, but then put it back on lateral with the knee immobilizer for the night. Bowel meds held for loose stool. No chest pain , shortness of breath or abdominal pain. Coumadin held last night for INR of 3.92. Active Medications Generic Name Dose Route Start Last Admin Trade Name Freq PRN Reason Stop Dose Admin Acetaminophen 650 mg 05/04/17 13:14 05/06/17 03:06 Tylenol Tab* PO 650 mg Q6H PRN Administration FEVER/PAIN Alprazolam 0.25 mg 05/04/17 13:33 Xanax Tab* PO BID PRN ANXIETY Atorvastatin Calcium 20 mg 05/04/17 17:00 05/15/17 16:56 Lipitor* PO 20 mg 1700 [facility] Administration Bisacodyl 10 mg 05/04/17 13:14 Dulcolax Supp* [place] DAILY PRN CONSTIPATION Citalopram Hydrobromide 20 mg 05/05/17 09:00 05/16/17 08:43 Celexa Tab* PO 20 mg DAILY [facility] Administration Cyanocobalamin 1,000 mcg 05/10/17 09:00 05/10/17 07:57 Vitamin B12 Inj * IM 1,000 mcg Q30D [facility] Administration Diltiazem HCl 30 mg 05/04/17 18:00 05/16/17 05:39 Cardizem Tab* PO 30 mg Q6HR [facility] Administration Docusate Sodium 100 mg 05/16/17 09:51 Colace Cap* PO BID [facility] Famotidine 20 mg 05/04/17 21:00 05/16/17 08:44 Pepcid Tab* PO 20 mg BID [facility] Administration Fluticasone Propionate 2 spray 05/05/17 09:00 05/16/17 08:43 Flonase Nasal [place] 50mcg* BOTH NARES 2 spray DAILY [facility] Administration Gabapentin 200 mg 05/04/17 14:00 05/16/17 08:43 Neurontin Cap(*) PO 200 mg TID [facility] Administration Magnesium Oxide 400 mg 05/04/17 21:00 05/16/17 08:43 Magox 400 Tab* PO 400 mg BID [facility] Administration Metoprolol Tartrate 50 mg 05/09/17 21:00 05/16/17 08:44 Lopressor Tab* PO 50 mg Q12HR [facility] Administration Omeprazole 20 mg 05/07/17 06:00 05/16/17 05:39 Prilosec Cap* PO 20 mg 0600 [facility] Administration Oxycodone HCl 5 mg 05/04/17 13:25 05/16/17 06:55 Roxycodone Tab* PO 5 mg Q4H PRN Administration PAIN - MODERATE TO SEVERE Senna 2 tab 05/16/17 09:50 Senokot Tab* PO BEDTIME PRN CONSTIPATION Warfarin Sodium 4 mg 05/16/17 17:00 Coumadin Tab(*) PO DAILY@1700 [facility] Protocol Temp Pulse Resp BP Pulse Ox 98.0 F 90 18 113/69 98 05/16/17 05:41 05/16/17 08:47 05/16/17 08:45 05/16/17 05:41 05/16/17 09:00 PE: General - no acute distress. Alert and appropriate. Lungs - clear bilaterally. Heart: irregularly irregular Abdomen: positive bowel sounds, soft, non-tender and non-distended Ext: Left BKA. Dressing removed with nursing. Minimal serous drainage on dressing. Looks like it is coming from small area of denuded skin. Note healing abrasions posteriorly and healing anterior incision with sutures. There are some darkened corona areas mid-incision which may be pre-necrotic but are stable and a little better than yesterday. No erythema. He can fully extend the knee. Redressed and cupboard builder applied, then knee immobilizer. Right leg without edema and skin intact. Labs: INR on 05/15/17 was 3.92 and coumadin was held. INR today is 2.69. ASSESSMENT/PLAN: 71yo man with peripheral vascular disease s/p left BKA complicated by respiratory failure, gastric ulcerations and atrial fibrillation. 1. Left BKA: Continue PT/OT. Knee immobilizer to prevent knee flexion contracture. Keep knee in extension at rest. Stretch in PT. Increase tolerance for stump cupboard builder 2. Foul smelling urine: U/A negative in past. 3. Atrial Fib: restart coumadin 4 mg qpm. INR q m/w/f. Cardizem/Lopressor 4. DVT Prophylaxis: Coumadin 5. Loose stools: change senna to prn and will hold colace for loose stools. 6. Advanced Directives: Full code. Daughter is HCP if needed. 7. Disposition: Family training with this week to try to get him home.
[2017-05-16] MEDS: Warfarin TAB(*) 4 MG PO SCH (16:36)
[2017-05-16] MEDS: Atorvastatin* 20 MG TAB PO SCH (16:36)
[2017-05-17] MEDS: Diltiazem TAB* 30 MG PO SCH ×5 (00:10→23:44)
[2017-05-17] MEDS: oxyCODONE TAB* 5 MG TAB PO PRN ×4 (04:43→23:41)
[2017-05-17] MEDS: Omeprazole CAP* 20 MG PO SCH (06:37)
[2017-05-17] MEDS: Metoprolol Tartrate TAB* 50 mg PO SCH ×2 (09:21→21:22)
[2017-05-17] MEDS: Citalopram TAB* 20 MG PO SCH (09:22)
[2017-05-17] MEDS: Gabapentin CAP(*) 100 MG PO SCH ×3 (09:22→21:23)
[2017-05-17] MEDS: Fluticasone NASAL SPRAY 50MCG* 16 gm SPRAY BTL BOTH NARES SCH (09:22)
[2017-05-17] MEDS: Magnesium Oxide TAB* 400 MG PO SCH ×2 (09:22→21:22)
[2017-05-17] MEDS: Famotidine TAB* 20 MG PO SCH ×2 (09:22→21:22)
[2017-05-17] MEDS: Docusate CAP* 100 MG PO SCH ×2 (09:24→21:22)
--- NOTE | 2017-05-17 17:25 | PN ---
Progress Note - Progress Note Date of Service: 05/17/17 Note: Patient visited. Therapy notes read and reviewed. He did better with slide board transfers today. Wearing knee immobilizer and knee looks ok. Having some trouble tolerating diamond setter. Current Medications Acetaminophen (Tylenol Tab*) 650 mg PO Q6H PRN PRN Reason: FEVER/PAIN Last Admin: 05/06/17 03:06 Dose: 650 mg Alprazolam (Xanax Tab*) 0.25 mg PO BID PRN PRN Reason: ANXIETY Atorvastatin Calcium (Lipitor*) 20 mg PO 1700 [facility] Last Admin: 05/16/17 16:36 Dose: 20 mg Bisacodyl (Dulcolax Supp*) 10 mg [place] DAILY PRN PRN Reason: CONSTIPATION Citalopram Hydrobromide (Celexa Tab*) 20 mg PO DAILY [facility] Last Admin: 05/17/17 09:22 Dose: 20 mg Cyanocobalamin (Vitamin B12 Inj *) 1,000 mcg IM Q30D [facility] Last Admin: 05/10/17 07:57 Dose: 1,000 mcg Diltiazem HCl (Cardizem Tab*) 30 mg PO Q6HR [facility] Last Admin: 05/17/17 13:30 Dose: Not Given Docusate Sodium (Colace Cap*) 100 mg PO BID [facility] Last Admin: 05/17/17 09:24 Dose: Not Given Famotidine (Pepcid Tab*) 20 mg PO BID [facility] Last Admin: 05/17/17 09:22 Dose: 20 mg Fluticasone Propionate (Flonase Nasal [place] 50mcg*) 2 spray BOTH NARES DAILY [facility] Last Admin: 05/17/17 09:22 Dose: 2 spray Gabapentin (Neurontin Cap(*)) 200 mg PO TID [facility] Last Admin: 05/17/17 14:07 Dose: 200 mg Magnesium Oxide (Magox 400 Tab*) 400 mg PO BID [facility] Last Admin: 05/17/17 09:22 Dose: 400 mg Metoprolol Tartrate (Lopressor Tab*) 50 mg PO Q12HR [facility] Last Admin: 05/17/17 09:21 Dose: 50 mg Omeprazole (Prilosec Cap*) 20 mg PO 0600 [facility] Last Admin: 05/17/17 06:37 Dose: 20 mg Oxycodone HCl (Roxycodone Tab*) 5 mg PO Q4H PRN PRN Reason: PAIN - MODERATE TO SEVERE Last Admin: 05/17/17 09:23 Dose: 5 mg Senna (Senokot Tab*) 2 tab PO BEDTIME PRN PRN Reason: CONSTIPATION Warfarin Sodium (Coumadin Tab(*)) 4 mg PO DAILY@1700 [facility] PRN Reason: Protocol Last Admin: 05/16/17 16:36 Dose: 4 mg Laboratory Results - last 24 hr 05/17/17 04:39 INR (Anticoag Therapy) 2.55 H Vital Signs Temp Pulse Resp BP Pulse Ox 98.5 F 117 14 96/59 96 05/17/17 15:14 05/17/17 15:14 05/17/17 16:40 05/17/17 15:14 05/17/17 15:14 EXAM: HEENT: EOMI, LUNGS: Clear Bilat HEART: Reg rhythm ABDOMEN: Soft EXTREMITIES: Left BKA ASSESSMENT/PLAN: 1. Left BKA: Coninue PT/OT. Use knee immobilizer for left knee as he is developing flexion contracture. Stump diamond setter as tolerated 2. Atrial Fib: continue coumadin 5 mg. INR Wednesday. Cardizem/Lopressor 4. DVT Prophylaxis: Coumadin 5. Progress/Disposition: Family training starts tomorrow to try to get him home.
[2017-05-17] MEDS: Warfarin TAB(*) 4 MG PO SCH (17:27)
[2017-05-17] MEDS: Atorvastatin* 20 MG TAB PO SCH (17:28)
[2017-05-18] MEDS: Omeprazole CAP* 20 MG PO SCH (06:09)
[2017-05-18] MEDS: Diltiazem TAB* 30 MG PO SCH ×4 (06:11→17:58)
[2017-05-18] MEDS: Magnesium Oxide TAB* 400 MG PO SCH ×2 (10:07→20:08)
[2017-05-18] MEDS: Metoprolol Tartrate TAB* 50 mg PO SCH ×2 (10:07→20:08)
[2017-05-18] MEDS: Citalopram TAB* 20 MG PO SCH (10:07)
[2017-05-18] MEDS: Docusate CAP* 100 MG PO SCH ×2 (10:07→20:08)
[2017-05-18] MEDS: Fluticasone NASAL SPRAY 50MCG* 16 gm SPRAY BTL BOTH NARES SCH (10:08)
[2017-05-18] MEDS: Famotidine TAB* 20 MG PO SCH ×2 (10:08→20:08)
[2017-05-18] MEDS: Gabapentin CAP(*) 100 MG PO SCH ×3 (10:08→20:07)
--- NOTE | 2017-05-18 12:50 | PMRUTEAM ---
PMRU: Goals Current Status: Nursing: Current Status Skin Deviations [left stump] Incision Skin Deviations [Midline Other Coccyx] Skin Deviations [Left Abrasion Posterior Knee] Skin Deviations [Right Heel] Other Skin Deviation Description [ scant old bloody drainage. new drsg applied. 2 red left stump] areas behind stump noted Skin Deviation Description [ redness. barrier applied Midline Coccyx] Skin Deviation Description [ xeroform, telfa, and kerlex applied Left Posterior Knee] Skin Deviation Description [ pink. elevated on pillow Right Heel] Bladder Current Status incontinent this am. Bowel Current Status last bm 05/15 Nutrition Current Status adequate Medication Current Status supervision, reducation Physical Therapy: Current Status Bed Mobility Assistance Not Tested Transfer Moblility Assistance Min Assist Transfer/Bed Mobility Slide Board Recommended Devices Transfer Mobility Comment max A fm w/c to bed and min A off bed Ambulation Assistance Unable Ambulation Assistive Devices Railings Number of Feet Patient 4 Ambulated Manual Wheelchair Control/ Bilateral UE's Technique Wheelchair Propulsion Ability Standby Assistance Wheelchair Distance (ft) 150 Objective Comments keisha continues to demosntrate improving mobility in W/C Occupational Therapy: Current Status Upper Body Dressing Supervision Lower Body Dressing Supervision Bathing Min Assist Toileting Mod Assist Toilet Transfer Min Assist Shower Transfer Min Assist,Mod Assist Eating Independent Rec Therapy: Current Status Summary of Assessment and RT assessment complete and pt. is aware of RT Clinical Impression services. Pt. open to continued visits although pt. observed resting most afternoons. Treatment Goals Pt. will engage in leisure activities while on the unit. Treatment Plan Provide RT services and encourage involvement. Social Work: Current Status Discharge Plan return home with home care svs and family support Potential for Family Training Pat participated in family training today Anticipated Discharge Home Destination Discharge With home care svs and family support Nutrition: Current Status Monitoring Pt not in room when visited today. Provided handout on Coumadin/Vit K interaction on bedside table with contact info if pt has questions. Pt eating well: 75-100% of meals, eating independently. Regular BMs per stool record. No new wt to report; rec check wt weekly. Speech: Current Status Assessment Patient demonstrated slight increase in accuracy for sequencing this date when steps were written down; however, he continues to have difficulty with functional time management problems. No further formal need for swallowing dysfunction therapy is anticipated; however, CARE PROCESS MANAGER will be available to intervene if warranted. Goals: Physical Therapy: Initial Goals Bed Mobility Assistance Independent Transfer Mobility Assistance Independent Transfer/Bed Mobility Rolling Walker Recommended Devices Ambulation Independent Ambulation Recommended Devices Rolling Walker Ambulation Distance 50 Wheelchair Propulsion Ability Independent Wheelchair Distance (ft) 150 Stairs Assistance Independent Number of Stairs 1 Physical Therapy: Updated Goals Bed Mobility Assistance Independent Transfer Mobility Assistance Independent Transfer/Bed Mobility Rolling Walker,Kalia Lift Recommended Devices Ambulation Assistance Independent Ambulation Distance (ft) 50 Wheelchair Propulsion Ability Independent Wheelchair Distance (ft) 150 Stairs Assistance Independent Number of Stairs 1 Occupational Therapy: Initial Goals Goals to be Completed in (Days 3 weeks ) Upper Body Bathing Routine Supervision/Set Up Lower Body Bathing Routine Supervision/Set Up Upper Body Dressing Routine Supervision/Set Up Lower Body Dressing Routine Supervision/Set Up Toilet Hygeine and Clothing Modified Independent with Management Routine Toilet Transfer Routine Modified Independent with Step-In Shower Transfer Supervision/Set Up Routine Functional Transfers for ADL Modified Independent with Grooming Routine Supervision/Set Up Feeding Routine Independent Nursing: Goals Bladder Goal continent Bowel Goal continent, regular bowel movements Nutrition Goal 100% of all meals Medication Goal independent Nutrition: Goals Intervention Goals 1. adequate po intake to support healing of left BKA and promote gradual wt repletion 2. pt will tolerate least-restrictive diet texture without difficulty chewing 3. regulation of bowel pattern without constipation (or diarrhea) Speech: Goals Speech Goal 1 Dysphagia Goal 1 Comments LTG: The patient will demonstrate safe po of thin liquid and soft solids with no overt s/s of aspiraiton/penetration per CARE PROCESS MANAGER observation/ RN report. ST. The patient will demonstrate safe po of soft solids and thin liquids with no overt s/s of aspiration/penetration over 10 trials each. Status; as of 05/07: The patient was seen while eating from his lunch tray. No oropharyngeal difficulties observed with soft and pureed solids; no oropharyngeal difficulties observed with thin liquids via sip by cup. Patient continues with habitual throat clear, which appears unrelated to swallowing function. At this point, formal swallowing dysfunction treatment is no longer warranted; however, will continue to monitor for any clinical s/s of penetration and/or aspiration during sessions and/ or reported by the patient and PMRU staff. Speech Goal 2 Cognitive-linguistic Speech Goal 2 Comments LTG: The patient will improve functional cognitive -linguistic skills for improved safety, function and independence for daily living tasks with use of strategies as needed. STGs: 1. The patient will complete immediate memory forward and backward for 3-5 digits at 80% accuracy. Status as of 05/17/17: The patient recalled 4 related words forward immediately after verbal presentation at 30% accuracy, without improvements with repetition or categorical cue.The patient recalled 3 related words immediately after verbal presentation at 30% accuracy, improving to 80% accuracy with 2 repetitions. Ongoing. 2. The patient will complete various functional short term memory tasks with use of strategies at 80% accuracy. Status as of 05/17/17: The patient recalled 1/4 memory strategies discussed previous session, improving to 2/4 given mneumonic and further improving to 4/4 given examples of implementation of strategies. The patient was reeducated on remaining short term memory strategies and mutiple implementations of each strategy reviewed with written handout. The patient exhibits fluent expressive language; however, he is confused to place and time on occasion specifically noted today and demonstrates a slowed auditory processing and reduced attention, which can be best seen when he attempts to complete functional recall, sequencing and other daily activities. Ongoing. 3. The patient will complete functional sequencing tasks for 3-4 items at 80% accuracy. Status: The patient sequenced 5 written step at 50% accuracy without cues, improving to 90% accuracy with minimal verbal cues from CARE PROCESS MANAGER Ongoing 4. The patient will state/demonstrate viable solutions to functional daily problem scenarios at 80% accuracy. Status as of 05/14/17: The patient stated problems given visual picture scenario cards at 85% accuracy, improving to 90% accuracy with min cues. The patient stated viable solutions to functional daily problem scenarios at 85% accuracy with increased time. 5.The patient will write functional sentences at 80% accuracy with min cues. Status as of 05/12/17: The patient wrote functional spontaneous sentences at 80% accuracy and sentences to dictation at 80% accuracy with repetition x1 with increased time. Ongoing 6. The patient will complete functional money and time management tasks at 90% accuracy with min cues. Status: Patient completed time word problems with 40% accuracy (both read aloud by CARE PROCESS MANAGER and read by patient) with an increase in required time. Patient required moderate-maximum cues for completion of task. Status as of 05/11/17: The patient completed functiona basic money management tasks at 20% accuracy improving to 100% accuracy with moderate cues and repetitions. Social Work: Goals Discharge Plan return home with home care svs and family support Potential for Family Training Pat participated in family training today Anticipated Discharge Home Destination Discharge With home care svs and family support Care Plan: See Nursing notes Medicine Note: Length of Stay: 2 weeks Anticipated Discharge Destination: Home Tentative Discharge Date: 06/01/17 Discharged to: D
--- NOTE | 2017-05-18 13:29 | PN ---
Progress Note - Progress Note Date of Service: 05/18/17 Note: Daryn visited. He was discussed in interdisciplinary team rounds. He has definitely made improvements in strength and functionality, but still requires assistance in toileting. It is unclear how much help Azra can provide. Azra and her daughter are going to see [facility]. He may be getting areas of pressure on the back of his left leg from the knee immobilizer. Current Medications Acetaminophen (Tylenol Tab*) 650 mg PO Q6H PRN PRN Reason: FEVER/PAIN Last Admin: 05/06/17 03:06 Dose: 650 mg Alprazolam (Xanax Tab*) 0.25 mg PO BID PRN PRN Reason: ANXIETY Atorvastatin Calcium (Lipitor*) 20 mg PO 1700 [facility] Last Admin: 05/17/17 17:28 Dose: 20 mg Bisacodyl (Dulcolax Supp*) 10 mg [place] DAILY PRN PRN Reason: CONSTIPATION Citalopram Hydrobromide (Celexa Tab*) 20 mg PO DAILY [facility] Last Admin: 05/18/17 10:07 Dose: 20 mg Cyanocobalamin (Vitamin B12 Inj *) 1,000 mcg IM Q30D [facility] Last Admin: 05/10/17 07:57 Dose: 1,000 mcg Diltiazem HCl (Cardizem Tab*) 30 mg PO Q6HR [facility] Last Admin: 05/18/17 13:19 Dose: 30 mg Docusate Sodium (Colace Cap*) 100 mg PO BID [facility] Last Admin: 05/18/17 10:07 Dose: 100 mg Famotidine (Pepcid Tab*) 20 mg PO BID [facility] Last Admin: 05/18/17 10:08 Dose: 20 mg Fluticasone Propionate (Flonase Nasal [place] 50mcg*) 2 spray BOTH NARES DAILY [facility] Last Admin: 05/18/17 10:08 Dose: 2 spray Gabapentin (Neurontin Cap(*)) 200 mg PO TID [facility] Last Admin: 05/18/17 13:19 Dose: 200 mg Magnesium Oxide (Magox 400 Tab*) 400 mg PO BID [facility] Last Admin: 05/18/17 10:07 Dose: 400 mg Metoprolol Tartrate (Lopressor Tab*) 50 mg PO Q12HR [facility] Last Admin: 05/18/17 10:07 Dose: 50 mg Omeprazole (Prilosec Cap*) 20 mg PO 0600 [facility] Last Admin: 05/18/17 06:09 Dose: 20 mg Oxycodone HCl (Roxycodone Tab*) 5 mg PO Q4H PRN PRN Reason: PAIN - MODERATE TO SEVERE Last Admin: 05/17/17 23:41 Dose: 5 mg Senna (Senokot Tab*) 2 tab PO BEDTIME PRN PRN Reason: CONSTIPATION Warfarin Sodium (Coumadin Tab(*)) 4 mg PO DAILY@1700 [facility] PRN Reason: Protocol Last Admin: 05/17/17 17:27 Dose: 4 mg Vital Signs Temp Pulse Resp BP Pulse Ox 98.4 F 92 18 110/49 98 05/18/17 06:08 05/18/17 12:10 05/18/17 13:22 05/18/17 12:10 05/18/17 06:08 EXAM: LUNGS: CTA HEART: S1, S2 ABDOMEN: Soft EXTREMITIES: Left stump examined. on the posterior, there are two dime sized areas of erythema. Not warm. Appear pressure related NEUROLOGIC: Alert, may have some memory problems ASSESSMENT/PLAN: 1. Left BKA: Continue PT/OT. Will stop knee immobilizer for left knee as he is developing pressure areas. Stump lead military analyst as tolerated 2. Atrial Fib: continue coumadin 5 mg. INR Wednesday. Cardizem/Lopressor 3. Code Status: Full code 4. DVT Prophylaxis: Coumadin 5. Progress/Disposition: Family training started today. Pat will visit [facility]. They will see how realistic it is to try to get him home.
[2017-05-18] MEDS: Warfarin TAB(*) 4 MG PO SCH (17:03)
[2017-05-18] MEDS: Atorvastatin* 20 MG TAB PO SCH (17:03)
[2017-05-18] MEDS: oxyCODONE TAB* 5 MG TAB PO PRN (17:59)
[2017-05-19] MEDS: Diltiazem TAB* 30 MG PO SCH ×5 (00:11→23:39)
[2017-05-19] MEDS: oxyCODONE TAB* 5 MG TAB PO PRN ×4 (00:14→23:16)
[2017-05-19] MEDS: Omeprazole CAP* 20 MG PO SCH (06:12)
[2017-05-19 07:04] LABS: Hematocrit 33 % (42-52); Hemoglobin 10.8 g/dl (14.0-18.0); Mean Corpuscular HGB Conc 33 g/dl (31-36); Mean Corpuscular Hemoglobin 28 pg (27-31); Mean Corpuscular Volume 85 fL (80-94); Mean Platelet Volume 7 um3 (7.4-10.4); Red Blood Count 3.85 10^6/ul (4.0-5.4); Red Cell Distribution Width 17 % (10.5-15); White Blood Count 3.7 10^3/ul (3.5-10.8)
[2017-05-19 07:08] LABS: Comments Flag Yes
[2017-05-19 07:09] LABS: Add Diff/Slide Review? Slide Review Added
[2017-05-19 07:32] LABS: Albumin 2.7 g/dL (3.2-5.2); BUN/Creatinine Ratio 20.8 (8-20); Calcium 8.2 mg/dL (8.6-10.3); EGFR African American 197.7 (>60); EGFR Non-African American 153.7 (>60); Globulin 2.6 g/dL (2-4); Potassium 4.1 mmol/L (3.5-5.0); Total Bilirubin 0.4 mg/dL (0.2-1.0); Total Protein 5.3 g/dL (6.4-8.9)
[2017-05-19] MEDS: Gabapentin CAP(*) 100 MG PO SCH ×3 (09:59→20:06)
[2017-05-19] MEDS: Citalopram TAB* 20 MG PO SCH (10:00)
[2017-05-19] MEDS: Docusate CAP* 100 MG PO SCH ×2 (10:00→20:07)
[2017-05-19] MEDS: Metoprolol Tartrate TAB* 50 mg PO SCH ×2 (10:00→20:07)
[2017-05-19] MEDS: Magnesium Oxide TAB* 400 MG PO SCH ×2 (10:00→20:06)
[2017-05-19] MEDS: Famotidine TAB* 20 MG PO SCH ×2 (10:00→20:06)
[2017-05-19] MEDS: Fluticasone NASAL SPRAY 50MCG* 16 gm SPRAY BTL BOTH NARES SCH (10:01)
--- NOTE | 2017-05-19 13:00 | PN ---
Progress Note - Progress Note Date of Service: 05/19/17 Note: Patient visited. Nursing and therapy notes reviewed. No chest pain, shortness of breath or abdominal pain. He is trying his best with therapies. I note family meeting yesterday with Dr. Mahmood, patient, social work and . Acetaminophen (Tylenol Tab*) 650 mg PO Q6H PRN PRN Reason: FEVER/PAIN Last Admin: 05/06/17 03:06 Dose: 650 mg Alprazolam (Xanax Tab*) 0.25 mg PO BID PRN PRN Reason: ANXIETY Atorvastatin Calcium (Lipitor*) 20 mg PO 1700 [facility] Last Admin: 05/18/17 17:03 Dose: 20 mg Bisacodyl (Dulcolax Supp*) 10 mg [place] DAILY PRN PRN Reason: CONSTIPATION Citalopram Hydrobromide (Celexa Tab*) 20 mg PO DAILY [facility] Last Admin: 05/19/17 10:00 Dose: 20 mg Cyanocobalamin (Vitamin B12 Inj *) 1,000 mcg IM Q30D [facility] Last Admin: 05/10/17 07:57 Dose: 1,000 mcg Diltiazem HCl (Cardizem Tab*) 30 mg PO Q6HR [facility] Last Admin: 05/19/17 12:20 Dose: Not Given Docusate Sodium (Colace Cap*) 100 mg PO BID [facility] Last Admin: 05/19/17 10:00 Dose: 100 mg Famotidine (Pepcid Tab*) 20 mg PO BID [facility] Last Admin: 05/19/17 10:00 Dose: 20 mg Fluticasone Propionate (Flonase Nasal [place] 50mcg*) 2 spray BOTH NARES DAILY [facility] Last Admin: 05/19/17 10:01 Dose: 2 spray Gabapentin (Neurontin Cap(*)) 200 mg PO TID [facility] Last Admin: 05/19/17 09:59 Dose: 200 mg Magnesium Oxide (Magox 400 Tab*) 400 mg PO BID [facility] Last Admin: 05/19/17 10:00 Dose: 400 mg Metoprolol Tartrate (Lopressor Tab*) 50 mg PO Q12HR [facility] Last Admin: 05/19/17 10:00 Dose: 50 mg Omeprazole (Prilosec Cap*) 20 mg PO 0600 [facility] Last Admin: 05/19/17 06:12 Dose: 20 mg Oxycodone HCl (Roxycodone Tab*) 5 mg PO Q4H PRN PRN Reason: PAIN - MODERATE TO SEVERE Last Admin: 05/19/17 12:18 Dose: 5 mg Senna (Senokot Tab*) 2 tab PO BEDTIME PRN PRN Reason: CONSTIPATION Warfarin Sodium (Coumadin Tab(*)) 4 mg PO DAILY@1700 [place] PRN Reason: Protocol Last Admin: 05/18/17 17:03 Dose: 4 mg Temp Pulse Resp BP Pulse Ox 98.8 F 84 18 94/62 97 05/19/17 06:11 05/19/17 06:15 05/19/17 12:18 05/19/17 12:21 05/19/17 10:21 PE: General - no acute distress. Alert and appropriate. Lungs - clear bilaterally. 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 He can fully extend the knee. Right leg without edema. Laboratory Results - last 24 hr 05/19/17 05/19/17 05/19/17 06:57 06:57 06:57 WBC 3.7 RBC 3.85 L Hgb 10.8 L Hct 33 L MCV 85 MCH 28 MCHC 33 RDW 17 H Plt Count 170 MPV 7 L Neut % (Auto) 48.4 Lymph % (Auto) 40.1 Rankin % (Auto) 7.5 Eos % (Auto) 1.2 Baso % (Auto) 2.8 H Absolute Neuts (auto) 1.8 Absolute Lymphs (auto) 1.5 Absolute Monos (auto) 0.3 Absolute Eos (auto) 0 Absolute Basos (auto) 0.1 Absolute Nucleated RBC 0.01 Nucleated RBC % 0.2 INR (Anticoag Therapy) 2.20 H Sodium 136 Potassium 4.1 Chloride 101 Carbon Dioxide 31 Anion Gap 4 BUN 11 Creatinine 0.53 L Est GFR ( Amer) 197.7 Est GFR (Non-Af Amer) 153.7 BUN/Creatinine Ratio 20.8 H Glucose 97 Calcium 8.2 L Total Bilirubin 0.40 AST 13 ALT 12 Alkaline Phosphatase 92 Total Protein 5.3 L Albumin 2.7 L Globulin 2.6 Albumin/Globulin Ratio 1.0 ASSESSMENT/PLAN: 71yo man with peripheral vascular disease s/p left BKA complicated by respiratory failure, gastric ulcerations and atrial fibrillation. 1. Left BKA: Continue PT/OT. Keep knee in extension at rest. Stretch in PT. 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 Atrial Fib: INR therapeutic on coumadin 4 mg qpm. INR q m/w/f. Cardizem/ Lopressor 3. DVT Prophylaxis: Coumadin 4. Advanced Directives: Full code. Daughter is HCP if needed. 5. Disposition: looking at [place] in case he does not make adequate progress towards independent toileting and toilet hygiene.
[2017-05-19] MEDS: Atorvastatin* 20 MG TAB PO SCH (17:45)
[2017-05-19] MEDS: Warfarin TAB(*) 4 MG PO SCH (17:45)
[2017-05-20] MEDS: Omeprazole CAP* 20 MG PO SCH (05:52)
[2017-05-20] MEDS: Diltiazem TAB* 30 MG PO SCH ×3 (05:52→17:38)
[2017-05-20] MEDS: Docusate CAP* 100 MG PO SCH ×2 (07:45→22:06)
[2017-05-20] MEDS: Metoprolol Tartrate TAB* 50 mg PO SCH ×2 (07:45→22:06)
[2017-05-20] MEDS: Citalopram TAB* 20 MG PO SCH (07:45)
[2017-05-20] MEDS: Fluticasone NASAL SPRAY 50MCG* 16 gm SPRAY BTL BOTH NARES SCH (07:45)
[2017-05-20] MEDS: Magnesium Oxide TAB* 400 MG PO SCH ×2 (07:45→22:06)
[2017-05-20] MEDS: Famotidine TAB* 20 MG PO SCH ×2 (07:46→22:06)
[2017-05-20] MEDS: Gabapentin CAP(*) 100 MG PO SCH ×3 (07:46→22:06)
[2017-05-20] MEDS: oxyCODONE TAB* 5 MG TAB PO PRN ×3 (10:03→22:06)
--- NOTE | 2017-05-20 13:07 | PN ---
Progress Note - Progress Note Date of Service: 05/20/17 Note: Patient visited. Nursing and therapy notes reviewed. Patient states having bowel movements but feels like it should be coming out more than it is. Stools are soft. No chest pain, shortness of breath or abdominal pain. I reviewed MAR and note that cardizem 30mg q6h is often held for spb <105. Patient has been followed by a social work therapist in [place] for A.fib and was previously on sotalol. Temp Pulse Resp BP Pulse Ox 98.8 F 110 18 108/67 97 05/20/17 05:46 05/20/17 05:46 05/20/17 10:03 05/20/17 05:46 05/20/17 08:04 PE: General - no acute distress. Alert and appropriate. Lungs - clear bilaterally. 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 He can fully extend the knee. Right leg without edema. ASSESSMENT/PLAN: 71yo man with peripheral vascular disease s/p left BKA complicated by respiratory failure, gastric ulcerations and atrial fibrillation. 1. Left BKA: Continue PT/OT. Keep knee in extension at rest. Stretch in PT. 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 Atrial Fib: INR therapeutic on coumadin 4 mg qpm. INR q m/w/. On cardizem/ Lopressor from [facility] but cardizem is often held due to sbps less than 105. Yesterday he only received cardizem once. It appears it may be needed for rate control however. I have asked for cardiology consultation. I reviewed records from [facility] that we have. I do not find an ECHO report but a medicine consult mentions "his last echo showed EF 43% with diastolic dysfunction." I have asked to assist me in obtaining an ECHO report by contacting his primary social work therapist. 3. DVT Prophylaxis: Coumadin 4. Bowels - I will reschedule senna and add metamucil. 5. Advanced Directives: Full code. Daughter is HCP if needed. 6. Disposition: looking at [place] in case he does not make adequate progress towards independent toileting and toilet hygiene.
[2017-05-20] MEDS: Warfarin TAB(*) 4 MG PO SCH (17:48)
[2017-05-20] MEDS: Atorvastatin* 20 MG TAB PO SCH (17:48)
--- NOTE | 2017-05-20 19:18 | CONS ---
CC: Dr. Mahmood; Dr. Lema * CARDIOLOGY CONSULT: DATE OF CONSULT: 05/20/17 HISTORY OF PRESENT ILLNESS: I was asked to see this 71-year-old male patient who transferred to our rehab facility from [facility] in [place]. The patient is a 71-year-old with history significant for peripheral arterial disease. He had left below knee amputation recently at [facility]. Cardiac lees, there is a history of atrial fibrillation, which is chronic. He was seen by Cardiology at [facility] and for rate control by Cardizem and beta-marcelo treatment. The patient does have extensive history of anemia, hyperlipidemia, hypertension, back pain syndrome, osteomyelitis, ulcer of the left foot in the past, and history of ischemic leg, history of mitral insufficiency, tricuspid insufficiency, aortic insufficiency. The echo as per the notes from [facility] showed EF of 43% with diastolic dysfunction, although there was an echo from 2015 that showed the EF to be within normal limits. I was asked to see this patient because of atrial fibrillation for the rate control with Cardizem and beta-marcelo treatment. The patient himself, he gives no symptoms of chest pain, no nausea, no vomiting, no hematochezia, no skin rash, no abdominal pain, no syncope, no fever, no chills, no swelling in the lower extremities. PAST MEDICAL HISTORY: Extensive including history of atrial fibrillation, gastroesophageal reflux disease, peripheral arterial disease, history of broken back, recent left below knee amputation, history of osteomyelitis, hypertension , hyperlipidemia, mixed valvular disease. PAST SURGICAL HISTORY: Extensive including colonoscopy, angioplasty of peroneal artery, back surgeries, history of below knee amputation, spine surgery , history of tonsillectomy, toe amputation. CURRENT MEDICATIONS: Include: 1. Tylenol 650 mg p.o. q.6 hours p.r.n. 2. Lipitor 20 mg daily. 3. Vitamin B12 injection 1000 mcg daily. 4. Diltiazem 30 mg p.o. q.6 hours. 5. Pepcid 20 mg twice a day. 6. Neurontin 200 mg 3 times a day. 7. Magnesium 400 mg twice a day. 8. Metoprolol 50 mg p.o. q.12 hours. 9. Prilosec 20 mg daily. 10. Coumadin adjusted to the PT and INR. ALLERGIES: No known drug allergies. SOCIAL HISTORY: No history of smoking. No drinking. No history of illicit drug use. REVIEW OF SYSTEMS: Review of all other systems essentially is negative. PHYSICAL EXAM: He is awake, alert, and oriented. He is not in acute distress. Vitals: Blood pressure 110/70, pulse 80 and irregularly irregular, and the patient is afebrile. Head and Neck Exam: Normocephalic, atraumatic head. Ears , Nose, and Throat: Essentially benign. Neck: Supple. JVP is not elevated. No carotid bruits. No masses in the neck are appreciated. Chest: Diminished air entry bilaterally. No rales, no wheeze. Heart: Irregularly irregular. S1 and S2. No added sounds, no gallops, no rubs, no significant murmurs. Abdomen: Benign, soft. Positive bowel sounds. Extremities: Left below knee amputation. Skin exam is normal. Psych: Normal affect and mood. 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 DIAGNOSTIC STUDIES/LAB DATA: Sodium 136, potassium 4.1, chloride 101, BUN 11, creatinine 0.53. LFTs are normal. White blood cells 3.7, hemoglobin 10.8, hematocrit 33, and platelets 170. EKG: There is none in the system. The patient does have history of chronic atrial fibrillation. IMPRESSION: The patient is a 71-year-old male patient with: 1. Extensive peripheral arterial disease history with a recent left below knee amputation done at [facility] in [place]. 2. Chronic atrial fibrillation, now he is on rate-limiting agents with Cardizem and beta-marcelo treatment. 3. Hyperlipidemia. 4. Systemic arterial hypertension. 5. Mixed valvular disease. 6. History of cardiomyopathy as per Cardiology notes from [facility], ejection fraction was reported to be 43% with some diastolic dysfunction. I do not have the full transthoracic echo report immediately available to me. 7. Multiple surgeries in the past as outlined above. PLAN: I think at the present time priority plan is to continue rate-limiting agents as you already doing. I changed metoprolol to 25 mg q.6 hours and added for better control digoxin 0.125 mg daily especially the left ventricular systolic function, EF was reported to be reduced as per the [facility] notes. We will change parameters to hold for heart rate less then 60 and systolic blood pressure less than 100. Avoid dehydration. Keep a close eye on renal function as well as on electrolytes especially potassium, keep it around 4.0 or more, magnesium 2.0 or more. Avoid significant stimulants. I do recommend a followup echocardiogram on the left ventricular systolic function evaluation the feeling that probably that was tachycardia induced, we will evaluate that. The patient is hemodynamically stable without any symptoms of chest pain or congestive heart failure on physical exam. We will follow him closely with you. We will make further recommendations accordingly. Thank you very much for asking us to participate in the care of this patient. TIME SPENT: More than half of at least 60 plus minutes was in the education and counseling mode, [id number], explaining all of the above and answering his concerns and questions and making further recommendations. [id number]/CPS #: [id number] DARNELL
[2017-05-20] MEDS: Senna TAB PO SCH (22:07)
[2017-05-21] MEDS: Diltiazem TAB* 30 MG PO SCH ×4 (00:04→17:31)
[2017-05-21] MEDS: Metoprolol Tartrate TAB* 25 MG PO SCH ×4 (00:07→17:31)
[2017-05-21] MEDS: Omeprazole CAP* 20 MG PO SCH (05:47)
[2017-05-21] MEDS: Psyllium PAK PO SCH (08:47)
[2017-05-21] MEDS: Digoxin TAB* 0.125 MG PO SCH (08:49)
[2017-05-21] MEDS: Citalopram TAB* 20 MG PO SCH (08:49)
[2017-05-21] MEDS: Gabapentin CAP(*) 100 MG PO SCH ×3 (08:49→20:17)
[2017-05-21] MEDS: Famotidine TAB* 20 MG PO SCH ×2 (08:49→20:11)
[2017-05-21] MEDS: Fluticasone NASAL SPRAY 50MCG* 16 gm SPRAY BTL BOTH NARES SCH (08:49)
[2017-05-21] MEDS: Magnesium Oxide TAB* 400 MG PO SCH ×2 (08:49→20:12)
[2017-05-21] MEDS: Docusate CAP* 100 MG PO SCH ×2 (08:50→20:14)
--- NOTE | 2017-05-21 09:42 | ECHO ---
Patient: RAMIRO VELAZQUEZ [facility] Rec#: [id number] : 1945 Date: 05/21/2017 Age: 71y Height: 175.3 cm / 69.0 in Weight: 54 kg / 119.0 lbs Sex: M BSA: 1.7 Room#: [facility] Admit Date#: 05/04/2017 Type: Inpatient Referring: Gladys Lema MD Reading: Gladys Lema MD Belt Tender: Gayathri Nelson RN RDCS CC: Jeni SLAUGHTER,Samason Transthoracic Echocardiogram Indication: Atrial fibrillation BP: 128/66 HR: 85 Rhythm: A-Fib Findings History: A. fib, valvular disease, HTN, HLD, PAD, recent left BKA Technical Comments: The study quality is fair. Completed at 0915. Left Ventricle: The left ventricular chamber size is normal. Global left ventricular wall motion and contractility are within normal limits. Left ventricular systolic function is at the lower limits of normal. The estimated ejection fraction is 50-55%. The assessment of diastolic function is non-diagnostic. Left Atrium: The left atrium is severely dilated. Right Ventricle: The right ventricular chamber size and systolic function are within normal limits. Right Atrium: The right atrium is mild to moderately dilated. Aortic Valve: The aortic valve is trileaflet. The aortic valve leaflets are mildly thickened. There is moderate aortic regurgitation. There is no evidence of aortic stenosis. The measured aortic regurgitation pressure half-time is 412 msec. Mitral Valve: Mild mitral annular calcification present. The mitral valve leaflets are mildly thickened. There is moderate to severe mitral regurgitation. There is no evidence of mitral stenosis. Tricuspid Valve: The tricuspid valve leaflets are normal. There is moderate tricuspid regurgitation. There is evidence of mild pulmonary hypertension. There is no tricuspid stenosis. Pulmonic Valve: The pulmonic valve appears normal. There is mild to moderate pulmonic regurgitation. There is no pulmonic stenosis. Pericardium: There is no significant pericardial effusion. A left pleural effusion is present. Aorta: The ascending aorta is not well visualized. The aortic arch is not well visualized. There is no dilation of the aortic root. Pulmonary Artery: The main pulmonary artery appears normal. Venous: The inferior vena cava appears normal in size. There is a greater than 50% respiratory change in the inferior vena cava dimension. Summary: There was not any prior study for comparison. Conclusions The left ventricular chamber size is normal. Left ventricular systolic function is at the lower limits of normal. The estimated ejection fraction is 50-55%. The assessment of diastolic function is non-diagnostic. The left atrium is severely dilated. The right atrium is mild to moderately dilated. There is moderate aortic regurgitation. There is moderate to severe mitral regurgitation. There is moderate tricuspid regurgitation. There is evidence of mild pulmonary hypertension. Measurements Name Value Normal Range RVDdMajor (2D) 2.9 cm (2.2 - 4.4) RAd ISD 4CH 5.5 cm (3.4 - 4.9) RA (A4C)W 3.6 cm (2.9 - 4.6) IVSd (2D) 1 cm (0.6 - 1) LVPWd (2D) 1 cm (0.6 - 1) LVIDd (2D) 4.3 cm (3.6 - 5.4) LVIDs (2D) 3.1 cm - LV FS (2D) 28 % (25 - 45) Aortic Annulus 1.9 cm (1.4 - 2.6) Ao root diameter (2D) 3 cm (2.1 - 3.5) LA dimension (AP) 2D 5 cm (2.3 - 3.8) LAd ISD 4CH 5.6 cm (2.9 - 5.3) LA ISD 4CH W 4.8 cm (2.5 - 4.5) Name Value Normal Range LA ESV SP 4CH (A/L) 86 ml - LA ESV SP 2CH (A/L) 83 ml - LA ESV BP (A/L) 87 ml - LA ESV BP (A/L) index 52.2 ml/m2 - LA ESV SP 4CH (MOD) 82 ml - LA ESV SP 2CH (MOD) 78 ml - Name Value Normal Range MV E-wave Vmax 0.9 m/sec - MV deceleration time 183 msec - LV septal e' Vmax 0.1 m/sec - LV lateral e' Vmax 0.11 m/sec - LV E:e' septal ratio 9 ratio - LV E:e' lateral ratio 8.2 ratio - Name Value Normal Range AV Vmax 0.86 m/sec - AV VTI 19 cm - AV peak gradient 2.9 mmHg - AV mean gradient 1.9 mmHg - LVOT Vmax 0.67 m/sec - LVOT VTI 12.6 cm - LVOT peak gradient 1.8 mmHg - LVOT mean gradient 1 mmHg - AR PHT 412 msec - Name Value Normal Range TR Vmax 3 m/sec - TR peak gradient 36 mmHg - RAP 3 mmHg - RVSP 39 mmHg - IVC diameter 1.6 cm - Name Value Normal Range PV Vmax 0.55 m/sec -
[2017-05-21] MEDS: oxyCODONE TAB* 5 MG TAB PO PRN ×3 (10:30→22:04)
--- NOTE | 2017-05-21 10:41 | PN ---
Progress Note - Progress Note Date of Service: 05/21/17 Note: Patient visited. Nursing and therapy notes reviewed. Still having gas and bowel urgency sensations. Today had a large liquid stool. Appreciate cardiology consultation yesterday. Had ECHO this am. No chest pain, shortness of breath or abdominal pain. Acetaminophen (Tylenol Tab*) 650 mg PO Q6H PRN PRN Reason: FEVER/PAIN Last Admin: 05/06/17 03:06 Dose: 650 mg Alprazolam (Xanax Tab*) 0.25 mg PO BID PRN PRN Reason: ANXIETY Atorvastatin Calcium (Lipitor*) 20 mg PO 1700 [facility] Last Admin: 05/20/17 17:48 Dose: 20 mg Bisacodyl (Dulcolax Supp*) 10 mg [place] DAILY PRN PRN Reason: CONSTIPATION Citalopram Hydrobromide (Celexa Tab*) 20 mg PO DAILY [facility] Last Admin: 05/21/17 08:49 Dose: 20 mg Cyanocobalamin (Vitamin B12 Inj *) 1,000 mcg IM Q30D [facility] Last Admin: 05/10/17 07:57 Dose: 1,000 mcg Digoxin (Lanoxin Tab*) 0.125 mg PO DAILY [facility] Last Admin: 05/21/17 08:49 Dose: 0.125 mg Diltiazem HCl (Cardizem Tab*) 30 mg PO Q6HR [facility] Last Admin: 05/21/17 05:47 Dose: 30 mg Docusate Sodium (Colace Cap*) 100 mg PO BID [facility] Last Admin: 05/21/17 08:50 Dose: Not Given Famotidine (Pepcid Tab*) 20 mg PO BID [facility] Last Admin: 05/21/17 08:49 Dose: 20 mg Fluticasone Propionate (Flonase Nasal [place] 50mcg*) 2 spray BOTH NARES DAILY [facility] Last Admin: 05/21/17 08:49 Dose: 2 spray Gabapentin (Neurontin Cap(*)) 200 mg PO TID [facility] Last Admin: 05/21/17 08:49 Dose: 200 mg Magnesium Oxide (Magox 400 Tab*) 400 mg PO BID [facility] Last Admin: 05/21/17 08:49 Dose: 400 mg Metoprolol Tartrate (Lopressor Tab*) 25 mg PO Q6HR [facility] Last Admin: 05/21/17 05:48 Dose: 25 mg Omeprazole (Prilosec Cap*) 20 mg PO 0600 [facility] Last Admin: 05/21/17 05:47 Dose: 20 mg Oxycodone HCl (Roxycodone Tab*) 5 mg PO Q4H PRN PRN Reason: PAIN - MODERATE TO SEVERE Last Admin: 05/21/17 10:30 Dose: 5 mg Psyllium Hydrophilic Mucilloid (Metamucil Maneul*) 1 pkt PO DAILY [facility] Last Admin: 05/21/17 08:47 Dose: 1 pkt Senna (Senokot Tab*) 2 tab PO BEDTIME [facility] Last Admin: 05/20/17 22:07 Dose: Not Given Warfarin Sodium (Coumadin Tab(*)) 4 mg PO DAILY@1700 [facility] PRN Reason: Protocol Last Admin: 05/20/17 17:48 Dose: 4 mg Temp Pulse Resp BP Pulse Ox 97.7 F 91 18 128/66 100 05/21/17 05:29 05/21/17 05:29 05/21/17 10:32 05/21/17 05:29 05/21/17 08:52 PE: General - no acute distress. Alert and appropriate. Lungs - clear bilaterally. 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 He can fully extend the knee. Right leg without edema. Laboratory Results - last 24 hr 05/21/17 05:46 INR (Anticoag Therapy) 2.58 H ECHO 05/21/17 shows EF 50-55% and left atrial dilitation. See report for more detail. ASSESSMENT/PLAN: 71yo man with peripheral vascular disease s/p left BKA complicated by respiratory failure, gastric ulcerations and atrial fibrillation. 1. Left BKA: Continue PT/OT. Keep knee in extension at rest. Stretch in PT. 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 Atrial Fib: INR therapeutic on coumadin 4 mg qpm. INR q m/w/. Digoxin added for rate control, given doses of cardizem and lopressor held for lower BPs. Lopressor now Q6h as well and parameters adjusted by cardiology. Cardiology f/ u appreciated. 3. DVT Prophylaxis: Coumadin 4. Bowels - Scheduled senna and metamucil. I advised patient to give metamucil a couple days to form stool. 5. Advanced Directives: Full code. Daughter is HCP if needed. 6. Disposition: looking at [place] in case he does not make adequate progress towards independent toileting and toilet hygiene.
[2017-05-21] MEDS: Atorvastatin* 20 MG TAB PO SCH (17:00)
[2017-05-21] MEDS: Warfarin TAB(*) 4 MG PO SCH (17:00)
[2017-05-21] MEDS: Senna TAB PO SCH (20:12)
[2017-05-22] MEDS: Diltiazem TAB* 30 MG PO SCH ×4 (00:34→18:34)
[2017-05-22] MEDS: Metoprolol Tartrate TAB* 25 MG PO SCH ×4 (00:34→18:34)
[2017-05-22] MEDS: Omeprazole CAP* 20 MG PO SCH (06:32)
[2017-05-22] MEDS: Psyllium PAK PO SCH (08:26)
[2017-05-22] MEDS: Digoxin TAB* 0.125 MG PO SCH (08:28)
[2017-05-22] MEDS: Gabapentin CAP(*) 100 MG PO SCH ×3 (08:30→20:42)
[2017-05-22] MEDS: Magnesium Oxide TAB* 400 MG PO SCH ×2 (08:30→20:42)
[2017-05-22] MEDS: Famotidine TAB* 20 MG PO SCH ×2 (08:30→20:41)
[2017-05-22] MEDS: Citalopram TAB* 20 MG PO SCH (08:30)
[2017-05-22] MEDS: Docusate CAP* 100 MG PO SCH ×2 (08:31→20:42)
[2017-05-22] MEDS: Fluticasone NASAL SPRAY 50MCG* 16 gm SPRAY BTL BOTH NARES SCH (08:32)
--- NOTE | 2017-05-22 10:32 | RAD ---
INDICATION: Bowel urgency. COMPARISON: Comparison is made with a prior KUB series from September 10, 2016. TECHNIQUE: Supine and decubitus views of the abdomen were obtained. FINDINGS: The small bowel and colon appear nondistended. No free intraperitoneal air is seen. There is a moderate to large amount retained stool. There are vascular calcifications present. There are surgical clips and sutures in the right and left upper quadrants. The patient is status post posterior spinal fusion from the T11 through the L3 levels. IMPRESSION: 1. NO EVIDENCE FOR DESTRUCTION. 2. MODERATE TO LARGE AMOUNT RETAINED STOOL.
[2017-05-22] MEDS ORDERED: Magnesium Hydroxide LIQ* 30 ML UDC PO PRN (10:35)
--- NOTE | 2017-05-22 10:44 | PN ---
Progress Note - Progress Note Date of Service: 05/22/17 Note: Patient visited. Nursing and therapy notes reviewed. He still feels like he needs to have a BM but can't. Yesterday had a large liquid stool and yesterday afternoon had a formed stool, but not relieved. No chest pain, shortness of breath or abdominal pain. Seen by Dr. Merida yesterday. Temp Pulse Resp BP Pulse Ox 98.6 F 88 18 97/54 98 05/22/17 06:40 05/22/17 08:28 05/22/17 08:30 05/22/17 06:40 05/22/17 06:40 PE: General - no acute distress. Alert and appropriate. Lungs - clear bilaterally. Heart: regular (has h/o A.fib) Abdomen: positive bowel sounds, soft, non-tender and non-distended Ext: Left BKA with eschar laterally. He can fully extend the knee. Right leg without edema. Abdominal series 05/22/17 showed no obstruction. There is moderate to large amount of retained stool. ECHO 05/21/17 shows EF 50-55% and left atrial dilitation. See report for more detail. ASSESSMENT/PLAN: 71yo man with peripheral vascular disease s/p left BKA complicated by respiratory failure, gastric ulcerations and atrial fibrillation. 1. Left BKA: Continue PT/OT. Keep knee in extension at rest. Stretch in PT. 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 Atrial Fib: INR therapeutic on coumadin 4 mg qpm. INR q m/w/f. Digoxin for rate control, given doses of cardizem and lopressor held for lower BPs. Lopressor now Q6h as well and parameters adjusted by cardiology. Cardiology f/ u appreciated. Change to long acting meds before d/c. 3. DVT Prophylaxis: Coumadin 4. Bowels - d/c metamucil. Probably had liquid stool around formed stool yesterday morning. Scheduled senna. Add scheduled miralax. Give MOM today. 5. Advanced Directives: Full code. Daughter is HCP if needed. 6. Disposition: would like him to go to [place] if he is not independent toileting and toilet hygiene.
[2017-05-22] MEDS: oxyCODONE TAB* 5 MG TAB PO PRN ×2 (14:43→19:52)
[2017-05-22] MEDS: Warfarin TAB(*) 4 MG PO SCH (16:59)
[2017-05-22] MEDS: Atorvastatin* 20 MG TAB PO SCH (16:59)
[2017-05-22] MEDS: Senna TAB PO SCH (20:42)
[2017-05-23] MEDS: Metoprolol Tartrate TAB* 25 MG PO SCH ×4 (01:16→18:08)
[2017-05-23] MEDS: Diltiazem TAB* 30 MG PO SCH ×4 (01:16→18:08)
[2017-05-23] MEDS: Omeprazole CAP* 20 MG PO SCH (05:20)
[2017-05-23] MEDS: Magnesium Oxide TAB* 400 MG PO SCH ×2 (10:08→20:18)
[2017-05-23] MEDS: Citalopram TAB* 20 MG PO SCH (10:08)
[2017-05-23] MEDS: Famotidine TAB* 20 MG PO SCH ×2 (10:08→20:18)
[2017-05-23] MEDS: Gabapentin CAP(*) 100 MG PO SCH ×3 (10:08→20:18)
[2017-05-23] MEDS: Docusate CAP* 100 MG PO SCH ×2 (10:08→20:18)
[2017-05-23] MEDS: Digoxin TAB* 0.125 MG PO SCH (10:10)
[2017-05-23] MEDS: Fluticasone NASAL SPRAY 50MCG* 16 gm SPRAY BTL BOTH NARES SCH (10:11)
[2017-05-23] MEDS: Psyllium PAK PO SCH (10:12)
[2017-05-23] MEDS: Polyethylene Glycol 3350* 17 GM PACKET PO SCH (10:13)
--- NOTE | 2017-05-23 10:46 | PN ---
Progress Note - Progress Note Date of Service: 05/23/17 Note: Patient visited. Nursing notes reviewed. No chest pain, shortness of breath or abdominal pain. He had 2 large BMs after MOM yesterday and also went this AM. He is doing better. Temp Pulse Resp BP Pulse Ox 98.5 F 88 18 109/51 98 05/23/17 05:23 05/23/17 10:10 05/23/17 10:08 05/23/17 05:23 05/23/17 05:23 PE: General - no acute distress. Alert and appropriate. Lungs - clear bilaterally. Heart: regular (has h/o A.fib) Abdomen: positive bowel sounds, soft, non-tender and non-distended Ext: Left BKA with eschar vs area of ongoing ischemia. He can fully extend the knee. Right leg without edema. Abdominal series 05/22/17 showed no obstruction. There is moderate to large amount of retained stool. ECHO 05/21/17 shows EF 50-55% and left atrial dilitation. See report for more detail. ASSESSMENT/PLAN: 71yo man with peripheral vascular disease s/p left BKA complicated by respiratory failure, gastric ulcerations and atrial fibrillation. 1. Left BKA: Continue PT/OT. Keep knee in extension at rest. Stretch in PT. 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 Seen by Dr. Merida on 05/21 (note in chart) who said sutures could come out Wednesday. f/u with Vascular in [facility] office in [facility] in 6-8wks. 2. Atrial Fib: On coumadin 4 mg qpm. INR q //. Digoxin for rate control, given doses of cardizem and lopressor held for lower BPs. Lopressor and cardizem Q6h with parameters to hold. Cardiology f/u appreciated. Change to long acting meds before d/c. 3. DVT Prophylaxis: Coumadin 4. Bowels - senna and miralax. 5. Advanced Directives: Full code. Daughter is HCP if needed. 6. Disposition: would like him to go to [place] if he is not independent toileting and toilet hygiene.
[2017-05-23] MEDS: oxyCODONE TAB* 5 MG TAB PO PRN ×3 (10:54→21:59)
[2017-05-23] MEDS: Warfarin TAB(*) 4 MG PO SCH (16:20)
[2017-05-23] MEDS: Atorvastatin* 20 MG TAB PO SCH (16:21)
[2017-05-23] MEDS: Senna TAB PO SCH (20:19)
[2017-05-24] MEDS: Diltiazem TAB* 30 MG PO SCH ×4 (00:25→18:04)
[2017-05-24] MEDS: Metoprolol Tartrate TAB* 25 MG PO SCH ×4 (00:25→18:04)
[2017-05-24] MEDS: Omeprazole CAP* 20 MG PO SCH (05:37)
[2017-05-24] MEDS: Polyethylene Glycol 3350* 17 GM PACKET PO SCH (08:55)
[2017-05-24] MEDS: Docusate CAP* 100 MG PO SCH ×2 (08:57→21:09)
[2017-05-24] MEDS: Psyllium PAK PO SCH (09:06)
[2017-05-24] MEDS: Fluticasone NASAL SPRAY 50MCG* 16 gm SPRAY BTL BOTH NARES SCH (09:06)
[2017-05-24] MEDS: Gabapentin CAP(*) 100 MG PO SCH ×3 (09:07→21:09)
[2017-05-24] MEDS: Magnesium Oxide TAB* 400 MG PO SCH ×2 (09:07→21:09)
[2017-05-24] MEDS: Famotidine TAB* 20 MG PO SCH ×2 (09:07→21:09)
[2017-05-24] MEDS: Citalopram TAB* 20 MG PO SCH (09:07)
[2017-05-24] MEDS: Digoxin TAB* 0.125 MG PO SCH ×2 (09:10→16:29)
[2017-05-24] MEDS: oxyCODONE TAB* 5 MG TAB PO PRN ×3 (09:53→21:09)
[2017-05-24] MEDS: Atorvastatin* 20 MG TAB PO SCH (16:29)
--- NOTE | 2017-05-24 16:44 | PN ---
Progress Note - Progress Note Date of Service: 05/24/17 Note: Daryn visited. He has no complaints. Therapy notes read and reviewed. Events of last week reviewed. He was seen by Dr. Merida last week. He feels that Daryn's wound is healing. Daryn is tolerating the icing mixer now. Mobility is better but Pat not able to care for him at home. Still requiring assistance for toileting. INR has bumped, perhaps from addition of Digoxin. Cardiology consult reviewed. Case discussed with Dr. Barney. Vital Signs Temp Pulse Resp BP Pulse Ox 98.8 F 72 18 109/53 94 05/24/17 05:36 05/24/17 16:29 05/24/17 16:29 05/24/17 05:36 05/24/17 05:36 Current Medications Acetaminophen (Tylenol Tab*) 650 mg PO Q6H PRN PRN Reason: FEVER/PAIN Last Admin: 05/06/17 03:06 Dose: 650 mg Alprazolam (Xanax Tab*) 0.25 mg PO BID PRN PRN Reason: ANXIETY Atorvastatin Calcium (Lipitor*) 20 mg PO 1700 [facility] Last Admin: 05/24/17 16:29 Dose: 20 mg Bisacodyl (Dulcolax Supp*) 10 mg [place] DAILY PRN PRN Reason: CONSTIPATION Citalopram Hydrobromide (Celexa Tab*) 20 mg PO DAILY [facility] Last Admin: 05/24/17 09:07 Dose: 20 mg Cyanocobalamin (Vitamin B12 Inj *) 1,000 mcg IM Q30D [facility] Last Admin: 05/10/17 07:57 Dose: 1,000 mcg Digoxin (Lanoxin Tab*) 0.125 mg PO 1700 [facility] Last Admin: 05/24/17 16:29 Dose: 0.125 mg Diltiazem HCl (Cardizem Tab*) 30 mg PO Q6HR [facility] Last Admin: 05/24/17 12:44 Dose: 30 mg Docusate Sodium (Colace Cap*) 100 mg PO BID [facility] Last Admin: 05/24/17 08:57 Dose: Not Given Famotidine (Pepcid Tab*) 20 mg PO BID [facility] Last Admin: 05/24/17 09:07 Dose: 20 mg Fluticasone Propionate (Flonase Nasal [place] 50mcg*) 2 spray BOTH NARES DAILY [facility] Last Admin: 05/24/17 09:06 Dose: 2 spray Gabapentin (Neurontin Cap(*)) 200 mg PO TID [facility] Last Admin: 05/24/17 13:43 Dose: 200 mg Magnesium Hydroxide (Milk Of Magnarmando Liq*) 30 ml PO BID PRN PRN Reason: constipation Last Admin: 05/22/17 12:19 Dose: 30 ml Magnesium Oxide (Magox 400 Tab*) 400 mg PO BID [facility] Last Admin: 05/24/17 09:07 Dose: 400 mg Metoprolol Tartrate (Lopressor Tab*) 25 mg PO Q6HR [facility] Last Admin: 05/24/17 12:44 Dose: 25 mg Omeprazole (Prilosec Cap*) 20 mg PO 0600 [facility] Last Admin: 05/24/17 05:37 Dose: 20 mg Oxycodone HCl (Roxycodone Tab*) 5 mg PO Q4H PRN PRN Reason: PAIN - MODERATE TO SEVERE Last Admin: 05/24/17 16:29 Dose: 5 mg Polyethylene Glycol/Electrolytes (Miralax*) 17 gm PO DAILY [facility] Last Admin: 05/24/17 08:55 Dose: Not Given Psyllium Hydrophilic Mucilloid (Metamucil Manuel*) 1 pkt PO DAILY [facility] Last Admin: 05/24/17 09:06 Dose: 1 pkt Senna (Senokot Tab*) 2 tab PO BEDTIME [facility] Last Admin: 05/23/17 20:19 Dose: 2 tab Warfarin Sodium (Coumadin Tab(*)) 2 mg PO DAILY@1700 [place] PRN Reason: Protocol Laboratory Results - last 24 hr 05/24/17 07:04 INR (Anticoag Therapy) 3.60 H EXAM: LUNGS: CTA HEART: S1, S2 ABDOMEN: Soft EXTREMITIES: Left stump examined. on the posterior, there are two dime sized areas of erythema. Not warm. Appear pressure related NEUROLOGIC: Alert, may have some memory problems ASSESSMENT/PLAN: 1. Left BKA: Continue PT/OT. Stump icing mixer as tolerated 2. Atrial Fib: drop coumadin to 2 mg. INR Tomorrow. Digoxin/Lopressor 3. Code Status: Full code 4. DVT Prophylaxis: Coumadin 5. Progress/Disposition: Pat will need to visit other subacutes as [facility] has no male beds. They can explore how realistic it is to try to get him home.
[2017-05-24] MEDS ORDERED: Warfarin TAB(*) 2 MG PO SCH (17:00)
[2017-05-24] MEDS: Senna TAB PO SCH (21:08)
[2017-05-25] MEDS: Diltiazem TAB* 30 MG PO SCH ×4 (00:26→17:40)
[2017-05-25] MEDS: Metoprolol Tartrate TAB* 25 MG PO SCH ×4 (00:26→17:41)
[2017-05-25] MEDS: Omeprazole CAP* 20 MG PO SCH (06:29)
[2017-05-25] MEDS: Magnesium Oxide TAB* 400 MG PO SCH ×2 (07:39→20:05)
[2017-05-25] MEDS: Psyllium PAK PO SCH (07:39)
[2017-05-25] MEDS: Citalopram TAB* 20 MG PO SCH (07:40)
[2017-05-25] MEDS: Gabapentin CAP(*) 100 MG PO SCH ×3 (07:40→20:04)
[2017-05-25] MEDS: Fluticasone NASAL SPRAY 50MCG* 16 gm SPRAY BTL BOTH NARES SCH (07:40)
[2017-05-25] MEDS: Famotidine TAB* 20 MG PO SCH ×2 (07:40→20:04)
[2017-05-25] MEDS: Polyethylene Glycol 3350* 17 GM PACKET PO SCH (07:41)
[2017-05-25] MEDS: Docusate CAP* 100 MG PO SCH ×2 (07:41→20:05)
[2017-05-25] MEDS: oxyCODONE TAB* 5 MG TAB PO PRN ×3 (08:19→17:42)
--- NOTE | 2017-05-25 12:48 | PMRUTEAM ---
PMRU: Goals Current Status: Nursing: Current Status Skin Deviations [left stump] Incision Skin Deviations [Midline Other Coccyx] Skin Deviations [Left Abrasion Posterior Knee] Skin Deviations [Right Heel] Other Skin Deviation Description [ drsg cdi. stump acute care registered nurse on left stump] Skin Deviation Description [ discolored Midline Coccyx] Skin Deviation Description [ 2 spots, circled with sharpie, shrinking Left Posterior Knee] Skin Deviation Description [ blanchable redness Right Heel] Bladder Current Status incontinent at times Bowel Current Status last bm 05/25 Nutrition Current Status adequate Medication Current Status supervision, re-education at times Physical Therapy: Current Status Bed Mobility Assistance Supervision Transfer Moblility Assistance Contact Guard Assist Transfer/Bed Mobility Rolling Walker Recommended Devices Transfer Mobility Comment max A fm w/c to bed and min A off bed Ambulation Assistance Supervision,Contact Guard Assist Ambulation Assistive Devices Rolling Walker Number of Feet Patient 60, 30, 30 Ambulated Manual Wheelchair Control/ Bilateral UE's Technique Wheelchair Propulsion Ability Independent,Standby Assistance Wheelchair Distance (ft) 150 Objective Comments patient needs cuing to lock W/C wheels with every stop. Occupational Therapy: Current Status Upper Body Dressing Supervision Lower Body Dressing Supervision Bathing Contact Guard Assist Toileting Contact Guard Assist Toilet Transfer Supervision,Contact Guard Assist Shower Transfer Supervision,Contact Guard Assist Eating Independent Rec Therapy: Current Status Summary of Assessment and RT assessment complete and pt. is aware of RT Clinical Impression services. Pt. open to continued visits although pt. observed resting most afternoons. Treatment Goals Pt. will engage in leisure activities while on the unit. Treatment Plan Provide RT services and encourage involvement. Social Work: Current Status Discharge Plan return home with home care svs and family support Potential for Family Training pt's is involved and supportive Anticipated Discharge Home Destination Discharge With home care svs and family support Nutrition: Current Status Monitoring Visited pt this afternoon. Pt reports good appetite, states he is tolerating mech ground texture without difficulty. Intake 75-100% of meals. Pt inquired about upgrading diet texture; noted that RESEARCH ARCHAEOLOGIST recommended "soft texture", while official diet order states "mechanical ground," which is stricter. Spoke with RESEARCH ARCHAEOLOGIST, who will reassess texture with pt tomorrow and make any needed recommendations/change with MD. Also discussed Coumadin/Vit K interaction with pt, since unable to do so last week. Pt recalled getting the handout left on his table and states he did read it. Pt verbalized understanding of food/drug interaction. Regular bowel pattern per stool record. Speech: Current Status Assessment Attempted PO trials of toast this date, however patient demonstrated clinical s/s of aspiration/ penetration; patient stated he tries to avoid bread after selecting toast for trials this date. Will attempt whole meat during tomorrow's session . Patient continues to have inconsistent difficulties with memory and functional money management tasks. Goals: Physical Therapy: Initial Goals Bed Mobility Assistance Independent Transfer Mobility Assistance Independent Transfer/Bed Mobility Rolling Walker Recommended Devices Ambulation Independent Ambulation Recommended Devices Rolling Walker Ambulation Distance 50 Wheelchair Propulsion Ability Independent Wheelchair Distance (ft) 150 Stairs Assistance Independent Number of Stairs 1 Physical Therapy: Updated Goals Bed Mobility Assistance Independent Transfer Mobility Assistance Independent Transfer/Bed Mobility Rolling Walker,Kalia Lift Recommended Devices Ambulation Assistance Independent Ambulation Distance (ft) 50 Wheelchair Propulsion Ability Independent Wheelchair Distance (ft) 150 Stairs Assistance Independent Number of Stairs 1 Occupational Therapy: Initial Goals Goals to be Completed in (Days 3 weeks ) Upper Body Bathing Routine Supervision/Set Up Lower Body Bathing Routine Supervision/Set Up Upper Body Dressing Routine Supervision/Set Up Lower Body Dressing Routine Supervision/Set Up Toilet Hygeine and Clothing Modified Independent with Management Routine Toilet Transfer Routine Modified Independent with Step-In Shower Transfer Supervision/Set Up Routine Functional Transfers for ADL Modified Independent with Grooming Routine Supervision/Set Up Feeding Routine Independent Nursing: Goals Bladder Goal continent Bowel Goal continent, regular bowel movements Nutrition Goal 100% of all meals Medication Goal supervision Nutrition: Goals Intervention Goals 1. adequate po intake to support healing of left BKA and promote gradual wt repletion 2. pt will tolerate least-restrictive diet texture without difficulty chewing 3. regulation of bowel pattern without constipation (or diarrhea) Speech: Goals Speech Goal 1 Dysphagia Goal 1 Comments LTG: The patient will demonstrate safe po of thin liquid and soft solids with no overt s/s of aspiration/penetration per RESEARCH ARCHAEOLOGIST observation/ RN report. ST. The patient will demonstrate safe po of soft solids and thin liquids with no overt s/s of aspiration/penetration over 10 trials each. Status: 05/24/17: RESEARCH ARCHAEOLOGIST [place] was contacted by the dietitian regarding the patient requesting to try more regular/soft solid foods versus mechanical ground. Will address within patient's session tomorrow. 05/25/17: Discussed swallowing dysfunction treatment with patient with regular solids to try. [place] was ordered for PO trials with strawberry jam. The patient ate one slice of toast with independent sips of thin between bites, however he demonstrated a cough x2 and a throat clear x3, indicating possible aspiration/penetration. The patient stated "That went down the wrong way, but I brought it back up". Patient then stated he tries to avoid bread after he participated in selection of toast for today's session. Patient stated he would like his meat to be whole and not ground; will see patient with trial of meat for tomorrow' session. Continue with current diet. Speech Goal 2 Cognitive-linguistic Speech Goal 2 Comments LTG: The patient will improve functional cognitive -linguistic skills for improved safety, function and independence for daily living tasks with use of strategies as needed. STGs: 1. The patient will complete immediate memory forward and backward for 3-5 digits at 80% accuracy. Status: Immediate memory of 3 assoicated words forward: 70% ; backward: 43% Ongoing. 2. The patient will complete various functional short term memory tasks with use of strategies at 80% accuracy. Status: Patient recalled acronym for memory strategy as well as 2/4 memory strategies from previous session. Ongoing. 3. The patient will complete functional sequencing tasks for 3-4 items at 80% accuracy. Status as of 05/24/17: Mental manipulation; alphabetical order for a field of 3 words: 40% accuracy, no cues. Ongoing. 4. The patient will state/demonstrate viable solutions to functional daily problem scenarios at 80% accuracy. Status as of 05/14/17: The patient stated problems given visual picture scenario cards at 85% accuracy, improving to 90% accuracy with min cues. The patient stated viable solutions to functional daily problem scenarios at 85% accuracy with increased time. 5.The patient will write functional sentences at 80% accuracy with min cues. Status as of 05/12/17: The patient wrote functional spontaneous sentences at 80% accuracy and sentences to dictation at 80% accuracy with repetition x1 with increased time. Ongoing 6. The patient will complete functional money and time management tasks at 90% accuracy with min cues. Status: Entering and balancing a checkbook register: 50% accuracy, minimal verbal cues. Writing checks/envelopes: 100% min cues; patient had difficulty recalling his own address Social Work: Goals Discharge Plan return home with home care svs and family support Potential for Family Training pt's is involved and supportive Anticipated Discharge Home Destination Discharge With home care svs and family support Care Plan: Care Plan ADL's - Improve/Maintain Start: 05/05/17 15:52 Freq: DAILY Status: Active Target: Activity Type Activity Date Activity User E-Sign Co-Sign Detail Recorded Client Recorded Date Recorded By Document 05/21/17 11:45 [id number] 05/21/17 11:47 [id number] 05/21/17 11:45 PMRU Outcome: ADL's/ADL Transfers Orders/Interventions Occupational Therapy Evaluation & Treatment Communication Tool in Patient Room Device Yes Patient to receive OT 5x/wk for 60-120 Therex min/day Self Care Management Group Therapy UE/LE ADL's with Assist Yes: setupA ADL Transfers with Assist Yes: Sagar except supervision for shower transfer Toileting: Transfers,Clothing Management Yes: Sagar ,Hygeine w/Assist Light Kitchen/Laundry w/Assist No Progression Toward Outcome/Goals Progressing Outcome/Goals Met Pt. leans posteriorly during STS and requires mod assist to steady self. Once standing, pt. requires CGA. Communication-Improve/Maintain Start: 05/04/17 15:31 Freq: DAILY Status: Active Target: Activity Type Activity Date Activity User E-Sign Co-Sign Detail Recorded Client Recorded Date Recorded By Document 05/25/17 11:34 [id number] 05/25/17 11:35 [id number] 05/25/17 11:34 PMRU Outcome: Communication/Cognitive Status Outcome/Goals Makes Needs Known Effectively Other Outcomes/Goals The patient will complete various functional cognitive- lingusitic tasks at 90% accuracy. Safely tolerate the least restrictive diet consistencies without clinical s/s of penetration and/or aspiration. Progression Toward Outcomes/Goals Progressing Outcome/Goals Met Comment Immediate recall of 3 associated words: 70%; in reverse: 43% Recalled acronym and 2/4 memory strategies from previous session. Checkbook register: 50% moderate cues Writing checks/ envelopes: 100% min; difficulty recalling his own address Coping/Psych-Improve/Maintain Start: 05/04/17 14:05 Freq: DAILY Status: Active Target: Activity Type Activity Date Activity User E-Sign Co-Sign Detail Recorded Client Recorded Date Recorded By Document 05/25/17 10:31 [id number] 05/25/17 10:32 [id number] 05/25/17 10:31 PMRU Outcome: Coping/Psychosocial Coping Outcome/Goals Verbalization of Acceptance of Rehab Admit Willingness to Participate in Treatment Plan and Basic Needs Utilization of Available Support Systems Psychosocial Outcome/Goals Maintain/ Improve Emotional Health Demonstrates Knowledge of Healthy Coping Mechanisms Available Cooperate/ Participate in Plan Progression Toward Outcome/Goals - Progressing Coping Progression Toward Outcome/Goals - Progressing Psychosocial DVT Prophylaxis- Improve/Maintain Start: 05/04/17 14:05 Freq: DAILY Status: Active Target: Activity Type Activity Date Activity User E-Sign Co-Sign Detail Recorded Client Recorded Date Recorded By Document 05/25/17 10:31 [id number] 05/25/17 10:32 [id number] 05/25/17 10:31 PMRU Outcome: DVT Prophylaxis Outcome/Goals Remains Free of DVT Free of complications from current DVT Complies with DVT Prophylaxis /Treatment TEDS Stockings on Every AM, Off at HS Other Outcome/Goals samantha to R leg only Progression Toward Outcome/Goals Progressing Discharge Planning - Improve/Maintain Start: 05/04/17 14:05 Freq: DAILY Status: Active Target: Activity Type Activity Date Activity User E-Sign Co-Sign Detail Recorded Client Recorded Date Recorded By Document 05/25/17 10:31 [id number] 05/25/17 10:32 [id number] 05/25/17 10:31 PMRU Outcome: Discharge Planning Identify Patient Needs yes Update Patient Family No Outcome/Goals Demonstrates Understanding of Discharge Plan Progression Toward Outcome/Goals Progressing Education-Improve/Maintain Start: 05/04/17 14:05 Freq: DAILY Status: Active Target: Activity Type Activity Date Activity User E-Sign Co-Sign Detail Recorded Client Recorded Date Recorded By Document 05/25/17 10:31 [id number] 05/25/17 10:32 [id number] 05/25/17 10:31 PMRU Outcome: Education Outcome/Goals Demonstrate/ Verbalize Understanding of Written Discharge Instructions Demonstrates Skills Encourage Questions Progression Toward Outcome/Goals Progressing /GI-Improve/Maintain Start: 05/04/17 14:05 Freq: DAILY Status: Active Target: Activity Type Activity Date Activity User E-Sign Co-Sign Detail Recorded Client Recorded Date Recorded By Document 05/25/17 10:31 [id number] 05/25/17 10:32 [id number] 05/25/17 10:31 PMRU Outcome: Genitourinary/ Gastrointestinal Genitourinary- Outcome/Goals Maintain/ Achieve Urinary Continence Maintain/ Achieve Adequate Urinary Output Gastrointestinal-Outcome/Goals Maintain/ Achieve Bowel Regularity in Accordance with Pt's Baseline Prevent Constipation Laxatives as Ordered Other Outcome/Goals metamucil given per md order, held colace and miralax d/t soft stool Progression Toward Outcome/Goals - Progressing Progression Toward Outcome/Goals - GI Progressing Medication Administration Start: 05/04/17 14:05 Freq: DAILY Status: Active Target: Activity Type Activity Date Activity User E-Sign Co-Sign Detail Recorded Client Recorded Date Recorded By Document 05/25/17 10:31 [id number] 05/25/17 10:32 [id number] 05/25/17 10:31 PMRU Outcome: Medication Administration Assess Patient Knowledge/Teach Med Yes Education for all Meds Outcome/Goals Patient Independent with Medication Administration at Home Family/ Caregiver Administer Medications at Home Progression Towards Outcome/Goals Progressing Is Patient Going Home on Lovenox? No Mobility- Improve/Maintain Start: 05/06/17 16:48 Freq: DAILY Status: Active Target: Activity Type Activity Date Activity User E-Sign Co-Sign Detail Recorded Client Recorded Date Recorded By Document 05/24/17 17:22 [id number] 05/24/17 17:22 [id number] 05/24/17 17:22 PMRU Outcome: Mobility Physical Therapy Evaluation and Yes Treatment Activity OOB with Assistance Yes NWB Yes: LLE BKA Device Yes Assistance Yes Patient to be seen 5x/wk for 60-120 min/ Therex day for: Mobility Training Gait Training W/C Mobility Balance Outcome/Goals Maintain/ Achieve Baseline Mobility Status Improve Mobility Status Demonstrates Proper Use of Assistive Devices Free from Complications of Immobility Progression Toward Outcome/Goals Progressing Bed Mobility Yes: independent Transfers Yes: independent with rolling walker Gait x ft Yes: independnet with rolling walker 50' W/C Mobility x ft Yes: independent 150 Up/Down Stairs Yes: independent up/ down 1 step with 2 rails. Neurological- Improve/Maintain Start: 05/04/17 14:05 Freq: DAILY Status: Active Target: Activity Type Activity Date Activity User E-Sign Co-Sign Detail Recorded Client Recorded Date Recorded By Document 05/25/17 10:31 [id number] 05/25/17 10:32 [id number] 05/25/17 10:31 PMRU Outcome: Neurological Weakness/Aphasia Weakness Weakness/Aphasia Comment generalized weakness improving Outcome/Goals Prevent Avoidable Neurological Decline Maintain/ Improve Strength/ROM Progression Toward Outcome/Goals Progressing Nutrition/Swallowing- Improve/Maintain Start: 05/04/17 15:31 Freq: DAILY Status: Active Target: Activity Type Activity Date Activity User E-Sign Co-Sign Detail Recorded Client Recorded Date Recorded By Document 05/25/17 11:34 [id number] [email or web address] 05/25/17 11:34 [id number] 05/25/17 11:34 PMRU Outcome: Nutrition/Swallowing Outcome/Goals Demonstrates Adequate Hydration/ Prevents Dehydration Maintain/ Improve Nutritional Status Other Outcome/Goals The patient will demonstrate safe po of thin liquid and soft solids with no overt s /s of aspiration/ penetration Progression Toward Outcome/Goals Progressing Outcome/Goals Met Comment Attempted PO trials of toast this date, however patient demonstrated clinical s/s of aspiration/ penetration; patient stated he tries to avoid bread after selecting toast for trials this date. Will attempt whole meat during tomorrow's session. Continue with current diet. Pain/Comfort- Improve/Maintain Start: 05/04/17 14:05 Freq: DAILY Status: Active Target: Activity Type Activity Date Activity User E-Sign Co-Sign Detail Recorded Client Recorded Date Recorded By Document 05/25/17 10:31 [id number] 05/25/17 10:32 [id number] 05/25/17 10:31 PMRU Outcome: Pain/Comfort Outcome/Goals Demonstrates Knowledge and Use of Available Comfort Measures Achieves Acceptable Comfort/Pain Level as Determined by Patient/Condit Maintain Comfort Level Allowing Patient to Fully Participate in Rehab Progression Toward Outcome/Goals Progressing Outcome/Goals Met Comment Oxycodone given for pain control Respiratory - Improve/Maintain Start: 05/04/17 14:05 Freq: DAILY Status: Active Target: Activity Type Activity Date Activity User E-Sign Co-Sign Detail Recorded Client Recorded Date Recorded By Document 05/25/17 10:31 [id number] 05/25/17 10:32 [id number] 05/25/17 10:31 PMRU Outcome: Respiratory Does Patient Have a Trach No Outcome/Goals Maintain/ Improve Activity Tolerance Prevent Pneumonia/ Atelectasis Remain Aspiration Free Progression Toward Outcome/Goals Progressing Safety- Improve/Maintain Start: 05/04/17 14:05 Freq: DAILY Status: Active Target: Activity Type Activity Date Activity User E-Sign Co-Sign Detail Recorded Client Recorded Date Recorded By Document 05/25/17 10:31 [id number] 05/25/17 10:32 [id number] 05/25/17 10:31 PMRU Outcome: Safety Outcome/Goals Remain Free of Injury or Harm Cooperates with Safety Measures for Least Restrictive Environment Prevent Falls/ Injury Progression Toward Outcome/Goals Progressing Outcome/Goals Met Comment PA in place Skin- Improve/Maintain Start: 05/04/17 14:05 Freq: DAILY Status: Active Target: Activity Type Activity Date Activity User E-Sign Co-Sign Detail Recorded Client Recorded Date Recorded By Document 05/25/17 10:31 [id number] 05/25/17 10:32 [id number] 05/25/17 10:31 PMRU Outcome: Skin Skin Risk Level High Skin Orders Dressing Change Teach Patient Air Mattress Spenco Boots Heels Off Bed Turn/Position q2hr While in Bed Dressing Change Comments Pt declining to wear knee immobilizer. stump acute care registered nurse on Outcome/Goals Maintain/ Improve Skin Intergrity Free from Decubitus Surgical Incisions Healing Progression Toward Outcome/Goals Progressing Outcome/Goals Met Comment pt t/p without assistance Medicine Note: Length of Stay: 1 week Anticipated Discharge Destination: Home Tentative Discharge Date: 06/01/17 Discharged to: Home
--- NOTE | 2017-05-25 17:06 | PN ---
Progress Note - Progress Note Date of Service: 05/25/17 Note: Daryn visited. He was discussed in interdisciplinary team rounds. He has made improvements and was able to hop 60 feet with a rolling walker. Transfers and toileting have also improved. Azra may yet take him home. She will have a care day tomorrow to see if she can do it. He is tolerating the advertising photographer. He may lack some extension in the left knee. INR fell, will increase Coumadin Current Medications Acetaminophen (Tylenol Tab*) 650 mg PO Q6H PRN PRN Reason: FEVER/PAIN Last Admin: 05/06/17 03:06 Dose: 650 mg Alprazolam (Xanax Tab*) 0.25 mg PO BID PRN PRN Reason: ANXIETY Atorvastatin Calcium (Lipitor*) 20 mg PO 1700 [facility] Last Admin: 05/24/17 16:29 Dose: 20 mg Bisacodyl (Dulcolax Supp*) 10 mg [place] DAILY PRN PRN Reason: CONSTIPATION Citalopram Hydrobromide (Celexa Tab*) 20 mg PO DAILY [facility] Last Admin: 05/25/17 07:40 Dose: 20 mg Cyanocobalamin (Vitamin B12 Inj *) 1,000 mcg IM Q30D [facility] Last Admin: 05/10/17 07:57 Dose: 1,000 mcg Digoxin (Lanoxin Tab*) 0.125 mg PO 1700 [facility] Last Admin: 05/24/17 16:29 Dose: 0.125 mg Diltiazem HCl (Cardizem Tab*) 30 mg PO Q6HR [facility] Last Admin: 05/25/17 11:21 Dose: Not Given Docusate Sodium (Colace Cap*) 100 mg PO BID [facility] Last Admin: 05/25/17 07:41 Dose: Not Given Famotidine (Pepcid Tab*) 20 mg PO BID [facility] Last Admin: 05/25/17 07:40 Dose: 20 mg Fluticasone Propionate (Flonase Nasal [place] 50mcg*) 2 spray BOTH NARES DAILY [facility] Last Admin: 05/25/17 07:40 Dose: 2 spray Gabapentin (Neurontin Cap(*)) 200 mg PO TID [facility] Last Admin: 05/25/17 13:03 Dose: 200 mg Magnesium Hydroxide (Milk Of Magnesia Liq*) 30 ml PO BID PRN PRN Reason: constipation Last Admin: 05/22/17 12:19 Dose: 30 ml Magnesium Oxide (Magox 400 Tab*) 400 mg PO BID [facility] Last Admin: 05/25/17 07:39 Dose: 400 mg Metoprolol Tartrate (Lopressor Tab*) 25 mg PO Q6HR [facility] Last Admin: 05/25/17 11:23 Dose: 25 mg Omeprazole (Prilosec Cap*) 20 mg PO 0600 [facility] Last Admin: 05/25/17 06:29 Dose: 20 mg Oxycodone HCl (Roxycodone Tab*) 5 mg PO Q4H PRN PRN Reason: PAIN - MODERATE TO SEVERE Last Admin: 05/25/17 13:03 Dose: 5 mg Polyethylene Glycol/Electrolytes (Miralax*) 17 gm PO DAILY [facility] Last Admin: 05/25/17 07:41 Dose: Not Given Psyllium Hydrophilic Mucilloid (Metamucil Manuel*) 1 pkt PO DAILY [facility] Last Admin: 05/25/17 07:39 Dose: 1 pkt Senna (Senokot Tab*) 2 tab PO BEDTIME [facility] Last Admin: 05/24/17 21:08 Dose: 2 tab Warfarin Sodium (Coumadin Tab(*)) 3 mg PO DAILY@1700 [facility] PRN Reason: Protocol Laboratory Results - last 24 hr 05/25/17 07:51 INR (Anticoag Therapy) 3.11 H Vital Signs Temp Pulse Resp BP Pulse Ox 98.1 F 75 18 103/53 98 05/25/17 06:28 05/25/17 11:20 05/25/17 14:42 05/25/17 11:20 05/25/17 11:20 EXAM: LUNGS: CTA HEART: S1, S2 ABDOMEN: Soft EXTREMITIES: Left stump shape changing NEUROLOGIC: Alert, may have some memory problems ASSESSMENT/PLAN: 1. Left BKA: Continue PT/OT. Stump advertising photographer as tolerated 2. Atrial Fib: increse coumadin to 3 mg. INR Tomorrow. Digoxin/Lopressor 3. Code Status: Full code 4. DVT Prophylaxis: Coumadin 5. Progress/Disposition: Pat will do family care day tomorrow to see how realistic it is to try to get him home. He has made great progress.
[2017-05-25] MEDS: Warfarin TAB(*) 3 MG PO SCH (17:41)
[2017-05-25] MEDS: Digoxin TAB* 0.125 MG PO SCH (17:41)
[2017-05-25] MEDS: Atorvastatin* 20 MG TAB PO SCH (17:41)
[2017-05-25] MEDS: Senna TAB PO SCH (20:05)
[2017-05-26] MEDS: Metoprolol Tartrate TAB* 25 MG PO SCH ×4 (00:55→17:48)
[2017-05-26] MEDS: oxyCODONE TAB* 5 MG TAB PO PRN ×4 (00:55→17:48)
[2017-05-26] MEDS: Diltiazem TAB* 30 MG PO SCH ×4 (00:55→17:48)
[2017-05-26] MEDS: Omeprazole CAP* 20 MG PO SCH (06:21)
[2017-05-26] MEDS: Polyethylene Glycol 3350* 17 GM PACKET PO SCH (08:30)
[2017-05-26] MEDS: Psyllium PAK PO SCH (08:32)
[2017-05-26] MEDS: Gabapentin CAP(*) 100 MG PO SCH ×3 (08:36→19:48)
[2017-05-26] MEDS: Magnesium Oxide TAB* 400 MG PO SCH ×2 (08:37→19:48)
[2017-05-26] MEDS: Famotidine TAB* 20 MG PO SCH ×2 (08:37→19:48)
[2017-05-26] MEDS: Docusate CAP* 100 MG PO SCH ×2 (08:37→19:48)
[2017-05-26] MEDS: Fluticasone NASAL SPRAY 50MCG* 16 gm SPRAY BTL BOTH NARES SCH (08:37)
[2017-05-26] MEDS: Citalopram TAB* 20 MG PO SCH (08:37)
[2017-05-26 09:19] LABS: Hematocrit 38 % (42-52); Hemoglobin 12.1 g/dl (14.0-18.0); Mean Corpuscular HGB Conc 32 g/dl (31-36); Mean Corpuscular Hemoglobin 28 pg (27-31); Mean Corpuscular Volume 86 fL (80-94); Mean Platelet Volume 8 um3 (7.4-10.4); Red Blood Count 4.38 10^6/ul (4.0-5.4); Red Cell Distribution Width 17 % (10.5-15); White Blood Count 4.3 10^3/ul (3.5-10.8)
[2017-05-26 09:34] LABS: BUN/Creatinine Ratio 13.3 (8-20); Calcium 8.3 mg/dL (8.6-10.3); EGFR African American 171.3 (>60); EGFR Non-African American 133.2 (>60); Globulin 2.6 g/dL (2-4); Potassium 4.5 mmol/L (3.5-5.0); Total Bilirubin 0.5 mg/dL (0.2-1.0); Total Protein 5.6 g/dL (6.4-8.9)
[2017-05-26] MEDS: Digoxin TAB* 0.125 MG PO SCH (17:48)
[2017-05-26] MEDS: Atorvastatin* 20 MG TAB PO SCH (17:48)
[2017-05-26] MEDS: Warfarin TAB(*) 3 MG PO SCH (17:51)
[2017-05-26] MEDS ORDERED: Warfarin TAB(*) 4 MG PO ONE (18:00)
--- NOTE | 2017-05-26 18:31 | PN ---
Progress Note - Progress Note Date of Service: 05/26/17 Note: Daryn visited. Therapy notes read and reviewed. Family training with Azra went well and she will take him home. He has improved a great deal in his mobility in the past two weeks. His BP is okay. HR has been controlled. May eliminate Cardizem prior to d/c. INR down today, will increase Coumadin to 4 mg Current Medications Acetaminophen (Tylenol Tab*) 650 mg PO Q6H PRN PRN Reason: FEVER/PAIN Last Admin: 05/06/17 03:06 Dose: 650 mg Alprazolam (Xanax Tab*) 0.25 mg PO BID PRN PRN Reason: ANXIETY Atorvastatin Calcium (Lipitor*) 20 mg PO 1700 [facility] Last Admin: 05/26/17 17:48 Dose: 20 mg Bisacodyl (Dulcolax Supp*) 10 mg [place] DAILY PRN PRN Reason: CONSTIPATION Citalopram Hydrobromide (Celexa Tab*) 20 mg PO DAILY [facility] Last Admin: 05/26/17 08:37 Dose: 20 mg Cyanocobalamin (Vitamin B12 Inj *) 1,000 mcg IM Q30D [facility] Last Admin: 05/10/17 07:57 Dose: 1,000 mcg Digoxin (Lanoxin Tab*) 0.125 mg PO 1700 [facility] Last Admin: 05/26/17 17:48 Dose: 0.125 mg Diltiazem HCl (Cardizem Tab*) 30 mg PO Q6HR [facility] Last Admin: 05/26/17 17:48 Dose: 30 mg Docusate Sodium (Colace Cap*) 100 mg PO BID [facility] Last Admin: 05/26/17 08:37 Dose: 100 mg Famotidine (Pepcid Tab*) 20 mg PO BID [facility] Last Admin: 05/26/17 08:37 Dose: 20 mg Fluticasone Propionate (Flonase Nasal [place] 50mcg*) 2 spray BOTH NARES DAILY [facility] Last Admin: 05/26/17 08:37 Dose: 2 spray Gabapentin (Neurontin Cap(*)) 200 mg PO TID [facility] Last Admin: 05/26/17 13:21 Dose: 200 mg Magnesium Hydroxide (Milk Of Magnesia Liq*) 30 ml PO BID PRN PRN Reason: constipation Last Admin: 05/22/17 12:19 Dose: 30 ml Magnesium Oxide (Magox 400 Tab*) 400 mg PO BID [facility] Last Admin: 05/26/17 08:37 Dose: 400 mg Metoprolol Tartrate (Lopressor Tab*) 25 mg PO Q6HR [facility] Last Admin: 05/26/17 17:48 Dose: 25 mg Omeprazole (Prilosec Cap*) 20 mg PO 0600 [facility] Last Admin: 05/26/17 06:21 Dose: 20 mg Oxycodone HCl (Roxycodone Tab*) 5 mg PO Q4H PRN PRN Reason: PAIN - MODERATE TO SEVERE Last Admin: 05/26/17 17:48 Dose: 5 mg Polyethylene Glycol/Electrolytes (Miralax*) 17 gm PO DAILY [facility] Last Admin: 05/26/17 08:30 Dose: Not Given Psyllium Hydrophilic Mucilloid (Metamucil Manuel*) 1 pkt PO DAILY [facility] Last Admin: 05/26/17 08:32 Dose: Not Given Senna (Senokot Tab*) 2 tab PO BEDTIME [facility] Last Admin: 05/25/17 20:05 Dose: Not Given Warfarin Sodium (Coumadin Tab(*)) 4 mg PO DAILY@1700 [facility] PRN Reason: Protocol Laboratory Results - last 24 hr 05/26/17 05/26/17 05/26/17 09:00 09:00 09:00 WBC 4.3 RBC 4.38 Hgb 12.1 L Hct 38 L MCV 86 MCH 28 MCHC 32 RDW 17 H Plt Count 188 MPV 8 Neut % (Auto) 45.7 Lymph % (Auto) 44.9 [place] % (Auto) 6.1 Eos % (Auto) 1.4 Baso % (Auto) 1.9 Absolute Neuts (auto) 2.0 Absolute Lymphs (auto) 1.9 Absolute Monos (auto) 0.3 Absolute Eos (auto) 0.1 Absolute Basos (auto) 0.1 Absolute Nucleated RBC 0.01 Nucleated RBC % 0.2 INR (Anticoag Therapy) 2.62 H Sodium 136 Potassium 4.5 Chloride 100 L Carbon Dioxide 28 Anion Gap 8 BUN 8 Creatinine 0.60 L Est GFR ( Amer) 171.3 Est GFR (Non-Af Amer) 133.2 BUN/Creatinine Ratio 13.3 Glucose 152 H Calcium 8.3 L Total Bilirubin 0.50 AST 14 ALT 13 Alkaline Phosphatase 106 H Total Protein 5.6 L Albumin 3.0 L Globulin 2.6 Albumin/Globulin Ratio 1.2 Vital Signs Temp Pulse Resp BP Pulse Ox 98.8 F 100 16 115/51 90 05/26/17 15:50 05/26/17 17:48 05/26/17 17:55 05/26/17 17:42 05/26/17 15:50 EXAM: LUNGS: CTA HEART: S1, S2 ABDOMEN: Soft EXTREMITIES: Left stump shape changing NEUROLOGIC: Alert, memory improving ASSESSMENT/PLAN: 1. Left BKA: Continue PT/OT. Stump merchandise planning manager as tolerated. Dr. Merida's office has said it's okay to remove sutures tomorrow 2. Atrial Fib: increse coumadin to 4 mg. INR Tomorrow. Digoxin/Lopressor/ Cardizem 3. Code Status: Full code 4. DVT Prophylaxis: Coumadin 5. Progress/Disposition: Azra will take him home on June 01. He has made great progress.
[2017-05-26] MEDS: Senna TAB PO SCH (19:50)
[2017-05-27] MEDS: Diltiazem TAB* 30 MG PO SCH ×4 (00:28→17:44)
[2017-05-27] MEDS: Omeprazole CAP* 20 MG PO SCH (06:40)
[2017-05-27] MEDS: Polyethylene Glycol 3350* 17 GM PACKET PO SCH (09:20)
[2017-05-27] MEDS: Citalopram TAB* 20 MG PO SCH (09:23)
[2017-05-27] MEDS: Magnesium Oxide TAB* 400 MG PO SCH ×2 (09:23→20:50)
[2017-05-27] MEDS: Psyllium PAK PO SCH (09:23)
[2017-05-27] MEDS: Gabapentin CAP(*) 100 MG PO SCH ×3 (09:23→20:51)
[2017-05-27] MEDS: Famotidine TAB* 20 MG PO SCH ×2 (09:23→20:51)
[2017-05-27] MEDS: Metoprolol Tartrate TAB* 50 mg PO SCH ×2 (09:23→20:50)
[2017-05-27] MEDS: Docusate CAP* 100 MG PO SCH ×2 (09:23→20:51)
[2017-05-27] MEDS: Fluticasone NASAL SPRAY 50MCG* 16 gm SPRAY BTL BOTH NARES SCH (09:23)
[2017-05-27] MEDS: oxyCODONE TAB* 5 MG TAB PO PRN ×3 (09:23→18:07)
[2017-05-27] MEDS: Warfarin TAB(*) 4 MG PO SCH (17:37)
[2017-05-27] MEDS: Digoxin TAB* 0.125 MG PO SCH (17:38)
[2017-05-27] MEDS: Atorvastatin* 20 MG TAB PO SCH (17:38)
--- NOTE | 2017-05-27 18:36 | PN ---
Progress Note - Progress Note Date of Service: 05/27/17 Note: Daryn visited. Therapy notes read and reviewed. His sutures were removed without difficulty. Areas of eschar along the suture line, but it is healing. Red areas on posterior part of stump slowly healing. Pat is working to bring him home. Pain is better controlled. Current Medications Acetaminophen (Tylenol Tab*) 650 mg PO Q6H PRN PRN Reason: FEVER/PAIN Last Admin: 05/06/17 03:06 Dose: 650 mg Alprazolam (Xanax Tab*) 0.25 mg PO BID PRN PRN Reason: ANXIETY Atorvastatin Calcium (Lipitor*) 20 mg PO 1700 [facility] Last Admin: 05/27/17 17:38 Dose: 20 mg Bisacodyl (Dulcolax Supp*) 10 mg [place] DAILY PRN PRN Reason: CONSTIPATION Citalopram Hydrobromide (Celexa Tab*) 20 mg PO DAILY [facility] Last Admin: 05/27/17 09:23 Dose: 20 mg Cyanocobalamin (Vitamin B12 Inj *) 1,000 mcg IM Q30D [facility] Last Admin: 05/10/17 07:57 Dose: 1,000 mcg Digoxin (Lanoxin Tab*) 0.125 mg PO 1700 [facility] Last Admin: 05/27/17 17:38 Dose: 0.125 mg Diltiazem HCl (Cardizem Tab*) 30 mg PO Q6HR [facility] Last Admin: 05/27/17 17:44 Dose: 30 mg Docusate Sodium (Colace Cap*) 100 mg PO BID [facility] Last Admin: 05/27/17 09:23 Dose: 100 mg Famotidine (Pepcid Tab*) 20 mg PO BID [facility] Last Admin: 05/27/17 09:23 Dose: 20 mg Fluticasone Propionate (Flonase Nasal [place] 50mcg*) 2 spray BOTH NARES DAILY [facility] Last Admin: 05/27/17 09:23 Dose: 2 spray Gabapentin (Neurontin Cap(*)) 200 mg PO TID [facility] Last Admin: 05/27/17 13:24 Dose: 200 mg Magnesium Hydroxide (Milk Of Magnesia Liq*) 30 ml PO BID PRN PRN Reason: constipation Last Admin: 05/22/17 12:19 Dose: 30 ml Magnesium Oxide (Magox 400 Tab*) 400 mg PO BID [facility] Last Admin: 05/27/17 09:23 Dose: 400 mg Metoprolol Tartrate (Lopressor Tab*) 50 mg PO BID [facility] Last Admin: 05/27/17 09:23 Dose: 50 mg Omeprazole (Prilosec Cap*) 20 mg PO 0600 [facility] Last Admin: 05/27/17 06:40 Dose: 20 mg Oxycodone HCl (Roxycodone Tab*) 5 mg PO Q4H PRN PRN Reason: PAIN - MODERATE TO SEVERE Last Admin: 05/27/17 18:07 Dose: 5 mg Polyethylene Glycol/Electrolytes (Miralax*) 17 gm PO DAILY [facility] Last Admin: 05/27/17 09:20 Dose: Not Given Psyllium Hydrophilic Mucilloid (Metamucil Manuel*) 1 pkt PO DAILY [facility] Last Admin: 05/27/17 09:23 Dose: 1 pkt Senna (Senokot Tab*) 2 tab PO BEDTIME [facility] Last Admin: 05/26/17 19:50 Dose: 2 tab Warfarin Sodium (Coumadin Tab(*)) 4 mg PO DAILY@1700 [facility] PRN Reason: Protocol Last Admin: 05/27/17 17:37 Dose: 4 mg Vital Signs Temp Pulse Resp BP Pulse Ox 98.5 F 88 18 103/43 97 05/27/17 16:14 05/27/17 17:38 05/27/17 18:07 05/27/17 16:14 05/27/17 18:21 EXAM: LUNGS: CTA HEART: S1, S2 ABDOMEN: Soft EXTREMITIES: Left stump suture line ok. Red areas of posterior stump healing NEUROLOGIC: Alert, memory improving ASSESSMENT/PLAN: 1. Left BKA: Continue PT/OT. Stump spiral tube winder helper as tolerated. removed sutures today 2. Atrial Fib: continue coumadin to 4 mg. INR Tomorrow. Digoxin/Lopressor/ Cardizem 3. Code Status: Full code 4. DVT Prophylaxis: Coumadin 5. Progress/Disposition: Pat will take him home on June 01. He has made great progress.
[2017-05-27] MEDS: Senna TAB PO SCH (20:50)
[2017-05-28] MEDS: Diltiazem TAB* 30 MG PO SCH ×5 (00:48→23:52)
[2017-05-28] MEDS: Omeprazole CAP* 20 MG PO SCH (06:26)
[2017-05-28] MEDS: Gabapentin CAP(*) 100 MG PO SCH ×3 (08:21→21:47)
[2017-05-28] MEDS: Magnesium Oxide TAB* 400 MG PO SCH ×2 (08:21→21:48)
[2017-05-28] MEDS: Citalopram TAB* 20 MG PO SCH (08:21)
[2017-05-28] MEDS: Metoprolol Tartrate TAB* 50 mg PO SCH ×2 (08:21→21:47)
[2017-05-28] MEDS: Famotidine TAB* 20 MG PO SCH ×2 (08:21→21:48)
[2017-05-28] MEDS: oxyCODONE TAB* 5 MG TAB PO PRN ×3 (08:21→18:15)
[2017-05-28] MEDS: Psyllium PAK PO SCH (08:22)
[2017-05-28] MEDS: Fluticasone NASAL SPRAY 50MCG* 16 gm SPRAY BTL BOTH NARES SCH (08:22)
[2017-05-28] MEDS: Docusate CAP* 100 MG PO SCH ×2 (09:23→21:48)
[2017-05-28] MEDS: Polyethylene Glycol 3350* 17 GM PACKET PO SCH (09:23)
[2017-05-28] MEDS: Digoxin TAB* 0.125 MG PO SCH (16:40)
[2017-05-28] MEDS: Atorvastatin* 20 MG TAB PO SCH (16:40)
[2017-05-28] MEDS: Warfarin TAB(*) 4 MG PO SCH (16:40)
--- NOTE | 2017-05-28 19:02 | PN ---
Progress Note - Progress Note Date of Service: 05/28/17 Note: Daryn visited. Therapy notes read and reviewed. He practiced car transfers today and believes they went well. Continues to get stronger and is readying for discharge next week. Current Medications Acetaminophen (Tylenol Tab*) 650 mg PO Q6H PRN PRN Reason: FEVER/PAIN Last Admin: 05/06/17 03:06 Dose: 650 mg Alprazolam (Xanax Tab*) 0.25 mg PO BID PRN PRN Reason: ANXIETY Atorvastatin Calcium (Lipitor*) 20 mg PO 1700 [facility] Last Admin: 05/28/17 16:40 Dose: 20 mg Bisacodyl (Dulcolax Supp*) 10 mg [place] DAILY PRN PRN Reason: CONSTIPATION Citalopram Hydrobromide (Celexa Tab*) 20 mg PO DAILY [facility] Last Admin: 05/28/17 08:21 Dose: 20 mg Cyanocobalamin (Vitamin B12 Inj *) 1,000 mcg IM Q30D [facility] Last Admin: 05/10/17 07:57 Dose: 1,000 mcg Digoxin (Lanoxin Tab*) 0.125 mg PO 1700 [facility] Last Admin: 05/28/17 16:40 Dose: 0.125 mg Diltiazem HCl (Cardizem Tab*) 30 mg PO Q6HR [facility] Last Admin: 05/28/17 18:13 Dose: 30 mg Docusate Sodium (Colace Cap*) 100 mg PO BID [facility] Last Admin: 05/28/17 09:23 Dose: Not Given Famotidine (Pepcid Tab*) 20 mg PO BID [facility] Last Admin: 05/28/17 08:21 Dose: 20 mg Fluticasone Propionate (Flonase Nasal [place] 50mcg*) 2 spray BOTH NARES DAILY [facility] Last Admin: 05/28/17 08:22 Dose: 2 spray Gabapentin (Neurontin Cap(*)) 200 mg PO TID [facility] Last Admin: 05/28/17 14:24 Dose: 200 mg Magnesium Hydroxide (Milk Of Magnesia Liq*) 30 ml PO BID PRN PRN Reason: constipation Last Admin: 05/22/17 12:19 Dose: 30 ml Magnesium Oxide (Magox 400 Tab*) 400 mg PO BID [facility] Last Admin: 05/28/17 08:21 Dose: 400 mg Metoprolol Tartrate (Lopressor Tab*) 50 mg PO BID [facility] Last Admin: 05/28/17 08:21 Dose: 50 mg Omeprazole (Prilosec Cap*) 20 mg PO 0600 [facility] Last Admin: 05/28/17 06:26 Dose: 20 mg Oxycodone HCl (Roxycodone Tab*) 5 mg PO Q4H PRN PRN Reason: PAIN - MODERATE TO SEVERE Last Admin: 05/28/17 18:15 Dose: 5 mg Polyethylene Glycol/Electrolytes (Miralax*) 17 gm PO DAILY [facility] Last Admin: 05/28/17 09:23 Dose: Not Given Psyllium Hydrophilic Mucilloid (Metamucil Manuel*) 1 pkt PO DAILY [facility] Last Admin: 05/28/17 08:22 Dose: 1 pkt Senna (Senokot Tab*) 2 tab PO BEDTIME [facility] Last Admin: 05/27/17 20:50 Dose: 2 tab Warfarin Sodium (Coumadin Tab(*)) 4 mg PO DAILY@1700 [facility] PRN Reason: Protocol Last Admin: 05/28/17 16:40 Dose: 4 mg Laboratory Results - last 24 hr 05/28/17 10:14 INR (Anticoag Therapy) 2.49 H Vital Signs Temp Pulse Resp BP Pulse Ox 97.8 F 76 16 127/52 99 05/28/17 15:52 05/28/17 18:08 05/28/17 18:15 05/28/17 18:08 05/28/17 18:39 EXAM: LUNGS: CTA HEART: S1, S2 ABDOMEN: Soft EXTREMITIES: Left stump suture line ok. Red areas of posterior stump healing NEUROLOGIC: Alert, memory improving ASSESSMENT/PLAN: 1. Left BKA: Continue PT/OT. Stump bottom cementer as tolerated. removed sutures today 2. Atrial Fib: continue coumadin 4 mg. INR Wednesday. Digoxin/Lopressor/Cardizem 3. Code Status: Full code 4. DVT Prophylaxis: Coumadin 5. Progress/Disposition: Pat will take him home on June 01. He has made great progress.
[2017-05-28] MEDS: Senna TAB PO SCH (21:48)
[2017-05-29] MEDS: Omeprazole CAP* 20 MG PO SCH (05:50)
[2017-05-29] MEDS: Diltiazem TAB* 30 MG PO SCH ×3 (05:50→17:09)
[2017-05-29] MEDS: Magnesium Oxide TAB* 400 MG PO SCH ×2 (09:32→21:55)
[2017-05-29] MEDS: Citalopram TAB* 20 MG PO SCH (09:32)
[2017-05-29] MEDS: Fluticasone NASAL SPRAY 50MCG* 16 gm SPRAY BTL BOTH NARES SCH (09:32)
[2017-05-29] MEDS: Metoprolol Tartrate TAB* 50 mg PO SCH ×2 (09:32→21:56)
[2017-05-29] MEDS: Psyllium PAK PO SCH (09:32)
[2017-05-29] MEDS: Famotidine TAB* 20 MG PO SCH ×2 (09:33→21:55)
[2017-05-29] MEDS: oxyCODONE TAB* 5 MG TAB PO PRN ×3 (09:33→19:16)
[2017-05-29] MEDS: Gabapentin CAP(*) 100 MG PO SCH ×3 (09:33→21:53)
[2017-05-29] MEDS: Docusate CAP* 100 MG PO SCH ×2 (09:37→21:45)
[2017-05-29] MEDS: Polyethylene Glycol 3350* 17 GM PACKET PO SCH (09:37)
[2017-05-29] MEDS: Warfarin TAB(*) 4 MG PO SCH (17:09)
[2017-05-29] MEDS: Atorvastatin* 20 MG TAB PO SCH (17:09)
[2017-05-29] MEDS: Digoxin TAB* 0.125 MG PO SCH (17:10)
--- NOTE | 2017-05-29 19:07 | PN ---
Progress Note - Progress Note Date of Service: 05/29/17 Note: Daryn visited. He is doing well. Able to hop to bathroom. Excited to go home Wednesday. Pain well controlled. Current Medications Acetaminophen (Tylenol Tab*) 650 mg PO Q6H PRN PRN Reason: FEVER/PAIN Last Admin: 05/06/17 03:06 Dose: 650 mg Alprazolam (Xanax Tab*) 0.25 mg PO BID PRN PRN Reason: ANXIETY Atorvastatin Calcium (Lipitor*) 20 mg PO 1700 [facility] Last Admin: 05/29/17 17:09 Dose: 20 mg Bisacodyl (Dulcolax Supp*) 10 mg [place] DAILY PRN PRN Reason: CONSTIPATION Citalopram Hydrobromide (Celexa Tab*) 20 mg PO DAILY [facility] Last Admin: 05/29/17 09:32 Dose: 20 mg Cyanocobalamin (Vitamin B12 Inj *) 1,000 mcg IM Q30D [facility] Last Admin: 05/10/17 07:57 Dose: 1,000 mcg Digoxin (Lanoxin Tab*) 0.125 mg PO 1700 [facility] Last Admin: 05/29/17 17:10 Dose: 0.125 mg Diltiazem HCl (Cardizem Tab*) 30 mg PO Q6HR [facility] Last Admin: 05/29/17 17:09 Dose: 30 mg Docusate Sodium (Colace Cap*) 100 mg PO BID [facility] Last Admin: 05/29/17 09:37 Dose: Not Given Famotidine (Pepcid Tab*) 20 mg PO BID [facility] Last Admin: 05/29/17 09:33 Dose: 20 mg Fluticasone Propionate (Flonase Nasal [place] 50mcg*) 2 spray BOTH NARES DAILY [facility] Last Admin: 05/29/17 09:32 Dose: 2 spray Gabapentin (Neurontin Cap(*)) 200 mg PO TID [facility] Last Admin: 05/29/17 13:45 Dose: 200 mg Magnesium Hydroxide (Milk Of Magnesia Liq*) 30 ml PO BID PRN PRN Reason: constipation Last Admin: 05/22/17 12:19 Dose: 30 ml Magnesium Oxide (Magox 400 Tab*) 400 mg PO BID [facility] Last Admin: 05/29/17 09:32 Dose: 400 mg Metoprolol Tartrate (Lopressor Tab*) 50 mg PO BID [facility] Last Admin: 05/29/17 09:32 Dose: 50 mg Omeprazole (Prilosec Cap*) 20 mg PO 0600 [facility] Last Admin: 05/29/17 05:50 Dose: 20 mg Oxycodone HCl (Roxycodone Tab*) 5 mg PO Q4H PRN PRN Reason: PAIN - MODERATE TO SEVERE Last Admin: 05/29/17 13:44 Dose: 5 mg Polyethylene Glycol/Electrolytes (Miralax*) 17 gm PO DAILY [facility] Last Admin: 05/29/17 09:37 Dose: Not Given Psyllium Hydrophilic Mucilloid (Metamucil Manuel*) 1 pkt PO DAILY [facility] Last Admin: 05/29/17 09:32 Dose: 1 pkt Senna (Senokot Tab*) 2 tab PO BEDTIME [facility] Last Admin: 05/28/17 21:48 Dose: Not Given Warfarin Sodium (Coumadin Tab(*)) 4 mg PO DAILY@1700 [facility] PRN Reason: Protocol Last Admin: 05/29/17 17:09 Dose: 4 mg Vital Signs Temp Pulse Resp BP Pulse Ox 97.7 F 70 18 114/49 97 05/29/17 16:31 05/29/17 17:10 05/29/17 16:31 05/29/17 16:31 05/29/17 16:31 EXAM: LUNGS: CTA HEART: S1, S2 ABDOMEN: Soft EXTREMITIES: Left stump suture line ok. Red areas of posterior stump healing NEUROLOGIC: Alert, memory improving ASSESSMENT/PLAN: 1. Left BKA: Continue PT/OT. Stump word processor as tolerated. removed sutures 2. Atrial Fib: continue coumadin 4 mg. INR Wednesday. Digoxin/Lopressor/Cardizem 3. Code Status: Full code 4. DVT Prophylaxis: Coumadin 5. Progress/Disposition: Pat will take him home on June 01. He has made great progress and is excited to go home.
[2017-05-29] MEDS: Senna TAB PO SCH (21:46)
[2017-05-30] MEDS: oxyCODONE TAB* 5 MG TAB PO PRN ×3 (00:18→13:40)
[2017-05-30] MEDS: Diltiazem TAB* 30 MG PO SCH ×4 (00:21→17:08)
[2017-05-30] MEDS: Omeprazole CAP* 20 MG PO SCH (06:41)
[2017-05-30] MEDS: Psyllium PAK PO SCH (09:30)
[2017-05-30] MEDS: Fluticasone NASAL SPRAY 50MCG* 16 gm SPRAY BTL BOTH NARES SCH (09:30)
[2017-05-30] MEDS: Famotidine TAB* 20 MG PO SCH ×2 (09:32→21:28)
[2017-05-30] MEDS: Citalopram TAB* 20 MG PO SCH (09:32)
[2017-05-30] MEDS: Magnesium Oxide TAB* 400 MG PO SCH ×2 (09:32→21:28)
[2017-05-30] MEDS: Metoprolol Tartrate TAB* 50 mg PO SCH ×2 (09:32→21:28)
[2017-05-30] MEDS: Gabapentin CAP(*) 100 MG PO SCH ×3 (09:32→21:25)
[2017-05-30] MEDS: Docusate CAP* 100 MG PO SCH ×2 (09:33→21:28)
[2017-05-30] MEDS: Polyethylene Glycol 3350* 17 GM PACKET PO SCH (10:27)
--- NOTE | 2017-05-30 16:34 | PN ---
Progress Note - Progress Note Date of Service: 05/30/17 Note: Daryn visited. He notes some periodic pain in his stump but he feels like he is doing better and is ready to go home on Wednesday. He is a lot stronger than he was. Current Medications Acetaminophen (Tylenol Tab*) 650 mg PO Q6H PRN PRN Reason: FEVER/PAIN Last Admin: 05/06/17 03:06 Dose: 650 mg Alprazolam (Xanax Tab*) 0.25 mg PO BID PRN PRN Reason: ANXIETY Atorvastatin Calcium (Lipitor*) 20 mg PO 1700 [facility] Last Admin: 05/29/17 17:09 Dose: 20 mg Bisacodyl (Dulcolax Supp*) 10 mg [place] DAILY PRN PRN Reason: CONSTIPATION Citalopram Hydrobromide (Celexa Tab*) 20 mg PO DAILY [facility] Last Admin: 05/30/17 09:32 Dose: 20 mg Cyanocobalamin (Vitamin B12 Inj *) 1,000 mcg IM Q30D [facility] Last Admin: 05/10/17 07:57 Dose: 1,000 mcg Digoxin (Lanoxin Tab*) 0.125 mg PO 1700 [facility] Last Admin: 05/29/17 17:10 Dose: 0.125 mg Diltiazem HCl (Cardizem Tab*) 30 mg PO Q6HR [facility] Last Admin: 05/30/17 11:48 Dose: Not Given Docusate Sodium (Colace Cap*) 100 mg PO BID [facility] Last Admin: 05/30/17 09:33 Dose: 100 mg Famotidine (Pepcid Tab*) 20 mg PO BID [facility] Last Admin: 05/30/17 09:32 Dose: 20 mg Fluticasone Propionate (Flonase Nasal [place] 50mcg*) 2 spray BOTH NARES DAILY [facility] Last Admin: 05/30/17 09:30 Dose: 2 spray Gabapentin (Neurontin Cap(*)) 200 mg PO TID [facility] Last Admin: 05/30/17 13:40 Dose: 200 mg Magnesium Hydroxide (Milk Of Magnesia Liq*) 30 ml PO BID PRN PRN Reason: constipation Last Admin: 05/22/17 12:19 Dose: 30 ml Magnesium Oxide (Magox 400 Tab*) 400 mg PO BID [facility] Last Admin: 05/30/17 09:32 Dose: 400 mg Metoprolol Tartrate (Lopressor Tab*) 50 mg PO BID [facility] Last Admin: 05/30/17 09:32 Dose: 50 mg Omeprazole (Prilosec Cap*) 20 mg PO 0600 [facility] Last Admin: 05/30/17 06:41 Dose: 20 mg Oxycodone HCl (Roxycodone Tab*) 5 mg PO Q4H PRN PRN Reason: PAIN - MODERATE TO SEVERE Last Admin: 05/30/17 13:40 Dose: 5 mg Polyethylene Glycol/Electrolytes (Miralax*) 17 gm PO DAILY [facility] Last Admin: 05/30/17 10:27 Dose: Not Given Psyllium Hydrophilic Mucilloid (Metamucil Manuel*) 1 pkt PO DAILY [facility] Last Admin: 05/30/17 09:30 Dose: 1 pkt Senna (Senokot Tab*) 2 tab PO BEDTIME [facility] Last Admin: 05/29/17 21:46 Dose: Not Given Warfarin Sodium (Coumadin Tab(*)) 4 mg PO DAILY@1700 [facility] PRN Reason: Protocol Last Admin: 05/29/17 17:09 Dose: 4 mg Vital Signs Temp Pulse Resp BP Pulse Ox 98.4 F 99 18 104/49 97 05/30/17 15:17 05/30/17 15:17 05/30/17 15:25 05/30/17 15:17 05/30/17 15:17 EXAM: LUNGS: CTA HEART: S1, S2 ABDOMEN: Soft EXTREMITIES: Left stump suture line ok. Red areas on posterior stump healing NEUROLOGIC: Alert, memory improving ASSESSMENT/PLAN: 1. Left BKA: Continue PT/OT. Stump direct chill caster as tolerated. removed sutures 2. Atrial Fib: continue coumadin 4 mg. INR Tomorrow. Digoxin/Lopressor/Cardizem 3. Code Status: Full code 4. DVT Prophylaxis: Coumadin 5. Progress/Disposition: Pat will take him home on June 01. He has made great progress and remains excited to go home.
[2017-05-30] MEDS: Digoxin TAB* 0.125 MG PO SCH (17:09)
[2017-05-30] MEDS: Atorvastatin* 20 MG TAB PO SCH (17:09)
[2017-05-30] MEDS: Warfarin TAB(*) 4 MG PO SCH (17:09)
[2017-05-30] MEDS: Senna TAB PO SCH (21:27)
[2017-05-31] MEDS: Diltiazem TAB* 30 MG PO SCH ×3 (00:41→12:20)
[2017-05-31] MEDS: oxyCODONE TAB* 5 MG TAB PO PRN ×3 (03:24→19:14)
[2017-05-31] MEDS: Omeprazole CAP* 20 MG PO SCH (06:10)
[2017-05-31] MEDS: Gabapentin CAP(*) 100 MG PO SCH ×3 (09:22→20:23)
[2017-05-31] MEDS: Citalopram TAB* 20 MG PO SCH (09:24)
[2017-05-31] MEDS: Metoprolol Tartrate TAB* 50 mg PO SCH ×2 (09:24→20:23)
[2017-05-31] MEDS: Docusate CAP* 100 MG PO SCH ×2 (09:24→20:23)
[2017-05-31] MEDS: Magnesium Oxide TAB* 400 MG PO SCH ×2 (09:24→20:23)
[2017-05-31] MEDS: Polyethylene Glycol 3350* 17 GM PACKET PO SCH ×2 (09:24→09:29)
[2017-05-31] MEDS: Famotidine TAB* 20 MG PO SCH ×2 (09:24→20:23)
[2017-05-31] MEDS: Fluticasone NASAL SPRAY 50MCG* 16 gm SPRAY BTL BOTH NARES SCH (09:24)
[2017-05-31] MEDS: Psyllium PAK PO SCH (09:25)
--- NOTE | 2017-05-31 17:08 | PN ---
Progress Note - Progress Note Date of Service: 05/31/17 Note: Daryn visited. He is set for discharge in the morning. His INR was supratherapeutic today. Will likely go home on Coumadin 2.5 mg. He has three small areas of erythema on right foot that Pat is concerned about. Not terribly worrisome yet. He will follow up with Dr. Merida Current Medications Acetaminophen (Tylenol Tab*) 650 mg PO Q6H PRN PRN Reason: FEVER/PAIN Last Admin: 05/06/17 03:06 Dose: 650 mg Alprazolam (Xanax Tab*) 0.25 mg PO BID PRN PRN Reason: ANXIETY Atorvastatin Calcium (Lipitor*) 20 mg PO 1700 [facility] Last Admin: 05/30/17 17:09 Dose: 20 mg Bisacodyl (Dulcolax Supp*) 10 mg [place] DAILY PRN PRN Reason: CONSTIPATION Citalopram Hydrobromide (Celexa Tab*) 20 mg PO DAILY [facility] Last Admin: 05/31/17 09:24 Dose: 20 mg Cyanocobalamin (Vitamin B12 Inj *) 1,000 mcg IM Q30D [facility] Last Admin: 05/10/17 07:57 Dose: 1,000 mcg Digoxin (Lanoxin Tab*) 0.125 mg PO 1700 [facility] Last Admin: 05/30/17 17:09 Dose: 0.125 mg Docusate Sodium (Colace Cap*) 100 mg PO BID [facility] Last Admin: 05/31/17 09:24 Dose: 100 mg Famotidine (Pepcid Tab*) 20 mg PO BID [facility] Last Admin: 05/31/17 09:24 Dose: 20 mg Fluticasone Propionate (Flonase Nasal [place] 50mcg*) 2 spray BOTH NARES DAILY [facility] Last Admin: 05/31/17 09:24 Dose: 2 spray Gabapentin (Neurontin Cap(*)) 200 mg PO TID [facility] Last Admin: 05/31/17 14:32 Dose: 200 mg Magnesium Hydroxide (Milk Of Magnesia Liq*) 30 ml PO BID PRN PRN Reason: constipation Last Admin: 05/22/17 12:19 Dose: 30 ml Magnesium Oxide (Magox 400 Tab*) 400 mg PO BID [facility] Last Admin: 05/31/17 09:24 Dose: 400 mg Metoprolol Tartrate (Lopressor Tab*) 50 mg PO BID [facility] Last Admin: 05/31/17 09:24 Dose: 50 mg Omeprazole (Prilosec Cap*) 20 mg PO 0600 [facility] Last Admin: 05/31/17 06:10 Dose: 20 mg Oxycodone HCl (Roxycodone Tab*) 5 mg PO Q4H PRN PRN Reason: PAIN - MODERATE TO SEVERE Last Admin: 05/31/17 12:22 Dose: 5 mg Polyethylene Glycol/Electrolytes (Miralax*) 17 gm PO DAILY [facility] Last Admin: 05/31/17 09:29 Dose: Not Given Psyllium Hydrophilic Mucilloid (Metamucil Manuel*) 1 pkt PO DAILY [facility] Last Admin: 05/31/17 09:25 Dose: 1 pkt Senna (Senokot Tab*) 2 tab PO BEDTIME [facility] Last Admin: 05/30/17 21:27 Dose: 2 tab Laboratory Results - last 24 hr 05/31/17 07:46 INR (Anticoag Therapy) 3.98 H Vital Signs Temp Pulse Resp BP Pulse Ox 97.9 F 92 16 104/53 98 05/31/17 15:49 05/31/17 15:49 05/31/17 15:49 05/31/17 15:49 05/31/17 15:49 EXAM: LUNGS: CTA HEART: S1, S2 ABDOMEN: Soft EXTREMITIES: Left stump suture line ok. Red areas on posterior stump healing. Small 5 mm area of ertyhema on right toe. NEUROLOGIC: Alert, memory improving ASSESSMENT/PLAN: 1. Left BKA: Continue PT/OT. Stump fertilizer mixer as tolerated. removed sutures 2. Atrial Fib: hold coumadin. INR Tomorrow. Digoxin/Lopressor/Cardizem 3. Code Status: Full code 4. DVT Prophylaxis: Coumadin 5. Progress/Disposition: Pat will take him home on June 01. He has made great progress and remains excited to go home.
[2017-05-31] MEDS: Digoxin TAB* 0.125 MG PO SCH (17:17)
[2017-05-31] MEDS: Atorvastatin* 20 MG TAB PO SCH (17:17)
[2017-05-31] MEDS: Senna TAB PO SCH (20:23)
[2017-06-01] MEDS: oxyCODONE TAB* 5 MG TAB PO PRN ×2 (01:04→08:55)
[2017-06-01 05:41] VITALS: BP 125/58
[2017-06-01] MEDS: Omeprazole CAP* 20 MG PO SCH (05:57)
[2017-06-01] MEDS: Fluticasone NASAL SPRAY 50MCG* 16 gm SPRAY BTL BOTH NARES SCH (08:54)
[2017-06-01] MEDS: Metoprolol Tartrate TAB* 50 mg PO SCH (08:54)
[2017-06-01] MEDS: Psyllium PAK PO SCH (08:54)
[2017-06-01] MEDS: Gabapentin CAP(*) 100 MG PO SCH (08:54)
[2017-06-01] MEDS: Famotidine TAB* 20 MG PO SCH (08:55)
[2017-06-01] MEDS: Citalopram TAB* 20 MG PO SCH (08:55)
[2017-06-01] MEDS: Magnesium Oxide TAB* 400 MG PO SCH (08:55)
[2017-06-01] MEDS: Docusate CAP* 100 MG PO SCH (08:59)
[2017-06-01] MEDS: Polyethylene Glycol 3350* 17 GM PACKET PO SCH (08:59)
[2017-06-01] MEDS ORDERED: Warfarin TAB(*) 2.5 MG PO SCH (17:00)
== END 2017-06-01 11:58 | disposition home health service (06) | DRG 560 ==
LOC: PMRU 12:00
PROVIDERS: ADMIT Physical Medicine & Rehabilitation; ATTEND Physical Medicine & Rehabilitation
PROC: F07Z5ZZ Bed Mobility Treatment (ICD-10-PCS; principal; 2017-05-04)
PROC: F07Z9ZZ Gait Training/Functional Ambulation Treatment (ICD-10-PCS; 2017-05-04)
PROC: F07Z8ZZ Transfer Training Treatment (ICD-10-PCS; 2017-05-04)
PROC: F07Z4ZZ Wheelchair Mobility Treatment (ICD-10-PCS; 2017-05-04)
PROC: F08Z0ZZ Bathing/Showering Techniques Treatment (ICD-10-PCS; 2017-05-04)
PROC: F08Z1ZZ Dressing Techniques Treatment (ICD-10-PCS; 2017-05-04)
PROC: F08Z3ZZ Feeding/Eating Treatment (ICD-10-PCS; 2017-05-04)
PROC: F06ZDZZ Swallowing Dysfunction Treatment (ICD-10-PCS; 2017-05-04)
DX: Z47.81 Encounter for orthopedic aftercare following surgical amputation (principal); I42.9 Cardiomyopathy, unspecified; Z89.512 Acquired absence of left leg below knee; I48.91 Unspecified atrial fibrillation; R13.10 Dysphagia, unspecified; I08.3 Combined rheumatic disorders of mitral, aortic and tricuspid valves; K21.9 Gastro-esophageal reflux disease without esophagitis; I73.9 Peripheral vascular disease, unspecified; Z79.01 Long term (current) use of anticoagulants; Z79.891 Long term (current) use of opiate analgesic; Z79.899 Other long term (current) drug therapy; I10 Essential (primary) hypertension
CPT/HCPCS: 36415; 74020; 80053; 81003; 85025; 85610; 87641; 90686; 93306; A9270-GY; J3420